=== PATIENT | male | born 1960 | race Caucasian/White ===

== ENCOUNTER 2020-05-20 09:58 | Outpatient (CLI) | payer MEDICARE, BC, SELFPAY ==
[2020-05-20 12:30] LABS: Basophils # 0.1 10^3/uL (0.0-0.1); Basophils % 0.9 %; Eosinophils # 0.2 10^3/uL (0.0-0.8); Eosinophils % 3.4 %; Hematocrit 41.2 % (42.0-52.0); Hemoglobin 13.5 g/dL (11.7-16.6); Lymphocytes # 1.2 10^3/uL (0.8-4.8); Lymphocytes % 21.2 %; Mean Corpuscular HGB Conc 32.8 g/dL (30.0-36.0); Mean Corpuscular Hemoglobin 30.1 pg (28.0-34.0); Mean Corpuscular Volume 91.8 fL (80-94); Mean Platelet Volume 8.7 fL (7.4-10.4); Monocytes # 0.5 10^3/uL (0.2-0.9); Monocytes % 9.5 %; Neutrophils # 3.65 10^3/uL (1.8-7.7); Neutrophils % 64.5 %; Nucleated Red Blood Cells % 0 %; Platelet Count 276 10^3/cmm (130-400); Red Blood Count 4.49 10^6/uL (4.1-5.3); Red Cell Distribution Width 12.8 % (12.1-15.1); White Blood Count 5.7 10^3/uL (4.0-10.0)
[2020-05-20 12:54] LABS: Alanine Aminotransferase 21 U/L (0-41); Albumin Level 4.1 g/dL (3.5-5.2); Alkaline Phosphatase 90 IU/L (40-130); Anion Gap 12.1 (5-19); Aspartate Amino Transferase 30 U/L (0-40); Blood Urea Nitrogen 14 mg/dL (6-20); Calcium 8.7 mg/dL (8.5-10.5); Carbon Dioxide 27 mmol/L (22-29); Chloride 100 mmol/L (98-107); Globulin 2.3 g/dL (1.3-4.6); Glomerular Filtration Rate 99.3 mL/min (90-130); Glucose 197 mg/dL (65-115); Osmolality Calculated 282 mOsm/kg (285-295); Potassium 4.1 mmol/L (3.5-5.1); Sodium 135 mmol/L (136-145); Total Bilirubin 0.3 mg/dL (0.15-1.2); Total Protein 6.4 g/dL (6.6-8.7)
--- NOTE | 2020-05-21 16:31 | ONC CON_ITS ---
Dr. Swenson New Patient Note Patient: Chris Byrne Unit #: [id number]: [id number] Dicatated By: Idalmis Swenson M.D.Date of Visit: May 20, 2020 Onc MED New Patient/Consult Referring Physician: No 'Referrals from' exist for this patient. History of Present Illness: Mr. Chris Byrne, 60-year-old gentleman with a history of multiple myeloma diagnosed early 2016 as per patient he has history of chronic back pain but just before diagnosis he had sudden onset of back pain which was so severe, he could not stand and had a fall, he went to see his chiropractor but without much relief eventually underwent MRI scan of the spine which showed significant abnormality at L2, in addition to evidence of anemia on his blood test patient was referred to cancer center in [place] where he was diagnosed with multiple myeloma information regarding staging and risks is not available. Initially he was treated with RVD regimen, as per patient after about 2 cycles patient was referred to [facility] where he underwent VDT-PACE induction chemotherapy followed by melphalan-based stem cell transportation twice, the first melphalan was 200 mg/m??? and second 1 was 140 mg/m??? likely because of C. difficile. The second VDT-PACE consolidation was at 75% of the dose. Subsequently patient achieved stringently defined complete remission with a negative bone marrow and no evidence of abnormal immunofixation in the serum or in the urine done in July 2017. He was recommended for maintenance therapy with carfilzomib, Revlimid and dexamethasone avoiding Velcade because of neuropathy. The maintenance regimen was started on September 18, 2017 with carfilzomib 27 mg/m??? on day 1, 2, 8, 9, 15 and 16 every 28 days cycle, Revlimid 20 mg p.o. daily for 21 days followed by 7 days off and dexamethasone 8 mg on the days of carfilzomib. On his follow-up visit in November [address] [facility], Revlimid was reduced to 15 mg p.o. daily for 21 days q. 28 days. Revlimid dose was eventually decreased further to 10 mg p.o. daily for 2 weeks on 1 week off because of persistent cytopenias. Dexamethasone was also reduced because of insomnia. Eventually, Revlimid was stopped in March 2019 because of persistent dysplastic features seen on the follow-up bone marrow Done in March 2019, as he continued to be in stringent remission, all chemotherapy was stopped in mid December 2019. He was also started on IVIG in April 2018 for hypogammaglobulinemia with recurrent significant infections, which was also discontinued in mid December 2019. Patient was hospitalized in [facility] in December 2018 with a bilateral pneumonia and sepsis with high-grade fever, confusion and was diagnosed with possible hepatic encephalopathy as his ammonia was elevated on 56 of unknown reason, seen by seat pack inspector Dr. Varghese, was diagnosed with fatty liver. Patient had bone marrow biopsies done in November 2018, there were some abnormalities reported at that time including left shift erythropoiesis, with megaloblastoid changes, and rare forms with irregular nuclear contours and nuclear budding. Repeat bone marrow biopsy done in March 2019, again showed some dysplastic features and as such patient was asked to stop Revlimid Another bone marrow evaluation done in July 2019 which confirmed no evidence of recurrence, unremarkable echocardiogram and patient was thought to be in stringent remission at that time he was recommended to continue with carfilzomib and dexamethasone, as mentioned earlier Revlimid was discontinued in March 2019 because of dysplastic changes seen in the bone marrow evaluation done in March 2019. And again as mentioned earlier chemotherapy was discontinued in December 2019 after total of almost 3 years of total including maintenance therapy. Patient has been complaining of lower extremity cramps occasionally occurs in the hand, MRI of thoracic/lumbar spine done in January 2019 showed small central disc protrusion at T7-T8 with minimal anterior thecal sac indentation. There was also L4 and L5 vertebral body findings consistent with recent to subacute compression fractures with an old compression fracture at L2 treated with kyphoplasty. Patient was referred to Dr. Maxwell from neurosurgery, no surgical intervention was necessary recommended except supportive care.. Patient went back to [facility] in March 2019, underwent thoracic level epidural injection with some improvement in the pain and he is using Flexeril as needed. He remains on OxyContin regularly and oxycodone as needed for his significant back pain. Patient was also complaining of off and on swelling of fingers and joints in the hand most pronounced in the thumbs, he was referred to rheumatology in January 2020, was diagnosed as having tendinitis, and requiring steroid injections. In March 2019 he was also referred to endocrinology , for diabetes mellitus and hypogonadism patient was treated with glipizide/Glucotrol and testosterone supplements. Patient was also having abdominal cramps and recurrent low-grade fever he was diagnosed with C. difficile based on stool panel by PCR in October 2019. He was seen by infectious disease and was started on tapered course of vancomycin, eventually stay indefinitely on vancomycin 125 mg 3 times a week, with this is diarrhea and abdominal cramps improved. But vancomycin was recommended to be stopped by [facility] in mid December 2019. Patient did undergo go L2 kyphoplasty in [facility].. As per patient he was expected to undergo 2 other kyphoplasty in [place] but was not recommended by surgeon. And he still has compression fracture of T10, L4 and L5. He continued to have some cognitive dysfunction but no confusion or focal neurological issue. Except persistent neuropathy specifically in the feet, mainly in the toes. With waxing and waning numbness, tingling, occasionally burning. Also has mild tremors but stable Occasionally nausea, being controlled with Phenergan. And also on Protonix. Past medical history significant for hospitalization in the end of February 2018 with Legionella pneumonia, bilateral lung infiltrate, in addition to two 7 mm pulmonary nodules on the right History of swelling in the right neck at the end of December 15, venous Doppler study in the vascular surgery office showed right IJ acute occlusive thrombosis, he was started on Eliquis with improvement of symptom, as he continued to have problem with the Port-A-Cath, it was exchanged by interventional transmission and coordination engineer in April 2018 and now functional. History of reaction to Zometa in the form of diffuse bone pain for several days, almost flulike symptoms. This occurred despite of him taking Claritin every day. With increased creatinine Zometa was discontinued and Xgeva was under consideration. History of B12 deficiency now on B12 supplement on monthly basis. Patient moved to [place] from [place], and decided to establish care in [place] along with continued follow-up at [facility]. Today, he is complaining of bilateral forearm itching and rash especially on the dorsum side., Also complaining of generalized weakness and fatigue but no fever chills, no nausea or vomiting, no diarrhea or constipation, no new bony pains, back pain is under control with current pain medication with long-acting OxyContin and oxycodone. Patient said he is going to myeloma clinic at [facility] next week for follow-up and work-up including bone marrow evaluation. No more abdominal pain or cramps or diarrhea. No recurrent fever mild peripheral neuropathy involving bilateral hand and feet. Past Medical History: Mr. Kingston medical history consists of anemia, b12 deficiency, fatty liver disease, gastroesophageal reflux disease, history of c-diff, history of right subclavian dvt, hypogonadism, left lung pulmonary nodules, multiple compression fractures, non melanoma skin cancer, peripheral neuropathy, and type II diabetes. Past Surgical History: Mr. Blancos surgical/procedural history consists of achilles, bone marrow aspiration/biopsy, port a cath, stent placement, and wrist. Medications: Acyclovir 1 Tablet (of 400 mg) Oral b.i.d., Ativan 1 Tablet (of 1 mg) Oral at bedtime, Claritin 1 Capsule (of 10 mg) Oral every am, Cyclobenzaprine HCl 1 Tablet (of 10 mg) Oral at bedtime, Eliquis 1 Tablet (of 5 mg) Oral b.i.d., Ferrous Sulfate 1 Tablet (of 325 (65 fe) mg) Oral daily, glipiZIDE ER 1 Tablet (of 2.5 mg) Tablet SR 24 HR Oral b.i.d., Klor-Con 10 1 Tablet (of 10 meq) Tablet, controlled release Oral b.i.d., Lomotil Tablet Oral PRN, Magnesium (250 mg) Tablet Oral daily, Melatonin (3 mg) Capsule Oral at bedtime, oxyCODONE HCl 1 Tablet (of 10 mg) Oral PRN, oxyCODONE HCl ER 1 Tablet (of 30 mg) Tablet ER 12 HR Abuse-Deterrent Oral b.i.d., Phenergan 1 Tablet (of 25 mg) Oral PRN, Protonix 1 Tablet (of 40 mg) Tablet, enteric coated Oral every am, Stool Softener 1 Tablet (of 100 mg) Oral b.i.d. Allergies: No Known Allergies. Social History: Mr. Byrne is and he is an unknown. He has no history of drinking. He has indicated exposure to the following products: chewing tobacco. pt states he chews alot. Family History: Mr. Byrne's mother at age 75: lymphoma. Mr. Byrne's father at age 75. Mr. Byrne has 1 sister who is . Review Of Symptoms: Constitutional - Appetite is diminished and weight is stable. No fever or hot flashes. Positive for night sweats. Energy level is poor, ENMT - No sinus congestion/drainage. No mouth sores. No sore throat or difficulty swallowing, Hematologic/Lymphatic - Positive for easy bruising and bleeding, Respiratory - No shortness of breath. No cough. No pleuritic pain or hemoptysis, Cardiovascular - No angina pain. No palpitations, Gastrointestinal - No nausea or vomiting. No heartburn or acid reflux. Pt flucuates between diarrhea and constipation. No blood in the stool or black stools, Genitourinary (M) - No dysuria or hematuria. Positive for urinary frequency. No urgency or incontinence, Musculoskeletal - Positive for joint pain, Neurologic - No headache or dizziness. No numbness or tingling. No other focal neurologic symptoms, Psychiatric - No anxiety or depression. Positive for insomnia. Vital Signs: Performed on May 20, 2020 10:43: 5, 34.92 (HIGH), 2.27 sq.m, 70.00 in, 97 %, 83 /min, 20 /min, 133/92 mm(hg), 97.5 F (LOW), and 243.4 lbs (HIGH). Performance Status: 1 - No physically strenuous activity, but ambulatory and able to carry out light or sedentary work (e.g. office work, light house work). (ECOG) Physical Examination: ENMT - No mouth sores, no thrush, no jaundice, Respiratory - Lungs are clear, Cardiovascular - Regular rate and rhythm of heart, Abdomen - Soft, bowel sounds present, Extremities - No lower extremity edema, but fine maculopapular rash involving dorsum of bilateral forearm, no oozing or blister seen. Lab/Imaging: Most recent lab results are not available for this patient. 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 Patient continued with carfilzomib and dexamethasone till mid December 2019, now stringently defined complete remission. Compression fracture related to multiple myeloma, involvement of T10, L2, L4 and L5. Status post kyphoplasty for L2. Chronic back pain on OxyContin 30 mg p.o. twice a day and OxyIR 10 mg as needed and Flexeril as needed. Status post epidural injection at multiple levels. Peripheral neuropathy due to chemotherapy, now being observed. History of acute kidney injury, and allergic reaction including bone pain despite of Claritin due to Zometa which was discontinued. Xgeva was discussed. DVT of right IJ Port-A-Cath setting, he is on Eliquis 5 mg twice a day, history of Port-A-Cath exchange no functional. Recommended to continue with Eliquis as long as patient has Port-A-Cath.. Common variable immune deficiency/hypogammaglobinemia with recurrent significant respiratory infection status post IVIG till December 2019. Insomnia, controlled with Ativan 1 mg at night with melatonin. B12 deficiency, on monthly B12 supplements. Diabetes mellitus on glipizide 2.5 mg daily. Hypogonadism, on testosterone supplement. Fatty liver History of C. difficile infection causing abdominal cramps and diarrhea treated with tapering dose of vancomycin which was discontinued in December 2019. Fatigue, multifactorial Rash with itching primarily on the forearm, treated with CeraVe cream with some success. Plan: Discussed with patient regarding his concerns questions and follow-up plans, patient is being followed at myeloma clinic at [facility] and he is scheduled to go there next week for follow-up visit as well as work-up including bone marrow evaluation. We will follow-up with them and their guidelines As far as bilateral forearm skin rash/itching is concerned, patient said he tried CeraVe cream, it did not help him much, clinically it appears he may have mild contact dermatitis as no other parts of body is involved with rash or itching he was advised to use [id number] hydrocortisone cream, if no improvement will refer him to dermatology for evaluation As per the generalized weakness and fatigue is concerned, it appears multifactorial could be due to chronic narcotic use for chronic back pain, patient will discuss with pain clinic at [facility] for dose adjustment if needed.We will also renew his prescriptions and arrange a referral to require physicians In the meantime we will flush his Port-A-Cath today and obtain baseline CBC CMP and patient return to clinic in 1 month for port flush and follow-up. Signed By: Idalmis Swenson M.D. <<Signature on File>>
== END 2020-05-20 09:59 | disposition home or self-care (01) ==
LOC: ONCMED 10:07
PROVIDERS: Visit Provider Internal Medicine Hematology & Oncology
DX: C90.00 Multiple myeloma not having achieved remission (principal); G62.0 Drug-induced polyneuropathy; T45.1X5A Adverse effect of antineoplastic and immunosuppressive drugs, initial encounter; G47.00 Insomnia, unspecified; D51.9 Vitamin B12 deficiency anemia, unspecified; K76.0 Fatty (change of) liver, not elsewhere classified; K21.9 Gastro-esophageal reflux disease without esophagitis; E11.9 Type 2 diabetes mellitus without complications
CPT/HCPCS: 36591; 80053; 85025; 99204

== ENCOUNTER → 2020-05-29 11:37 | Outpatient (BNVA) | payer MEDICARE, BC, SELFPAY | PROVIDERS: Visit Provider Nurse Practitioner Family | DX: Z11.59 Encounter for screening for other viral diseases (principal) | CPT/HCPCS: 87635 ==

== ENCOUNTER → 2020-06-11 10:46 | Outpatient (BNVA) | payer MEDICARE, BC, SELFPAY | PROVIDERS: Referring Provider Internal Medicine Hematology & Oncology; Visit Provider Anesthesiology | DX: G89.29 Other chronic pain (principal); M54.9 Dorsalgia, unspecified; F17.220 Nicotine dependence, chewing tobacco, uncomplicated; Z79.891 Long term (current) use of opiate analgesic; Z71.6 Tobacco abuse counseling | CPT/HCPCS: 99213 ==

== ENCOUNTER 2020-06-19 09:23 | Outpatient (CLI) | payer MEDICARE, BC, SELFPAY ==
[2020-06-19 10:35] LABS: Basophils # 0.1 10^3/uL (0.0-0.1); Basophils % 1.1 %; Eosinophils % 0.2 %; Hematocrit 39.8 % (42.0-52.0); Hemoglobin 13.1 g/dL (11.7-16.6); Lymphocytes # 1.5 10^3/uL (0.8-4.8); Lymphocytes % 23.1 %; Mean Corpuscular HGB Conc 32.9 g/dL (30.0-36.0); Mean Corpuscular Hemoglobin 30.3 pg (28.0-34.0); Mean Corpuscular Volume 92.1 fL (80-94); Mean Platelet Volume 8.9 fL (7.4-10.4); Monocytes # 0.7 10^3/uL (0.2-0.9); Neutrophils % 65.1 %; Nucleated Red Blood Cells % 0 %; Platelet Count 268 10^3/cmm (130-400); Red Blood Count 4.32 10^6/uL (4.1-5.3); Red Cell Distribution Width 13.7 % (12.1-15.1); White Blood Count 6.6 10^3/uL (4.0-10.0)
[2020-06-19 10:45] LABS: Alanine Aminotransferase 19 U/L (0-41); Albumin Level 3.9 g/dL (3.5-5.2); Alkaline Phosphatase 95 IU/L (40-130); Anion Gap 12.1 (5-19); Aspartate Amino Transferase 28 U/L (0-40); Blood Urea Nitrogen 14 mg/dL (6-20); Calcium 8.6 mg/dL (8.5-10.5); Carbon Dioxide 27 mmol/L (22-29); Chloride 102 mmol/L (98-107); Globulin 2.1 g/dL (1.3-4.6); Glomerular Filtration Rate 68.8 mL/min (90-130); Glucose 211 mg/dL (65-115); Immunoglobulin IGA 64 mg/dL (70-400); Immunoglobulin IGG 599 mg/dL (700-1600); Osmolality Calculated 286 mOsm/kg (285-295); Potassium 4.1 mmol/L (3.5-5.1); Sodium 137 mmol/L (136-145); Total Bilirubin 0.5 mg/dL (0.15-1.2)
[2020-06-19 11:05] LABS: Immunoglobulin IGM 15 mg/dL (40-230)
--- NOTE | 2020-06-19 12:38 | ONC FU_ITS ---
Dr. Swenson follow up note Patient: Chris Byren Unit #: [id number]: [id number] Dicatated By: Idalmis Swenson M.D.Date of Visit:Jun 19, 2020 Onc Med Follow-up/Prog Note History of Present Illness: Mr. Chris Byrne, 60-year-old gentleman with a history of multiple myeloma diagnosed early 2016 as per patient he has history of chronic back pain but just before diagnosis he had sudden onset of back pain which was so severe, he could not stand and had a fall, he went to see his chiropractor but without much relief eventually underwent MRI scan of the spine which showed significant abnormality at L2, in addition to evidence of anemia on his blood test patient was referred to cancer center in [place] where he was diagnosed with multiple myeloma information regarding staging and risks is not available. Initially he was treated with RVD regimen, as per patient after about 2 cycles patient was referred to [facility] where he underwent VDT-PACE induction chemotherapy followed by melphalan-based stem cell transportation twice, the first melphalan was 200 mg/m??? and second 1 was 140 mg/m??? likely because of C. difficile. The second VDT-PACE consolidation was at 75% of the dose. Subsequently patient achieved stringently defined complete remission with a negative bone marrow and no evidence of abnormal immunofixation in the serum or in the urine done in July 2017. He was recommended for maintenance therapy with carfilzomib, Revlimid and dexamethasone avoiding Velcade because of neuropathy. The maintenance regimen was started on September 18, 2017 with carfilzomib 27 mg/m??? on day 1, 2, 8, 9, 15 and 16 every 28 days cycle, Revlimid 20 mg p.o. daily for 21 days followed by 7 days off and dexamethasone 8 mg on the days of carfilzomib. On his follow-up visit in November 2017 at [facility], Revlimid was reduced to 15 mg p.o. daily for 21 days q. 28 days. Revlimid dose was eventually decreased further to 10 mg p.o. daily for 2 weeks on 1 week off because of persistent cytopenias. Dexamethasone was also reduced because of insomnia. Eventually, Revlimid was stopped in March 2019 because of persistent dysplastic features seen on the follow-up bone marrow Done in March 2019, as he continued to be in stringent remission, all chemotherapy was stopped in mid December 2019. He was also started on IVIG in April 2018 for hypogammaglobulinemia with recurrent significant infections, which was also discontinued in mid December 2019. Patient was hospitalized in [facility] in December 2018 with a bilateral pneumonia and sepsis with high-grade fever, confusion and was diagnosed with possible hepatic encephalopathy as his ammonia was elevated on 56 of unknown reason, seen by licensed bondsman Dr. Varghese, was diagnosed with fatty liver. Patient had bone marrow biopsies done in November 2018, there were some abnormalities reported at that time including left shift erythropoiesis, with megaloblastoid changes, and rare forms with irregular nuclear contours and nuclear budding. Repeat bone marrow biopsy done in March 2019, again showed some dysplastic features and as such patient was asked to stop Revlimid Another bone marrow evaluation done in July 2019 which confirmed no evidence of recurrence, unremarkable echocardiogram and patient was thought to be in stringent remission at that time he was recommended to continue with carfilzomib and dexamethasone, as mentioned earlier Revlimid was discontinued in March 2019 because of dysplastic changes seen in the bone marrow evaluation done in March 2019. And again as mentioned earlier chemotherapy was discontinued in December 2019 after total of almost 3 years of total including maintenance therapy. Patient has been complaining of lower extremity cramps occasionally occurs in the hand, MRI of thoracic/lumbar spine done in January 2019 showed small central disc protrusion at T7-T8 with minimal anterior thecal sac indentation. There was also L4 and L5 vertebral body findings consistent with recent to subacute compression fractures with an old compression fracture at L2 treated with kyphoplasty. Patient was referred to Dr. Maxwell from neurosurgery, no surgical intervention was necessary recommended except supportive care.. Patient went back to [facility] in March 2019, underwent thoracic level epidural injection with some improvement in the pain and he is using Flexeril as needed. He remains on OxyContin regularly and oxycodone as needed for his significant back pain. Patient was also complaining of off and on swelling of fingers and joints in the hand most pronounced in the thumbs, he was referred to rheumatology in January 2020, was diagnosed as having tendinitis, and requiring steroid injections. In March 2019 he was also referred to endocrinology , for diabetes mellitus and hypogonadism patient was treated with glipizide/Glucotrol and testosterone supplements. Patient was also having abdominal cramps and recurrent low-grade fever he was diagnosed with C. difficile based on stool panel by PCR in October 2019. He was seen by infectious disease and was started on tapered course of vancomycin, eventually stay indefinitely on vancomycin 125 mg 3 times a week, with this is diarrhea and abdominal cramps improved. But vancomycin was recommended to be stopped by [facility] in mid December 2019. Patient did undergo go L2 kyphoplasty in [facility].. As per patient he was expected to undergo 2 other kyphoplasty in [place] but was not recommended by surgeon. And he still has compression fracture of T10, L4 and L5. He continued to have some cognitive dysfunction but no confusion or focal neurological issue. Except persistent neuropathy specifically in the feet, mainly in the toes. With waxing and waning numbness, tingling, occasionally burning. Also has mild tremors but stable Occasionally nausea, being controlled with Phenergan. And also on Protonix. Past medical history significant for hospitalization in the end of February 2018 with Legionella pneumonia, bilateral lung infiltrate, in addition to two 7 mm pulmonary nodules on the right History of swelling in the right neck at the end of December 15, venous Doppler study in the vascular surgery office showed right IJ acute occlusive thrombosis, he was started on Eliquis with improvement of symptom, as he continued to have problem with the Port-A-Cath, it was exchanged by interventional underwater roboticist in April 2018 and now functional. History of reaction to Zometa in the form of diffuse bone pain for several days, almost flulike symptoms. This occurred despite of him taking Claritin every day. With increased creatinine Zometa was discontinued and Xgeva was under consideration. History of B12 deficiency now on B12 supplement on monthly basis. Patient moved to [place] from [place], and decided to establish care in [place] along with continued follow-up at [facility]. Came for follow-up, denies any specific complaint except chronic bone pain and generalized weakness and fatigue, patient recently went to [facility] myeloma clinic where he underwent follow-up evaluation including bone marrow, 24-hour urine and MRI scan of the bone and he was confirmed being in complete remission. Patient denies any fever chills, denies any nausea or vomiting denies any diarrhea or constipation, denies any headaches. Denies any shortness of breath at rest. Patient was referred to pain clinic for his chronic pain management but patient did not like them as per patient they want to have total control over his pain medication without any guidance from [facility] and he did not like that and decided not to follow-up with them that they are requesting us to give him prescription for his pain medication. Medications: Acyclovir 1 Tablet (of 400 mg) Oral b.i.d., Ativan 1 Tablet (of 1 mg) Oral at bedtime, Claritin 1 Capsule (of 10 mg) Oral every am, Cyclobenzaprine HCl 1 Tablet (of 10 mg) Oral at bedtime, Eliquis 1 Tablet (of 5 mg) Oral b.i.d., Ferrous Sulfate 1 Tablet (of 325 (65 fe) mg) Oral daily, glipiZIDE ER 1 Tablet (of 2.5 mg) Tablet SR 24 HR Oral b.i.d., Klor-Con 10 1 Tablet (of 10 meq) Tablet, controlled release Oral b.i.d., Lomotil Tablet Oral PRN, Magnesium (250 mg) Tablet Oral daily, Melatonin (3 mg) Capsule Oral at bedtime, oxyCODONE HCl 1 Tablet (of 10 mg) Oral PRN, oxyCODONE HCl ER 1 Tablet (of 30 mg) Tablet ER 12 HR Abuse-Deterrent Oral b.i.d., Phenergan 1 Tablet (of 25 mg) Oral PRN, Protonix 1 Tablet (of 40 mg) Tablet, enteric coated Oral every am, Stool Softener 1 Tablet (of 100 mg) Oral b.i.d. Allergies: No Known Allergies. Review of Systems: Constitutional - Appetite is diminished and weight is stable. No fever or hot flashes. Positive for night sweats. Energy level is poor, ENMT - No sinus congestion/drainage. No mouth sores. No sore throat or difficulty swallowing, Hematologic/Lymphatic - Positive for easy bruising and bleeding, Respiratory - No shortness of breath. No cough. No pleuritic pain or hemoptysis, Cardiovascular - No angina pain. No palpitations, Gastrointestinal - No nausea or vomiting. No heartburn or acid reflux. Pt flucuates between diarrhea and constipation. No blood in the stool or black stools, Genitourinary (M) - No dysuria or hematuria. Positive for urinary frequency. No urgency or incontinence, Musculoskeletal - Positive for joint pain, Neurologic - No headache or dizziness. No numbness or tingling. No other focal neurologic symptoms, Psychiatric - No anxiety or depression. Positive for insomnia. Vital Signs: Performed on Jun 19, 2020 10:59 Height - 70.00 in Weight - 243.6 lbs (HIGH) BSA - 2.27 sq.m BMI - 34.95 (HIGH) Temperature - 97.3 F (LOW) Pulse - 89 /min Respiration - 16 /min BP - 129/93 mm(hg) O2 Sat - 98 % Pain - 4 Performance Status: 0 - Fully active, able to carry on all predisease activities without restrictions. (ECOG) Physical Examination: ENMT - No mouth sores, no thrush, no jaundice, Respiratory - Lungs are clear, Cardiovascular - Regular rate and rhythm of heart, Abdomen - Soft, bowel sounds present, Extremities - No visible Edema. Lab/Imaging: Test performed on May 20, 2020 12:17 Sodium 135 mmol/L Potassium 4.1 mmol/L Chloride 100 mmol/L CO2 27 mmol/L Anion Gap 12.1 BUN 14 mg/dL Creatinine 0.8 mg/dL Cr Clearance (Est) 157.1800 mL/min eGFR 99.3 mL/min Glucose 197 mg/dL Calcium 8.7 mg/dL Protein, Total 6.4 g/dL Albumin 4.1 g/dL Globulin 2.3 g/dL Bilirubin, Total 0.3 mg/dL ALT (SGPT) 21 U/L AST (SGOT) 30 U/L Alkaline Phosphatase 90 IU/L WBC 5.7 10 3/uL RBC 4.49 10 6/uL HGB 13.5 g/dL HCT 41.2 % MCV 91.8 fL MCH 30.1 pg MCHC 32.8 g/dL RDW 12.8 % Platelet Count 276 10 3/cmm MPV 8.7 fL Neutrophils 3.65 10 3/uL Lymphocytes 1.2 10 3/uL Monocytes 0.5 10 3/uL Eosinophils 0.2 10 3/uL Basophils 0.1 10 3/uL Neutrophil % 64.5 % Lymphocyte % 21.2 % Monocyte % 9.5 % Eosinophil % 3.4 % Basophils % 0.9 % NRBC % 0 % Impression: Multiple myeloma, diagnosed in early 2016, status post melphalan based high-dose chemotherapy with stem cell x2 at [facility] followed by maintenance therapy with carfilzomib/Revlimid/dexamethasone, Revlimid was discontinued because of progressive cytopenia and 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 Patient continued with carfilzomib and dexamethasone till mid December 2019, now stringently defined complete remission. Compression fracture related to multiple myeloma, involvement of T10, L2, L4 and L5. Status post kyphoplasty for L2. Chronic back pain on OxyContin 30 mg p.o. twice a day and OxyIR 10 mg as needed and Flexeril as needed. Status post epidural injection at multiple levels. Peripheral neuropathy due to chemotherapy, now being observed. History of acute kidney injury, and allergic reaction including bone pain despite of Claritin due to Zometa which was discontinued. Xgeva was discussed. DVT of right IJ Port-A-Cath setting, he is on Eliquis 5 mg twice a day, history of Port-A-Cath exchange no functional. Recommended to continue with Eliquis as long as patient has Port-A-Cath.. Common variable immune deficiency/hypogammaglobinemia with recurrent significant respiratory infection status post IVIG till December 2019. Insomnia, controlled with Ativan 1 mg at night with melatonin. B12 deficiency, on monthly B12 supplements. Diabetes mellitus on glipizide 2.5 mg daily. Hypogonadism, on testosterone supplement. Fatty liver History of C. difficile infection causing abdominal cramps and diarrhea treated with tapering dose of vancomycin which was discontinued in December 2019. Fatigue, multifactorial Rash with itching primarily on the forearm, treated with CeraVe cream with some success. Plan: Discussed with patient regarding his labs white blood count 6.6 hemoglobin 13.1 crit 39.8 platelets 268,000 CMP within normal limit except glucose 211 creatinine 1.1 and quantitative immunoglobin shows IgG 599 IgA 64 and SPEP is pending Clinically, patient is doing well with no signs symptom suggestive of recurrence of disease, recently underwent extensive follow-up work-up which included bone marrow evaluation/24-hour urine protein electrophoresis/immunofixation and MRI scan of the bones at [facility], as per patient he was informed being in complete remission. And he was recommended to continue with CBC CMP and SPEP on monthly basis and myeloma clinic at [facility] will monitor. Patient has chronic pain due to myeloma induced damage to his bones although in remission but still with significant pain requiring narcotics, he was referred to pain clinic for further management but patient did not like when he was informed that pain clinic will have total control without guidance from [facility] nor is requesting prescription for narcotics from our clinic as he go to [facility] every 6 months. We will give him prescriptions requested by him and then he will return to clinic in 3 months in the meantime he will continue port maintenance. Patient will also continue with monthly CBC CMP and SPEP as required by [facility] myeloma clinic and follow their instruction. Signed By: Idalmis Swenson M.D. <<Signature on File>>
== END 2020-06-19 09:24 | disposition home or self-care (01) ==
LOC: ONCMED 09:27
PROVIDERS: Visit Provider Internal Medicine Hematology & Oncology
DX: C90.01 Multiple myeloma in remission (principal); G89.3 Neoplasm related pain (acute) (chronic); E53.8 Deficiency of other specified B group vitamins; Z79.891 Long term (current) use of opiate analgesic; Z95.828 Presence of other vascular implants and grafts
CPT/HCPCS: 36591; 80053; 82248; 82784; 84155; 84165; 85025; 99214

== ENCOUNTER → 2020-07-07 13:38 | Outpatient (BNVA) | payer MEDICARE, BC, SELFPAY | PROVIDERS: Referring Provider Internal Medicine Hematology & Oncology; Visit Provider Orthopaedic Surgery | DX: M79.646 Pain in unspecified finger(s) (principal); R52 Pain, unspecified | CPT/HCPCS: 73080; 73140 ==

== ENCOUNTER 2020-07-08 09:03 | Outpatient (CLI) | payer MEDICARE, BC, SELFPAY ==
--- NOTE | 2020-07-10 13:56 | ONC FU_ITS ---
Dr. Swenson follow up note Patient: Chris Byrne Unit #: [id number]: [id number] Dicatated By: Idalmis Swenson M.D.Date of Visit:Jul 08, 2020 Onc Med Follow-up/Prog Note History of Present Illness: Mr. Chris Byrne, 60-year-old gentleman with a history of multiple myeloma diagnosed early 2016 as per patient he has history of chronic back pain but just before diagnosis he had sudden onset of back pain which was so severe, he could not stand and had a fall, he went to see his chiropractor but without much relief eventually underwent MRI scan of the spine which showed significant abnormality at L2, in addition to evidence of anemia on his blood test patient was referred to cancer center in [place] where he was diagnosed with multiple myeloma information regarding staging and risks is not available. Initially he was treated with RVD regimen, as per patient after about 2 cycles patient was referred to [facility] where he underwent VDT-PACE induction chemotherapy followed by melphalan-based stem cell transportation twice, the first melphalan was 200 mg/m??? and second 1 was 140 mg/m??? likely because of C. difficile. The second VDT-PACE consolidation was at 75% of the dose. Subsequently patient achieved stringently defined complete remission with a negative bone marrow and no evidence of abnormal immunofixation in the serum or in the urine done in July 2017. He was recommended for maintenance therapy with carfilzomib, Revlimid and dexamethasone avoiding Velcade because of neuropathy. The maintenance regimen was started on September 18, 2017 with carfilzomib 27 mg/m??? on day 1, 2, 8, 9, 15 and 16 every 28 days cycle, Revlimid 20 mg p.o. daily for 21 days followed by 7 days off and dexamethasone 8 mg on the days of carfilzomib. On his follow-up visit in November 2017 at [facility], Revlimid was reduced to 15 mg p.o. daily for 21 days q. 28 days. Revlimid dose was eventually decreased further to 10 mg p.o. daily for 2 weeks on 1 week off because of persistent cytopenias. Dexamethasone was also reduced because of insomnia. Eventually, Revlimid was stopped in March 2019 because of persistent dysplastic features seen on the follow-up bone marrow Done in March 2019, as he continued to be in stringent remission, all chemotherapy was stopped in mid December 2019. He was also started on IVIG in April 2018 for hypogammaglobulinemia with recurrent significant infections, which was also discontinued in mid December 2019. Patient was hospitalized in [facility] in December 2018 with a bilateral pneumonia and sepsis with high-grade fever, confusion and was diagnosed with possible hepatic encephalopathy as his ammonia was elevated on 56 of unknown reason, seen by forest worker Dr. Varghese, was diagnosed with fatty liver. Patient had bone marrow biopsies done in November 2018, there were some abnormalities reported at that time including left shift erythropoiesis, with megaloblastoid changes, and rare forms with irregular nuclear contours and nuclear budding. Repeat bone marrow biopsy done in March 2019, again showed some dysplastic features and as such patient was asked to stop Revlimid Another bone marrow evaluation done in July 2019 which confirmed no evidence of recurrence, unremarkable echocardiogram and patient was thought to be in stringent remission at that time he was recommended to continue with carfilzomib and dexamethasone, as mentioned earlier Revlimid was discontinued in March 2019 because of dysplastic changes seen in the bone marrow evaluation done in March 2019. And again as mentioned earlier chemotherapy was discontinued in December 2019 after total of almost 3 years of total including maintenance therapy. Patient has been complaining of lower extremity cramps occasionally occurs in the hand, MRI of thoracic/lumbar spine done in January 2019 showed small central disc protrusion at T7-T8 with minimal anterior thecal sac indentation. There was also L4 and L5 vertebral body findings consistent with recent to subacute compression fractures with an old compression fracture at L2 treated with kyphoplasty. Patient was referred to Dr. Maxwell from neurosurgery, no surgical intervention was necessary recommended except supportive care.. Patient went back to [facility] in March 2019, underwent thoracic level epidural injection with some improvement in the pain and he is using Flexeril as needed. He remains on OxyContin regularly and oxycodone as needed for his significant back pain. Patient was also complaining of off and on swelling of fingers and joints in the hand most pronounced in the thumbs, he was referred to rheumatology in January 2020, was diagnosed as having tendinitis, and requiring steroid injections. In March 2019 he was also referred to endocrinology , for diabetes mellitus and hypogonadism patient was treated with glipizide/Glucotrol and testosterone supplements. Patient was also having abdominal cramps and recurrent low-grade fever he was diagnosed with C. difficile based on stool panel by PCR in October 2019. He was seen by infectious disease and was started on tapered course of vancomycin, eventually stay indefinitely on vancomycin 125 mg 3 times a week, with this is diarrhea and abdominal cramps improved. But vancomycin was recommended to be stopped by [facility] in mid December 2019. Patient did undergo go L2 kyphoplasty in [facility].. As per patient he was expected to undergo 2 other kyphoplasty in [place] but was not recommended by surgeon. And he still has compression fracture of T10, L4 and L5. He continued to have some cognitive dysfunction but no confusion or focal neurological issue. Except persistent neuropathy specifically in the feet, mainly in the toes. With waxing and waning numbness, tingling, occasionally burning. Also has mild tremors but stable Occasionally nausea, being controlled with Phenergan. And also on Protonix. Past medical history significant for hospitalization in the end of February 2018 with Legionella pneumonia, bilateral lung infiltrate, in addition to two 7 mm pulmonary nodules on the right History of swelling in the right neck at the end of December 15, venous Doppler study in the vascular surgery office showed right IJ acute occlusive thrombosis, he was started on Eliquis with improvement of symptom, as he continued to have problem with the Port-A-Cath, it was exchanged by interventional premium cancellation clerk in April 2018 and now functional. History of reaction to Zometa in the form of diffuse bone pain for several days, almost flulike symptoms. This occurred despite of him taking Claritin every day. With increased creatinine Zometa was discontinued and Xgeva was under consideration. History of B12 deficiency now on B12 supplement on monthly basis. Patient moved to [place] from [place], and decided to establish care in [place] along with continued follow-up at [facility]. patient recently went to [facility] myeloma clinic where he underwent follow-up evaluation including bone marrow, 24-hour urine and MRI scan of the bone and he was confirmed being in complete remission. Came for follow-up as patient's has some issues and concerns regarding his prescriptions especially pain medication. Denies any fever chills denies any nausea or vomiting denies any new bony pains except chronic back pain and generalized musculoskeletal pain. Appetite is good. Medications: Acyclovir 1 Tablet (of 400 mg) Oral b.i.d., Ativan 1 Tablet (of 1 mg) Oral at bedtime, Claritin 1 Capsule (of 10 mg) Oral every am, Cyclobenzaprine HCl 1 Tablet (of 10 mg) Oral at bedtime, Eliquis 1 Tablet (of 5 mg) Oral b.i.d., Ferrous Sulfate 1 Tablet (of 325 (65 fe) mg) Oral daily, glipiZIDE ER 1 Tablet (of 2.5 mg) Tablet SR 24 HR Oral b.i.d., Klor-Con 10 1 Tablet (of 10 meq) Tablet, controlled release Oral b.i.d., Lomotil Tablet Oral PRN, Magnesium (250 mg) Tablet Oral daily, Melatonin (3 mg) Capsule Oral at bedtime, oxyCODONE HCl 1 Tablet (of 10 mg) Oral PRN, OxyCONTIN 1 Tablet (of 30 mg) Tablet ER 12 HR Abuse-Deterrent Oral b.i.d., Phenergan 1 Tablet (of 25 mg) Oral PRN, Protonix 1 Tablet (of 40 mg) Tablet, enteric coated Oral every am, Stool Softener 1 Tablet (of 100 mg) Oral b.i.d. Allergies: No Known Allergies. Review of Systems: Constitutional - Appetite is diminished and weight is stable. No fever or hot flashes. Positive for night sweats. Energy level is poor, ENMT - No sinus congestion/drainage. No mouth sores. No sore throat or difficulty swallowing, Hematologic/Lymphatic - Positive for easy bruising and bleeding, Respiratory - No shortness of breath. No cough. No pleuritic pain or hemoptysis, Cardiovascular - No angina pain. No palpitations, Gastrointestinal - No nausea or vomiting. No heartburn or acid reflux. Pt flucuates between diarrhea and constipation. No blood in the stool or black stools, Genitourinary (M) - No dysuria or hematuria. Positive for urinary frequency. No urgency or incontinence, Musculoskeletal - Positive for joint pain, Neurologic - No headache or dizziness. No numbness or tingling. No other focal neurologic symptoms, Psychiatric - No anxiety or depression. Positive for insomnia. Vital Signs: Performed on Jul 08, 2020 09:10 Height - 70.00 in Weight - 240.8 lbs (LOW) BSA - 2.26 sq.m BMI - 34.55 (HIGH) Temperature - 97.3 F (LOW) Pulse - 89 /min Respiration - 24 /min BP - 143/95 mm(hg) (HIGH) O2 Sat - 95 % (LOW) Pain - 0 Performance Status: 0 - Fully active, able to carry on all predisease activities without restrictions. (ECOG) Physical Examination: ENMT - No mouth sores, no thrush, Respiratory - Lungs are clear, Cardiovascular - Regular rate and rhythm of heart, Abdomen - Soft, bowel sounds present, Extremities - No visible edema. Lab/Imaging: Test performed on May 20, 2020 12:17 Sodium 135 mmol/L Potassium 4.1 mmol/L Chloride 100 mmol/L CO2 27 mmol/L Anion Gap 12.1 BUN 14 mg/dL Creatinine 0.8 mg/dL Cr Clearance (Est) 157.1800 mL/min eGFR 99.3 mL/min Glucose 197 mg/dL Calcium 8.7 mg/dL Protein, Total 6.4 g/dL Albumin 4.1 g/dL Globulin 2.3 g/dL Bilirubin, Total 0.3 mg/dL ALT (SGPT) 21 U/L AST (SGOT) 30 U/L Alkaline Phosphatase 90 IU/L WBC 5.7 10 3/uL RBC 4.49 10 6/uL HGB 13.5 g/dL HCT 41.2 % MCV 91.8 fL MCH 30.1 pg MCHC 32.8 g/dL RDW 12.8 % Platelet Count 276 10 3/cmm MPV 8.7 fL Neutrophils 3.65 10 3/uL Lymphocytes 1.2 10 3/uL Monocytes 0.5 10 3/uL Eosinophils 0.2 10 3/uL Basophils 0.1 10 3/uL Neutrophil % 64.5 % Lymphocyte % 21.2 % Monocyte % 9.5 % Eosinophil % 3.4 % Basophils % 0.9 % NRBC % 0 % Impression: Multiple myeloma, diagnosed in early 2016, status post melphalan based high-dose chemotherapy with stem cell x2 at [facility] followed by maintenance therapy with carfilzomib/Revlimid/dexamethasone, Revlimid was discontinued because of progressive cytopenia and 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 Patient continued with carfilzomib and dexamethasone till mid December 2019, now stringently defined complete remission. Compression fracture related to multiple myeloma, involvement of T10, L2, L4 and L5. Status post kyphoplasty for L2. Chronic back pain on OxyContin 30 mg p.o. twice a day and OxyIR 10 mg as needed and Flexeril as needed. Status post epidural injection at multiple levels. Peripheral neuropathy due to chemotherapy, now being observed. History of acute kidney injury, and allergic reaction including bone pain despite of Claritin due to Zometa which was discontinued. Xgeva was discussed. DVT of right IJ Port-A-Cath setting, he is on Eliquis 5 mg twice a day, history of Port-A-Cath exchange no functional. Recommended to continue with Eliquis as long as patient has Port-A-Cath.. Common variable immune deficiency/hypogammaglobinemia with recurrent significant respiratory infection status post IVIG till December 2019. Insomnia, controlled with Ativan 1 mg at night with melatonin. B12 deficiency, on monthly B12 supplements. Diabetes mellitus on glipizide 2.5 mg daily. Hypogonadism, on testosterone supplement. Fatty liver History of C. difficile infection causing abdominal cramps and diarrhea treated with tapering dose of vancomycin which was discontinued in December 2019. Fatigue, multifactorial Rash with itching primarily on the forearm, treated with CeraVe cream with some success. Plan: Discussed with patient and his regarding his prescriptions and pain management. Patient was advised , as he is in complete remission and still requiring high dose of narcotics, I will recommend him to go to pain clinic per proper evaluation and pain management patient did go to pain clinic here but his did not like their first experience there, as, he was asked for random urine test and pill count, moreover , when pain clinic physician told him that he will be in charge of his pain medication not [facility] , as patient requested, he did not like it , so he wants us to fill his pain medication prescriptions and this issue was discussed with [facility] BMT clinic and they also recommended pain clinic evaluation regarding narcotic use and patient's safety, now patient and his , agreed to go to pain clinic for evaluation and management. And also, as far as follow-up is concerned, patient is being followed at [facility] every 3 to 4 months and BMT at [facility] is also checking his myeloma panel on monthly basis and patient was provided kits for Sample collection , as per BMT clinic all he has to go to local lab or clinic for a blood drawn and then send Back to them for the testing. As far as other prescription like acyclovir , as per BMT clinic at [facility], patient was given prescription for that and they will manage that. And now it is clear to the patient and his that they have to go to pain clinic for pain management and for prophylactic anti-infective, BMT clinic at [facility] will manage and they will also monitor his myeloma panel as patient was provided kits to send samples to them. And we will see him on as-needed basis as patient is going to [facility] on regular basis every 3 to 4 months and they are following him with monthly myeloma panel.. Patient will follow-up with his PMD on regular basis Signed By: Idalmis Swenson M.D. <<Signature on File>>
== END 2020-07-08 09:04 | disposition home or self-care (01) ==
LOC: ONCMED 09:07
PROVIDERS: PCP Internal Medicine; Visit Provider Internal Medicine Hematology & Oncology
DX: C90.01 Multiple myeloma in remission (principal); G89.29 Other chronic pain; Z79.891 Long term (current) use of opiate analgesic; G62.0 Drug-induced polyneuropathy; T45.1X5D Adverse effect of antineoplastic and immunosuppressive drugs, subsequent encounter; E53.8 Deficiency of other specified B group vitamins; E11.9 Type 2 diabetes mellitus without complications; Z79.84 Long term (current) use of oral hypoglycemic drugs; K76.0 Fatty (change of) liver, not elsewhere classified; Z86.718 Personal history of other venous thrombosis and embolism; Z79.01 Long term (current) use of anticoagulants; Z92.22 Personal history of monoclonal drug therapy
CPT/HCPCS: G0463

== ENCOUNTER 2020-07-22 13:45 | Outpatient (CLI) | payer MEDICARE, BC, SELFPAY | END 2020-07-22 13:46 | disposition home or self-care (01) | LOC: ONCMED 13:50 | PROVIDERS: PCP Internal Medicine; Visit Provider Internal Medicine Hematology & Oncology | DX: C90.01 Multiple myeloma in remission (principal); E13.9 Other specified diabetes mellitus without complications; K75.81 Nonalcoholic steatohepatitis (NASH); Z45.2 Encounter for adjustment and management of vascular access device | CPT/HCPCS: 80053; 80061; 83036; 84443; 85025; 96523 ==

== ENCOUNTER 2020-08-19 06:10 | Outpatient (CLI) | payer MEDICARE, BC, SELFPAY ==
[2020-08-19 11:43] LABS: Basophils # 0.1 10^3/uL (0.0-0.1); Basophils % 0.6 %; Eosinophils # 0.3 10^3/uL (0.0-0.8); Eosinophils % 3.5 %; Hematocrit 43.7 % (42.0-52.0); Hemoglobin 14.3 g/dL (11.7-16.6); Lymphocytes # 1.6 10^3/uL (0.8-4.8); Lymphocytes % 19.6 %; Mean Corpuscular HGB Conc 32.7 g/dL (30.0-36.0); Mean Corpuscular Hemoglobin 30.1 pg (28.0-34.0); Mean Platelet Volume 8.7 fL (7.4-10.4); Monocytes # 0.6 10^3/uL (0.2-0.9); Monocytes % 7.4 %; Neutrophils # 5.44 10^3/uL (1.8-7.7); Neutrophils % 68.4 %; Nucleated Red Blood Cells % 0 %; Platelet Count 270 10^3/cmm (130-400); Red Blood Count 4.75 10^6/uL (4.1-5.3); Red Cell Distribution Width 12.9 % (12.1-15.1)
[2020-08-19 12:14] LABS: Alanine Aminotransferase 16 U/L (0-41); Albumin Level 3.9 g/dL (3.5-5.2); Alkaline Phosphatase 101 IU/L (40-130); Anion Gap 14.8 (5-19); Aspartate Amino Transferase 21 U/L (0-40); Blood Urea Nitrogen 16 mg/dL (6-20); Calcium 8.4 mg/dL (8.5-10.5); Carbon Dioxide 25 mmol/L (22-29); Chloride 100 mmol/L (98-107); Glomerular Filtration Rate 86.7 mL/min (90-130); Glucose 245 mg/dL (65-115); Osmolality Calculated 291 mOsm/kg (285-295); Potassium 3.8 mmol/L (3.5-5.1); Sodium 136 mmol/L (136-145); Total Bilirubin 0.4 mg/dL (0.15-1.2); Total Protein 5.9 g/dL (6.6-8.7)
--- NOTE | 2020-08-20 07:50 | ONC FU_ITS ---
Dr. Honeycutt Patient Follow-Up Note Patient: Chris Byrne Unit #: [id number]: 1960 Dicatated By: Peter Honeycutt M.D.Date of Visit:Aug 19, 2020 Onc Med Follow-up/Prog Note Chief Complaint: Myeloma. History of Present Illness: This is a 60-year-old man with multiple myeloma, subtype unknown and currently in remission. His myeloma was diagnosed sometime early in 2016. He had presented with severe back pain and vertebral compression fractures. His initial treatment included RVD for 1-1/2 cycles, following which he was seen at [facility] in [facility] for his further treatment. He then underwent VDT-PACE induction chemotherapy followed by 2 melphalan-based stem cell transplants. The second was administered at a reduced dosage due to C. difficile colitis. He then underwent VDT-PACE consolidation, following which he was determined to be in a stringently defined complete remission. 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 He had initially continued the carfilzomib and dexamethasone, but the dexamethasone was later stopped due to insomnia and the carfilzomib ultimately was stopped as of December 2019. At that point he remained in stringent remission. During that time, he had undergone kyphoplasty at the L2 level and between April 2018 and 2019 he also had been receiving replacement IVIG due to hypogammaglobulinemia and recurrent infections. He is now being followed off treatment at [facility], currently on a 3-month schedule. His other medical illnesses include type 2 diabetes, androgen deficiency, GERD, and B12 deficiency. He also has a history of Port-A-Cath related thrombosis, for which he remains on anticoagulation with apixaban. He has a non-smoker, but he does chew tobacco. His family history is significant in that his mother was treated for lymphoma and several extended family members have been treated for myeloma. He is seen for a scheduled visit. He has been feeling good generally, though recently has been a little more tired. He has limited activity due to his back pain, management of which has been somewhat problematic due to poor tolerance for opiate pain medications. With extended release oxycodone he is able to keep the pain at a manageable level. He is able to do some light work. ECOG score is 1. He has good appetite. He does not have fever, he does have a lot of hot flashes and sweating. That problem did not improve with androgen replacement therapy. He has no shortness of breath, cough, or chest pain. He has no GI complaints other than has bowel function tends to be somewhat inconsistent. He has been voiding more frequently, but bladder function remains adequate. In addition to the back pain, he has had joint pain, particularly in the thumbs. He previously had benefited significantly with local injections. During the past 2 to 3 weeks he has had some headaches, sometimes in the back of the neck and sometimes behind the eyes. He has occasional orthostatic lightheadedness. He has residual neuropathy from the Velcade, mainly with numbness in his toes and to lesser extent in his hands. Recently he has started having shooting pains in his feet. Medications: Acyclovir 1 Tablet (of 400 mg) Oral b.i.d., Ativan 1 Tablet (of 0.5 mg) Oral b.i.d., Cholecalciferol 1 Tablet (of 125 mcg ) Oral daily, Claritin 1 Capsule (of 10 mg) Oral every am, Coreg 1 Tablet (of 3.125 mg) Oral b.i.d., Cyclobenzaprine HCl 1 Tablet (of 10 mg) Oral at bedtime, Eliquis 1 Tablet (of 5 mg) Oral b.i.d., Lomotil Tablet Oral PRN, Magnesium (250 mg) Tablet Oral daily, Melatonin (3 mg) Capsule Oral at bedtime, metFORMIN HCl ER 1 Tablet (of 750 mg) Tablet SR 24 HR Oral b.i.d., oxyCODONE HCl 1 Tablet (of 10 mg) Oral PRN, OxyCONTIN 1 Tablet (of 30 mg) Tablet ER 12 HR Abuse-Deterrent Oral b.i.d., Phenergan 1 Tablet (of 25 mg) Oral PRN, Vitamin C 1 Capsule (of 1000 mg) Oral daily, Zinc 1 Capsule (of 50 mg) Oral daily Allergies: No Known Allergies. Review of Systems: Constitutional - He has been feeling really tired. His activity is limited due to his spine issues. He has good appetite. He has not had fever or night sweating, but he is prone to having a lot of hot flashes/sweating during the daytime. ECOG score is 1, ENMT - He has a little sinus drainage. No mouth sores. No sore throat or difficulty swallowing, Hematologic/Lymphatic - No abnormal bruising or bleeding, Respiratory - No shortness of breath. No cough. No pleuritic pain or hemoptysis, Cardiovascular - No angina pain. No palpitations, Gastrointestinal - No nausea or vomiting. No heartburn or acid reflux. His bowels are inconsistent, as he does tend to have constipation. No blood in the stool or black stools, Genitourinary (M) - No dysuria or hematuria. His urination has been more frequent. No urgency or incontinence, Musculoskeletal - He has chronic back pain. With his pain medication, it is described as a dull ache. It does limit his activity. He also has tendinitis pain at the elbows. He has pain in both thumbs, and they tend to lock up, Integumentary - No skin rash, Neurologic - He has been having a headache for last 2 to 3 weeks, sometimes in the back of the neck and sometimes behind his eyes. He has occasional orthostatic dizziness. He has neuropathy with numbness in both feet and to a lesser extent in his hands. He recently has started having some shooting pains in his feet, Psychiatric - No anxiety or depression. He has some difficulty sleeping. Vital Signs: Performed on Aug 19, 2020 10:33 Height - 70.00 in Weight - 238.4 lbs (LOW) BSA - 2.25 sq.m BMI - 34.21 (HIGH) Temperature - 97.5 F (LOW) Pulse - 92 /min Respiration - 20 /min BP - 117/79 mm(hg) O2 Sat - 96 % Pain - 4 Physical Examination: Constitutional - He looks pretty good generally, but he does have limited mobility, Eyes - Sclerae nonicteric. Conjunctivae clear, ENMT - No lesions noted in the oral cavity, Hematologic/Lymphatic - No cervical, clavicular, or axillary adenopathy, Respiratory - Lungs are clear with good air movement bilaterally, Cardiovascular - Heart rhythm is regular. There is no murmur, gallop, or rub noted, Abdomen - Mildly distended. Liver and spleen are not enlarged. There is no abdominal mass or ascites noted and there is no inguinal adenopathy, Extremities - No edema, Integumentary - No rashes. No suspicious skin lesions noted, Neurologic - He does not appear to have any focal neurologic deficit. Lab/Imaging: Test performed on Aug 19, 2020 11:30 Sodium 136 mmol/L Potassium 3.8 mmol/L Chloride 100 mmol/L CO2 25 mmol/L Anion Gap 14.8 BUN 16 mg/dL Creatinine 0.9 mg/dL Cr Clearance (Est) 136.8400 mL/min eGFR 86.7 mL/min Glucose 245 mg/dL Osmolality - Calculated 291 mOsm/kg Calcium 8.4 mg/dL Protein, Total 5.9 g/dL Albumin 3.9 g/dL Globulin 2.0 g/dL Bilirubin, Total 0.4 mg/dL ALT (SGPT) 16 U/L AST (SGOT) 21 U/L Alkaline Phosphatase 101 IU/L WBC 8.0 10 3/uL RBC 4.75 10 6/uL HGB 14.3 g/dL HCT 43.7 % MCV 92.0 fL MCH 30.1 pg MCHC 32.7 g/dL RDW 12.9 % Platelet Count 270 10 3/cmm MPV 8.7 fL Neutrophils 5.44 10 3/uL Lymphocytes 1.6 10 3/uL Monocytes 0.6 10 3/uL Eosinophils 0.3 10 3/uL Basophils 0.1 10 3/uL Neutrophil % 68.4 % Lymphocyte % 19.6 % Monocyte % 7.4 % Eosinophil % 3.5 % Basophils % 0.6 % NRBC % 0 % Impression: 1. Patient with multiple myeloma, subtype unknown, initially diagnosed in early 2016. He had severe back pain and vertebral compression fractures at diagnosis. 2. His treatment included RVD x 1-1/2 cycles followed by VDT-PACE induction and 2 melphalan-based stem cell transplants. 3. He was then given VDT-PACE consolidation, following which he was determined to be in a stringent complete remission. 4. In September 2017 he began maintenance with carfilzomib, Revlimid, and dexamethasone. Revlimid was stopped as of March 2019 due to cytopenias, dexamethasone was later stopped due to insomnia, and carfilzomib was stopped as of December 2019. His evaluation at that time still showed stringent remission. 5. During that time he underwent L2 kyphoplasty. 6. From April 2018 through 2019 he was given replacement IVIG for hypogammaglobulinemia and recurrent infections. 7. He has chronic back pain associated with vertebral compression fractures. 8. 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 His other medical illnesses include: 9. Type 2 diabetes. 10. Androgen deficiency. 11. GERD. 12. B12 deficiency. 13. He has a history of chronic cath related thrombosis, for which he is on anticoagulation with apixaban. 14. He has a history of C. difficile colitis. Plan: He remains on observation/expectant management for the myeloma. He will continue extended release oxycodone 30 mg every 12 hours for the back pain, as he does have significant limitation in his activity not only due to the back pain but also due to the neuropathy. If his neuropathy pain continues to worsen, we may want to consider trial of therapy with gabapentin. In the meantime, he is being scheduled to see Dr. Rodriges for neurology consultation. He will continue anticoagulation with apixaban as long as the Port-A-Cath is in place. As he has been off carfilzomib for 6 months, he is advised now to stop the acyclovir prophylaxis. Given the interval from his stem cell transplants, he would now be eligible for a shingles vaccine, but specifically Shingrix. He will be returning monthly for port flushes. I will see him again in 3 months, or sooner as needed. Signed By: Peter Honeycutt M.D. <<Signature on File>>
== END 2020-08-19 06:11 | disposition home or self-care (01) ==
LOC: ONCMED 06:12
PROVIDERS: PCP Internal Medicine; Visit Provider Internal Medicine Medical Oncology
DX: C90.01 Multiple myeloma in remission (principal); M48.50XD Collapsed vertebra, not elsewhere classified, site unspecified, subsequent encounter for fracture with routine healing; G62.0 Drug-induced polyneuropathy; T45.1X5D Adverse effect of antineoplastic and immunosuppressive drugs, subsequent encounter; E11.9 Type 2 diabetes mellitus without complications; E29.1 Testicular hypofunction; K21.9 Gastro-esophageal reflux disease without esophagitis; E53.8 Deficiency of other specified B group vitamins; Z79.891 Long term (current) use of opiate analgesic; Z86.718 Personal history of other venous thrombosis and embolism; Z79.01 Long term (current) use of anticoagulants; Z94.84 Stem cells transplant status; Z86.19 Personal history of other infectious and parasitic diseases
CPT/HCPCS: 36591; 80053; 85025; 99214

== ENCOUNTER 2020-09-28 13:57 | Outpatient (CLI) | payer MEDICARE, BC, SELFPAY ==
[2020-09-28 14:43] LABS: Basophils # 0.1 10^3/uL (0.0-0.1); Basophils % 0.7 %; Eosinophils # 0.3 10^3/uL (0.0-0.8); Eosinophils % 3.3 %; Hematocrit 41.5 % (42.0-52.0); Hemoglobin 13.7 g/dL (11.7-16.6); Lymphocytes # 1.5 10^3/uL (0.8-4.8); Lymphocytes % 17.4 %; Mean Corpuscular Hemoglobin 29.8 pg (28.0-34.0); Mean Corpuscular Volume 90.2 fL (80-94); Mean Platelet Volume 8.8 fL (7.4-10.4); Monocytes # 0.7 10^3/uL (0.2-0.9); Monocytes % 7.4 %; Neutrophils # 6.22 10^3/uL (1.8-7.7); Neutrophils % 70.6 %; Nucleated Red Blood Cells % 0 %; Platelet Count 324 10^3/cmm (130-400); Red Cell Distribution Width 13.2 % (12.1-15.1); White Blood Count 8.8 10^3/uL (4.0-10.0)
[2020-09-28 14:58] LABS: Alanine Aminotransferase 15 U/L (0-41); Albumin Level 4.2 g/dL (3.5-5.2); Alkaline Phosphatase 101 IU/L (40-130); Anion Gap 15.5 (5-19); Aspartate Amino Transferase 21 U/L (0-40); Blood Urea Nitrogen 14 mg/dL (6-20); Calcium 9.2 mg/dL (8.5-10.5); Carbon Dioxide 28 mmol/L (22-29); Chloride 99 mmol/L (98-107); Globulin 2.3 g/dL (1.3-4.6); Glomerular Filtration Rate 76.7 mL/min (90-130); Glucose 251 mg/dL (65-115); Osmolality Calculated 295 mOsm/kg (285-295); Potassium 4.5 mmol/L (3.5-5.1); Sodium 138 mmol/L (136-145); Total Bilirubin 0.5 mg/dL (0.15-1.2); Total Protein 6.5 g/dL (6.6-8.7)
== END 2020-09-28 13:58 | disposition home or self-care (01) ==
LOC: ONCMED 14:01
PROVIDERS: PCP Internal Medicine; Visit Provider Internal Medicine Medical Oncology
DX: C90.01 Multiple myeloma in remission (principal)
CPT/HCPCS: 36591; 80053; 85025

== ENCOUNTER 2020-10-29 07:29 | Outpatient (CLI) | payer MEDICARE, BC, SELFPAY ==
[2020-10-29] MEDS: alteplase 1 mg/mL SDV 2 mL 2 MG IV (13:57)
[2020-10-29 14:10] LABS: Basophils # 0.1 10^3/uL (0.0-0.1); Basophils % 0.8 %; Eosinophils # 0.2 10^3/uL (0.0-0.8); Eosinophils % 2.8 %; Hematocrit 43.1 % (42.0-52.0); Hemoglobin 14.3 g/dL (11.7-16.6); Lymphocytes # 1.8 10^3/uL (0.8-4.8); Lymphocytes % 20.7 %; Mean Corpuscular HGB Conc 33.2 g/dL (30.0-36.0); Mean Corpuscular Volume 90.5 fL (80-94); Mean Platelet Volume 8.4 fL (7.4-10.4); Monocytes # 0.6 10^3/uL (0.2-0.9); Monocytes % 7.5 %; Neutrophils # 5.83 10^3/uL (1.8-7.7); Neutrophils % 67.9 %; Nucleated Red Blood Cells % 0 %; Platelet Count 312 10^3/cmm (130-400); Red Blood Count 4.76 10^6/uL (4.1-5.3); Red Cell Distribution Width 13.3 % (12.1-15.1); White Blood Count 8.6 10^3/uL (4.0-10.0)
[2020-10-29 14:55] LABS: Alanine Aminotransferase 16 U/L (0-41); Albumin Level 4.3 g/dL (3.5-5.2); Alkaline Phosphatase 116 IU/L (40-130); Anion Gap 14.1 (5-19); Aspartate Amino Transferase 24 U/L (0-40); Blood Urea Nitrogen 16 mg/dL (6-20); Calcium 9.2 mg/dL (8.5-10.5); Carbon Dioxide 28 mmol/L (22-29); Chloride 96 mmol/L (98-107); Globulin 2.4 g/dL (1.3-4.6); Glomerular Filtration Rate 86.7 mL/min (90-130); Glucose 193 mg/dL (65-115); Osmolality Calculated 284 mOsm/kg (285-295); Potassium 4.1 mmol/L (3.5-5.1); Sodium 134 mmol/L (136-145); Total Bilirubin 0.7 mg/dL (0.15-1.2); Total Protein 6.7 g/dL (6.6-8.7)
[2020-10-29 17:23] LABS: Estmated Average Glucose 206; Hemoglobin A1C 8.8 % (4.0-6.0)
--- NOTE | 2020-11-01 13:18 | ONC FU_ITS ---
Dr. Honeycutt Patient Follow-Up Note Patient: Chris Byrne Unit #: [id number]: [id number] Dicatated By: Peter Honeycutt M.D.Date of Visit:Oct 29, 2020 Onc Med Follow-up/Prog Note Chief Complaint: Myeloma. History of Present Illness: This is a 60-year-old man with multiple myeloma, subtype unknown, currently in remission. His myeloma was diagnosed sometime early in 2016. He had presented with severe back pain and vertebral compression fractures. His initial treatment included RVD for 1-1/2 cycles, following which he was seen at [facility] in [facility] for his further treatment. He then underwent VDT-PACE induction chemotherapy followed by 2 melphalan-based stem cell transplants. The second was administered at a reduced dosage due to C. difficile colitis. He then underwent VDT-PACE consolidation, following which he was determined to be in a stringently defined complete remission. 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 He had initially continued the carfilzomib and dexamethasone, but the dexamethasone was later stopped due to insomnia, and the carfilzomib ultimately was stopped as of December 2019. At that point he remained in stringent remission. During that time, he had undergone kyphoplasty at the L2 level and between April 2018 and 2019 he also had been receiving replacement IVIG due to hypogammaglobulinemia and recurrent infections. He has continued a 3-month schedule at [facility], and he has remained off treatment. His other medical illnesses include type 2 diabetes, androgen deficiency, GERD, and B12 deficiency. He also has a history of Port-A-Cath related thrombosis, for which he remains on anticoagulation with apixaban. He has a non-smoker, but he does chew tobacco. His family history is significant in that his mother was treated for lymphoma and several extended family members have been treated for myeloma. I had seen him initially on 08/19/2020 to assist with his follow-up care locally. Subsequent to that visit, he had stopped his acyclovir prophylaxis, and he received an initial Shingrix vaccination. Within a month he had developed a herpes zoster eruption in the lower abdominal/flank area on the right side. He was treated with full dose acyclovir. He is seen now for a follow-up visit. At the time of my initial visit with him in August I had rated his ECOG score at 1, because he had indicated that he could do some light work. In retrospect, this may have been overestimated, as any work activity he does is just for very short periods and not able to be sustained. He continues to complain that he has no energy. He has to lie down and nap every afternoon. I would rate his ECOG score at 2. His appetite has been OK. His weight is down 5 lbs. He sometimes has hot flashes/sweating. He has shortness of breath, and he is on CPAP at night. He does not have cough, and he does not complain of chest pain. His bowels fluctuate between diarrhea and constipation. He has no other GI or complaints. He has chronic back pain, rated at 4/10 on his pain medication. At at times his pain is much worse, and it does further limit his activity. He also has tendon issues involving his thumbs and elbows. He has numbness in his feet. Medications: Acyclovir 1 Tablet (of 400 mg) Oral b.i.d., Ativan 1 Tablet (of 0.5 mg) Oral b.i.d., Cholecalciferol 1 Tablet (of 125 mcg ) Oral daily, Claritin 1 Capsule (of 10 mg) Oral every am, Coreg 1 Tablet (of 3.125 mg) Oral b.i.d., Cyclobenzaprine HCl 1 Tablet (of 10 mg) Oral at bedtime, Eliquis 1 Tablet (of 5 mg) Oral b.i.d., Lomotil Tablet Oral PRN, Magnesium (250 mg) Tablet Oral daily, Melatonin (3 mg) Capsule Oral at bedtime, metFORMIN HCl ER 1 Tablet (of 750 mg) Tablet SR 24 HR Oral b.i.d., oxyCODONE HCl 1 Tablet (of 10 mg) Oral PRN, OxyCONTIN 1 Tablet (of 30 mg) Tablet ER 12 HR Abuse-Deterrent Oral b.i.d., Phenergan 1 Tablet (of 25 mg) Oral PRN, Vitamin C 1 Capsule (of 1000 mg) Oral daily, Zinc 1 Capsule (of 50 mg) Oral daily Allergies: No Known Allergies. Vital Signs: Performed on Oct 29, 2020 15:19 Height - 70.00 in Weight - 233.4 lbs (LOW) BSA - 2.23 sq.m BMI - 33.49 (HIGH) Temperature - 97.2 F (LOW) Pulse - 87 /min Respiration - 19 /min BP - 145/97 mm(hg) (HIGH) O2 Sat - 99 % Pain - 4 Physical Examination: Constitutional - He has limited mobility, Eyes - Sclerae nonicteric. Conjunctivae clear, ENMT - No lesions noted in the oral cavity, Hematologic/Lymphatic - No cervical, clavicular, or axillary adenopathy, Respiratory - Lungs are clear with good air movement bilaterally, Cardiovascular - Heart rhythm is regular. There is no murmur, gallop, or rub noted, Abdomen - Soft. Liver and spleen are not enlarged. There is no abdominal mass or ascites noted and there is no inguinal adenopathy, Extremities - No edema, Integumentary - There are herpes zoster skin lesions in the right lower abdomen/flank area, they do appear to be in a resolving stage, Neurologic - No focal neurologic deficits noted. Lab/Imaging: Test performed on Oct 29, 2020 13:55 Sodium 134 mmol/L Potassium 4.1 mmol/L Chloride 96 mmol/L Est Avg Glucose (eAG) 206 mg/dL CO2 28 mmol/L Anion Gap 14.1 BUN 16 mg/dL Creatinine 0.9 mg/dL Cr Clearance (Est) 133.97 mL/min eGFR 86.7 mL/min Glucose 193 mg/dL Osmolality - Calculated 284 mOsm/kg Calcium 9.2 mg/dL Protein, Total 6.7 g/dL Albumin 4.3 g/dL Globulin 2.4 g/dL Bilirubin, Total 0.7 mg/dL ALT (SGPT) 16 U/L AST (SGOT) 24 U/L Alkaline Phosphatase 116 IU/L Hemoglobin A1C % 8.8 % WBC 8.6 10 3/uL RBC 4.76 10 6/uL HGB 14.3 g/dL HCT 43.1 % MCV 90.5 fL MCH 30.0 pg MCHC 33.2 g/dL RDW 13.3 % Platelet Count 312 10 3/cmm MPV 8.4 fL Neutrophils 5.83 10 3/uL Lymphocytes 1.8 10 3/uL Monocytes 0.6 10 3/uL Eosinophils 0.2 10 3/uL Basophils 0.1 10 3/uL Neutrophil % 67.9 % Lymphocyte % 20.7 % Monocyte % 7.5 % Eosinophil % 2.8 % Basophils % 0.8 % NRBC % 0 % Historic Problem List: 1. Multiple myeloma, subtype unknown, initially diagnosed in early 2016. He had severe back pain and vertebral compression fractures at diagnosis. 2. His treatment included RVD x 1-1/2 cycles followed by VDT-PACE induction and 2 melphalan-based stem cell transplants. 3. He was then given VDT-PACE consolidation, following which he was determined to be in a stringent complete remission. 4. In September 2017 he began maintenance with carfilzomib, Revlimid, and dexamethasone. Revlimid was stopped as of March 2019 due to cytopenias, dexamethasone was later stopped due to insomnia, and carfilzomib was stopped as of December 2019. His evaluation at that time still showed stringent remission. 5. During that time he underwent L2 kyphoplasty. 6. From April 2018 through 2019 he was given replacement IVIG for hypogammaglobulinemia and recurrent infections. 7. He has chronic back pain associated with vertebral compression fractures. 8. 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 His other medical illnesses include: 9. Type 2 diabetes. 10. Androgen deficiency. 11. GERD. 12. B12 deficiency. 13. He has a history of chronic cath related thrombosis, for which he is on anticoagulation with apixaban. 14. He has a history of C. difficile colitis. Problems Addressed with this Encounter and Plan: 1. Multiple myeloma, subtype unknown, initially diagnosed in early 2016. His myeloma has been in remission following treatment with RVd x 1-1/2 cycles followed by VDT-PACE induction, 2 melphalan-based stem cell transplants, and VDT-PACE consolidation. He had poor tolerance for maintenance treatment with carfilzomib, Revlimid, and dexamethasone, and he is now being followed off treatment. Thus far during follow-up his myeloma has remained in remission, and he continues on observation/expectant management. He comes in monthly for port flushes and lab studies. I will see him again in 3 months. 2. He has multiple vertebral compression fractures associated with the myeloma. He has undergone kyphoplasty at L2. He has chronic back. It is managed at a tolerable level with OxyContin, which will be continued at 30 mg every 12 hours. 3. He had a recent episode of herpes zoster which developed shortly after receiving his initial Shingrix vaccination. It was treated with full dose acyclovir, and it does appear to be resolving. However, he now wishes to resume his acyclovir prophylaxis at 400 mg bid. 4. Due to treatment related neuropathy and to chronic back pain associated with the vertebral compression fractures. In my estimation, he is not capable of sufficient work activity to be employable. He is scheduled to have neurology consultation with Dr. Rodriges. Signed By: Peter Honeycutt M.D. <<Signature on File>>
== END 2020-10-29 07:30 | disposition home or self-care (01) ==
LOC: ONCMED 07:32
PROVIDERS: PCP Internal Medicine; Visit Provider Internal Medicine Medical Oncology
DX: C90.01 Multiple myeloma in remission (principal); G62.0 Drug-induced polyneuropathy; T45.1X5D Adverse effect of antineoplastic and immunosuppressive drugs, subsequent encounter; M84.48XD Pathological fracture, other site, subsequent encounter for fracture with routine healing; B02.9 Zoster without complications; Z94.84 Stem cells transplant status; Z92.21 Personal history of antineoplastic chemotherapy; Z79.891 Long term (current) use of opiate analgesic; Z79.899 Other long term (current) drug therapy
CPT/HCPCS: 36415; 36593; 80053; 83036; 85025; 96374; 99214; J2997

== ENCOUNTER → 2020-11-10 14:48 | Outpatient (BNVA) | payer MEDICARE, BC, SELFPAY | PROVIDERS: PCP Internal Medicine; Referring Provider Internal Medicine Hematology & Oncology; Visit Provider Specialist | DX: E11.42 Type 2 diabetes mellitus with diabetic polyneuropathy (principal); Z79.84 Long term (current) use of oral hypoglycemic drugs; Z85.79 Personal history of other malignant neoplasms of lymphoid, hematopoietic and related tissues; M54.9 Dorsalgia, unspecified; G89.29 Other chronic pain; F17.220 Nicotine dependence, chewing tobacco, uncomplicated | CPT/HCPCS: 99204 ==

== ENCOUNTER → 2020-11-17 07:48 | Outpatient (BNVA) | payer MEDICARE, BC, SELFPAY | PROVIDERS: PCP Internal Medicine; Referring Provider Specialist; Visit Provider Specialist | DX: R20.0 Anesthesia of skin (principal); R20.2 Paresthesia of skin; E13.9 Other specified diabetes mellitus without complications; Z79.84 Long term (current) use of oral hypoglycemic drugs; F17.210 Nicotine dependence, cigarettes, uncomplicated | CPT/HCPCS: 95913 ==

== ENCOUNTER 2020-12-03 10:47 | Outpatient (CLI) | payer MEDICARE, BC, SELFPAY ==
[2020-12-03 12:58] LABS: Immunoglobulin IGA 93 mg/dL (70-400); Immunoglobulin IGG 815 mg/dL (700-1600)
[2020-12-03 13:14] LABS: Immunoglobulin IGM < 25 mg/dL (40-230)
[2020-12-04 05:44] LABS: PROTEIN, TOTAL 6.6 g/dL (6.1-8.1)
[2020-12-04 12:58] LABS: ALPHA 1 GLOBULIN 0.3 g/dL (0.2-0.3); ALPHA 2 GLOBULIN 0.7 g/dL (0.5-0.9); BETA 1 GLOBULIN 0.7 g/dL (0.4-0.6); BETA 2 GLOBULIN 0.3 g/dL (0.2-0.5); GAMMA GLOBULIN 0.7 g/dL (0.8-1.7)
[2020-12-04 14:27] LABS: Beta-2-Microglobulin 1.78 mg/L (< OR = 2.51)
[2020-12-04 16:03] LABS: KAPPA LIGHT CHAIN, FREE, SERUM 14.4 mg/L (3.3-19.4); KAPPA/LAMBDA LIGHT CHAINS FREE 0.98 (0.26-1.65); LAMBDA LIGHT CHAIN, FREE, SERU 14.7 mg/L (5.7-26.3)
== END 2020-12-03 10:48 | disposition home or self-care (01) ==
LOC: ONCMED 10:49
PROVIDERS: PCP Internal Medicine; Visit Provider Internal Medicine Medical Oncology
DX: C90.01 Multiple myeloma in remission (principal)
CPT/HCPCS: 36591; 82232; 82784; 83883; 84155; 84165; 84260

== ENCOUNTER 2020-12-24 06:25 | Outpatient (CLI) | payer MEDICARE, BC, SELFPAY ==
[2020-12-24 12:38] LABS: Basophils # 0.1 10^3/uL (0.0-0.1); Eosinophils # 0.3 10^3/uL (0.0-0.8); Eosinophils % 3.2 %; Hematocrit 41.8 % (42.0-52.0); Lymphocytes # 1.6 10^3/uL (0.8-4.8); Lymphocytes % 19.4 %; Mean Corpuscular HGB Conc 33.5 g/dL (30.0-36.0); Mean Corpuscular Hemoglobin 30.5 pg (28.0-34.0); Mean Corpuscular Volume 91.1 fL (80-94); Mean Platelet Volume 8.9 fL (7.4-10.4); Monocytes # 0.6 10^3/uL (0.2-0.9); Monocytes % 7.6 %; Neutrophils # 5.48 10^3/uL (1.8-7.7); Neutrophils % 68.3 %; Nucleated Red Blood Cells % 0 %; Platelet Count 304 10^3/cmm (130-400); Red Blood Count 4.59 10^6/uL (4.1-5.3); Red Cell Distribution Width 13.9 % (12.1-15.1)
[2020-12-24 13:09] LABS: Immunoglobulin IGA 89 mg/dL (70-400); Immunoglobulin IGG 787 mg/dL (700-1600)
[2020-12-24 13:12] LABS: Alanine Aminotransferase 15 U/L (0-41); Albumin Level 4.2 g/dL (3.5-5.2); Alkaline Phosphatase 106 IU/L (40-130); Anion Gap 12.4 (5-19); Aspartate Amino Transferase 21 U/L (0-40); Blood Urea Nitrogen 11 mg/dL (6-20); Calcium 9.4 mg/dL (8.5-10.5); Carbon Dioxide 27 mmol/L (22-29); Chloride 99 mmol/L (98-107); Globulin 2.5 g/dL (1.3-4.6); Glomerular Filtration Rate 99.3 mL/min (90-130); Glucose 263 mg/dL (65-115); Osmolality Calculated 287 mOsm/kg (285-295); Potassium 4.4 mmol/L (3.5-5.1); Sodium 134 mmol/L (136-145); Total Bilirubin 0.5 mg/dL (0.15-1.2); Total Protein 6.7 g/dL (6.6-8.7)
[2020-12-24 13:25] LABS: Immunoglobulin IGM < 25 mg/dL (40-230)
[2020-12-25 12:33] LABS: ALBUMIN 3.8 g/dL (3.8-4.8); ALPHA 1 GLOBULIN 0.3 g/dL (0.2-0.3); ALPHA 2 GLOBULIN 0.7 g/dL (0.5-0.9); BETA 1 GLOBULIN 0.4 g/dL (0.4-0.6); BETA 2 GLOBULIN 0.2 g/dL (0.2-0.5); GAMMA GLOBULIN 0.6 g/dL (0.8-1.7)
[2020-12-25 14:38] LABS: KAPPA LIGHT CHAIN, FREE, SERUM 14.7 mg/L (3.3-19.4); KAPPA/LAMBDA LIGHT CHAINS FREE 0.97 (0.26-1.65); LAMBDA LIGHT CHAIN, FREE, SERU 15.1 mg/L (5.7-26.3)
[2020-12-25 15:08] LABS: Beta-2-Microglobulin 1.79 mg/L (< OR = 2.51)
== END 2020-12-24 06:26 | disposition home or self-care (01) ==
LOC: ONCMED 06:28
PROVIDERS: PCP Internal Medicine; Visit Provider Internal Medicine Medical Oncology
DX: C90.01 Multiple myeloma in remission (principal); R53.83 Other fatigue
CPT/HCPCS: 36591; 80053; 82232; 82784; 83883; 84155; 84165; 84260; 85025

== ENCOUNTER 2021-01-21 11:20 | Outpatient (CLI) | payer MEDICARE, BC, SELFPAY ==
[2021-01-21 13:08] LABS: Basophils % 0.9 %; Eosinophils % 0.1 %; Hematocrit 39.8 % (42.0-52.0); Hemoglobin 13.1 g/dL (11.7-16.6); Lymphocytes # 1.7 10^3/uL (0.8-4.8); Lymphocytes % 24.5 %; Mean Corpuscular HGB Conc 32.9 g/dL (30.0-36.0); Mean Corpuscular Hemoglobin 30.3 pg (28.0-34.0); Mean Corpuscular Volume 92.1 fL (80-94); Mean Platelet Volume 8.9 fL (7.4-10.4); Monocytes # 0.6 10^3/uL (0.2-0.9); Monocytes % 9.1 %; Neutrophils # 4.47 10^3/uL (1.8-7.7); Neutrophils % 65.3 %; Platelet Count 281 10^3/cmm (130-400); Red Blood Count 4.32 10^6/uL (4.1-5.3); Red Cell Distribution Width 13.9 % (12.1-15.1); White Blood Count 6.9 10^3/uL (4.0-10.0)
[2021-01-21 13:09] LABS: Basophils # 0.1 10^3/uL (0.0-0.1); Nucleated Red Blood Cells % 0 %
[2021-01-21 13:54] LABS: Estmated Average Glucose 209; Hemoglobin A1C 8.9 % (4.0-6.0)
[2021-01-21 13:56] LABS: Alanine Aminotransferase 16 U/L (0-41); Albumin Level 4.1 g/dL (3.5-5.2); Alkaline Phosphatase 103 IU/L (40-130); Anion Gap 14.3 (5-19); Aspartate Amino Transferase 19 U/L (0-40); Blood Urea Nitrogen 17 mg/dL (6-20); Calcium 8.4 mg/dL (8.5-10.5); Carbon Dioxide 27 mmol/L (22-29); Chloride 99 mmol/L (98-107); Globulin 2.4 g/dL (1.3-4.6); Glomerular Filtration Rate 115.8 mL/min (90-130); Glucose 221 mg/dL (65-115); Immunoglobulin IGA 103 mg/dL (70-400); Immunoglobulin IGG 755 mg/dL (700-1600); Immunoglobulin IGM 25 mg/dL (40-230); Osmolality Calculated 290 mOsm/kg (285-295); Potassium 4.3 mmol/L (3.5-5.1); Sodium 136 mmol/L (136-145); Testosterone Total 87.6 ng/dL (193-740); Total Bilirubin 0.5 mg/dL (0.15-1.2); Total Protein 6.5 g/dL (6.6-8.7)
[2021-01-22 12:12] LABS: Beta-2-Microglobulin 1.91 mg/L (< OR = 2.51); KAPPA LIGHT CHAIN, FREE, SERUM 15.9 mg/L (3.3-19.4); LAMBDA LIGHT CHAIN, FREE, SERU 15.9 mg/L (5.7-26.3)
[2021-01-22 15:22] LABS: ALBUMIN 3.8 g/dL (3.8-4.8); ALPHA 1 GLOBULIN 0.3 g/dL (0.2-0.3); ALPHA 2 GLOBULIN 0.7 g/dL (0.5-0.9); BETA 1 GLOBULIN 0.4 g/dL (0.4-0.6); BETA 2 GLOBULIN 0.2 g/dL (0.2-0.5); GAMMA GLOBULIN 0.7 g/dL (0.8-1.7)
--- NOTE | 2021-01-24 08:54 | ONC FU_ITS ---
Dr. Honeycutt Patient Follow-Up Note Patient: Chris Byrne Unit #: [id number]: 1960 Dicatated By: Peter Honeycutt M.D.Date of Visit:Jan 21, 2021 Onc Med Follow-up/Prog Note Chief Complaint: Myeloma. History of Present Illness: This is a 60-year-old man with multiple myeloma, subtype unknown, currently in remission. His myeloma was diagnosed sometime early in 2016. He had presented with severe back pain and vertebral compression fractures. His initial treatment included RVD for 1-1/2 cycles, following which he was seen at [facility] in [facility] for his further treatment. He then underwent VDT-PACE induction chemotherapy followed by 2 melphalan-based stem cell transplants. The second was administered at a reduced dosage due to C. difficile colitis. He then underwent VDT-PACE consolidation, following which he was determined to be in a stringently defined complete remission. 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 He had initially continued the carfilzomib and dexamethasone, but the dexamethasone was later stopped due to insomnia, and the carfilzomib ultimately was stopped as of December 2019. At that point he remained in stringent remission. During that time, he had undergone kyphoplasty at the L2 level and between April 2018 and 2019 he also had been receiving replacement IVIG due to hypogammaglobulinemia and recurrent infections. He has continued a 3-month schedule at [facility], and he has remained off treatment. His other medical illnesses include type 2 diabetes, androgen deficiency, GERD, and B12 deficiency. He also has a history of Port-A-Cath related thrombosis, for which he remains on anticoagulation with apixaban. He has a non-smoker, but he does chew tobacco. His family history is significant in that his mother was treated for lymphoma and several extended family members have been treated for myeloma. I had seen him initially on 08/19/2020 to assist with his follow-up care locally. Subsequent to that visit, he had stopped his acyclovir prophylaxis, and he received an initial Shingrix vaccination. Within a month he had developed a herpes zoster eruption in the lower abdominal/flank area on the right side. He was treated with full dose acyclovir. He is seen for a scheduled follow-up visit. He indicates that he received COVID-19 vaccinations and November and in December. He continues to have very limited activity. He is ambulatory, not capable of any work activity. ECOG score is 2. He has good appetite. He has not had fever. He has been having hot flashes. Those seem to have resolved, but he is now having sweating every evening. He has developed new pain in his right shoulder, to the point that he can hardly raise his right arm. He also has worsening neuropathy pain and other neuropathy symptoms in his feet. He has not had sore mouth or throat. He does not complain of shortness of breath, cough, or chest pain. He occasionally has nausea and he has a little bit of heartburn. Bowel function is inconsistent. He has frequent urination. He has chronic back pain. It is tolerable with medication with his pain generally staying at a rating of 3-5/10. He also is having some pain and stiffness in his hands, mainly at night. He also says that they feel swollen and tight. He occasionally has headache and he has occasional dizziness. He says he is having all kinds of trouble sleeping. Medications: Acyclovir 1 Tablet (of 400 mg) Oral b.i.d., Ativan 1 Tablet (of 0.5 mg) Oral b.i.d., Cholecalciferol 1 Tablet (of 125 mcg ) Oral daily, Claritin 1 Capsule (of 10 mg) Oral every am, Coreg 1 Tablet (of 3.125 mg) Oral b.i.d., Cyclobenzaprine HCl 1 Tablet (of 10 mg) Oral at bedtime, Eliquis 1 Tablet (of 5 mg) Oral b.i.d., Lomotil Tablet Oral PRN, Magnesium (250 mg) Tablet Oral daily, Melatonin (3 mg) Capsule Oral at bedtime, metFORMIN HCl ER 1 Tablet (of 750 mg) Tablet SR 24 HR Oral b.i.d., oxyCODONE HCl 1 Tablet (of 10 mg) Oral PRN, OxyCONTIN 1 Tablet (of 30 mg) Tablet ER 12 HR Abuse-Deterrent Oral b.i.d., Phenergan 1 Tablet (of 25 mg) Oral PRN, Vitamin C 1 Capsule (of 1000 mg) Oral daily, Zinc 1 Capsule (of 50 mg) Oral daily Allergies: No Known Allergies. Vital Signs: Performed on Jan 21, 2021 13:20 Height - 70.00 in Weight - 233.6 lbs (HIGH) BSA - 2.23 sq.m BMI - 33.52 (HIGH) Temperature - 97.2 F (LOW) Pulse - 87 /min Respiration - 18 /min BP - 130/82 mm(hg) O2 Sat - 98 % Pain - 4 Fatigue - 5 Physical Examination: Constitutional - He appears somewhat weak generally, and he has limited mobility, Eyes - Sclerae nonicteric. Conjunctivae clear, ENMT - No lesions noted in the oral cavity, Hematologic/Lymphatic - There is a small posterior cervical node palpable on the left side, measuring approximately 1 cm. There is no other cervical, clavicular, or axillary adenopathy noted, Respiratory - Lungs are clear with good air movement bilaterally, Cardiovascular - Heart rhythm is regular. There is no murmur, gallop, or rub noted, Abdomen - Soft. Liver and spleen are not enlarged. There is no abdominal mass or ascites noted and there is no inguinal adenopathy, Extremities - No edema, Neurologic - No focal neurologic deficits noted. Lab/Imaging: Test performed on Jan 21, 2021 12:15 Sodium 136 mmol/L Testosterone, Total 87.6 ng/dL Potassium 4.3 mmol/L Chloride 99 mmol/L Est Avg Glucose (eAG) 209 mg/dL CO2 27 mmol/L Anion Gap 14.3 BUN 17 mg/dL Creatinine 0.7 mg/dL Cr Clearance (Est) 172.4000 mL/min eGFR 115.8 mL/min Glucose 221 mg/dL Osmolality - Calculated 290 mOsm/kg Calcium 8.4 mg/dL Protein, Total 6.5 g/dL Albumin 4.1 g/dL Globulin 2.4 g/dL Bilirubin, Total 0.5 mg/dL ALT (SGPT) 16 U/L AST (SGOT) 19 U/L Alkaline Phosphatase 103 IU/L Hemoglobin A1C % 8.9 % WBC 6.9 10 3/uL RBC 4.32 10 6/uL HGB 13.1 g/dL HCT 39.8 % MCV 92.1 fL MCH 30.3 pg MCHC 32.9 g/dL RDW 13.9 % Platelet Count 281 10 3/cmm MPV 8.9 fL Neutrophils 4.47 10 3/uL Lymphocytes 1.7 10 3/uL Monocytes 0.6 10 3/uL Eosinophils 0.0 10 3/uL Basophils 0.1 10 3/uL Neutrophil % 65.3 % Lymphocyte % 24.5 % Monocyte % 9.1 % Eosinophil % 0.1 % Basophils % 0.9 % NRBC % 0 % Beta-2 Microglobulin 1.91 mg/L IgG 755 mg/dL Pavo Free Light Chains 15.9 mg/L Lambda Free Light Chains 15.9 mg/L IgA 103 mg/dL Pavo/Lambda Free Ratio 1.00 IgM 25 mg/dL Problem List: 1. Multiple myeloma, subtype unknown, initially diagnosed in early 2016. He had severe back pain and vertebral compression fractures at diagnosis. 2. During treatment he underwent L2 kyphoplasty. 3. From April 2018 through mid 2019 he was given replacement IVIG for hypogammaglobulinemia and recurrent infections. 4. He has chronic back pain associated with vertebral compression fractures. 5. 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 6. Type 2 diabetes. 7. Androgen deficiency. 8. GERD. 10. B12 deficiency. 11. He has a history of chronic cath related thrombosis, for which he is on anticoagulation with apixaban. 12. He has a history of C. difficile colitis. Problems Addressed with this Encounter and Plan: 1. Patient with multiple myeloma, subtype unknown, initially diagnosed in early 2016. His myeloma has been in remission following treatment with RVd x 1-1/2 cycles followed by VDT-PACE induction, 2 melphalan-based stem cell transplants, and VDT-PACE consolidation. He had poor tolerance for maintenance treatment with carfilzomib, Revlimid, and dexamethasone, and he was subsequently transitioned to expectant management. During follow-up he has continued to have very limited activity tolerance, doing part to chronic back pain associated with his vertebral compression fractions in part due to treatment related neuropathy. His overall clinical status, though, remains stable, thus far with no obvious recurrence/progression of the myeloma. He remains on observation/expectant management. He has having new pain in his right shoulder. I think this is unlikely to be myeloma related. As a precaution, I am going to check x-rays of the right shoulder. He will have further evaluation as indicated. I will otherwise just plan follow-up for his myeloma again in 3 months. 2. He has multiple vertebral compression fractures associated with the myeloma. He has undergone kyphoplasty at L2. He has chronic back. It is managed at a tolerable level with OxyContin, which will be continued at 30 mg every 12 hours. 3. He had an episode of herpes zoster which developed shortly after receiving his initial Shingrix vaccination. It was treated with full dose acyclovir, and it does appear to be resolving. He prefers to continue acyclovir prophylaxis at 400 mg bid. 4. He has persistent treatment related neuropathy. He is scheduled to have neurology consultation with Dr. Rodriges. Signed By: Peter Honeycutt M.D. <<Signature on File>>
== END 2021-01-21 11:21 | disposition home or self-care (01) ==
PROVIDERS: PCP Internal Medicine; Visit Provider Internal Medicine Medical Oncology
DX: C90.01 Multiple myeloma in remission (principal); D80.1 Nonfamilial hypogammaglobulinemia; G89.29 Other chronic pain; M54.5 Low back pain; G62.0 Drug-induced polyneuropathy; T45.1X5A Adverse effect of antineoplastic and immunosuppressive drugs, initial encounter; E11.9 Type 2 diabetes mellitus without complications; K21.9 Gastro-esophageal reflux disease without esophagitis; D51.9 Vitamin B12 deficiency anemia, unspecified; Z79.01 Long term (current) use of anticoagulants; Z86.19 Personal history of other infectious and parasitic diseases; Z79.899 Other long term (current) drug therapy
CPT/HCPCS: 36415; 80053; 82232; 82784; 83036; 83883; 84155; 84165; 84260; 84403; 85025; 99214

== ENCOUNTER 2021-01-26 10:20 | Outpatient (CLI) | payer MEDICARE, BC, SELFPAY ==
--- NOTE | 2021-01-26 10:36 | XRR_ITS ---
PROCEDURE INFORMATION: Exam: XR Right Shoulder Exam date and time: 01/26/2021 10:40 AM Age: 60 years old Clinical indication: Pain and condition or disease; Other: Myeloma; Shoulder; Right; Additional info: Myeloma/r shoulder pain TECHNIQUE: Imaging protocol: XR Right shoulder. Views: 2 or more views. COMPARISON: No relevant prior studies available. FINDINGS: Tubes, catheters and devices: Med port catheter. Bones/joints: Osteopenia and degenerative change. No acute bony injury or malalignment. Soft tissues: Unremarkable soft tissues. XR/XR shoulder RT min 2V* [id number] IMPRESSION: Osteopenia and degenerative change.
== END 2021-01-26 10:21 | disposition home or self-care (01) ==
LOC: RAD 10:28
PROVIDERS: PCP Internal Medicine; Visit Provider Internal Medicine Medical Oncology
DX: M25.511 Pain in right shoulder (principal); C90.00 Multiple myeloma not having achieved remission; M85.811 Other specified disorders of bone density and structure, right shoulder
CPT/HCPCS: 73030

== ENCOUNTER 2021-03-01 08:06 | Outpatient (CLI) | payer MEDICARE, BC, SELFPAY ==
[2021-03-01 09:30] LABS: Basophils # 0.1 10^3/uL (0.0-0.1); Eosinophils # 0.3 10^3/uL (0.0-0.8); Eosinophils % 4.3 %; Hematocrit 41.4 % (42.0-52.0); Hemoglobin 13.7 g/dL (11.7-16.6); Lymphocytes # 1.8 10^3/uL (0.8-4.8); Lymphocytes % 25.7 %; Mean Corpuscular HGB Conc 33.1 g/dL (30.0-36.0); Mean Corpuscular Hemoglobin 30.4 pg (28.0-34.0); Mean Platelet Volume 8.9 fL (7.4-10.4); Monocytes # 0.7 10^3/uL (0.2-0.9); Monocytes % 9.7 %; Neutrophils # 4.05 10^3/uL (1.8-7.7); Neutrophils % 58.7 %; Nucleated Red Blood Cells % 0 %; Platelet Count 282 10^3/cmm (130-400); Red Cell Distribution Width 13.2 % (12.1-15.1); White Blood Count 6.9 10^3/uL (4.0-10.0)
[2021-03-01 09:55] LABS: Alanine Aminotransferase 16 U/L (0-41); Albumin Level 4.3 g/dL (3.5-5.2); Alkaline Phosphatase 103 IU/L (40-130); Anion Gap 14.1 (5-19); Aspartate Amino Transferase 22 U/L (0-40); Blood Urea Nitrogen 13 mg/dL (6-20); Calcium 8.7 mg/dL (8.5-10.5); Carbon Dioxide 27 mmol/L (22-29); Chloride 101 mmol/L (98-107); Globulin 2.3 g/dL (1.3-4.6); Glomerular Filtration Rate 99.3 mL/min (90-130); Glucose 152 mg/dL (65-115); Immunoglobulin IGA 93 mg/dL (70-400); Immunoglobulin IGG 760 mg/dL (700-1600); Osmolality Calculated 289 mOsm/kg (285-295); Potassium 4.1 mmol/L (3.5-5.1); Sodium 138 mmol/L (136-145); Total Bilirubin 0.7 mg/dL (0.15-1.2); Total Protein 6.6 g/dL (6.6-8.7)
[2021-03-01 10:19] LABS: Immunoglobulin IGM 17 mg/dL (40-230)
[2021-03-02 07:12] LABS: PROTEIN, TOTAL 6.2 g/dL (6.1-8.1)
[2021-03-02 09:58] LABS: Beta-2-Microglobulin 2.12 mg/L (< OR = 2.51)
[2021-03-02 12:12] LABS: KAPPA LIGHT CHAIN, FREE, SERUM 14.9 mg/L (3.3-19.4); KAPPA/LAMBDA LIGHT CHAINS FREE 0.94 (0.26-1.65); LAMBDA LIGHT CHAIN, FREE, SERU 15.8 mg/L (5.7-26.3)
[2021-03-02 15:33] LABS: ALBUMIN 3.9 g/dL (3.8-4.8); ALPHA 1 GLOBULIN 0.3 g/dL (0.2-0.3); ALPHA 2 GLOBULIN 0.7 g/dL (0.5-0.9); BETA 1 GLOBULIN 0.4 g/dL (0.4-0.6); BETA 2 GLOBULIN 0.2 g/dL (0.2-0.5); GAMMA GLOBULIN 0.7 g/dL (0.8-1.7)
== END 2021-03-01 08:07 | disposition home or self-care (01) ==
LOC: ONCMED 08:09
PROVIDERS: PCP Internal Medicine; Visit Provider Internal Medicine Medical Oncology
DX: C90.01 Multiple myeloma in remission (principal)
CPT/HCPCS: 36591; 80053; 82232; 82784; 83883; 84155; 84165; 84260; 85025

== ENCOUNTER 2021-04-22 12:18 | Outpatient (CLI) | payer MEDICARE, BC, SELFPAY ==
[2021-04-22 13:38] LABS: Basophils # 0.1 10^3/uL (0.0-0.1); Basophils % 0.9 %; Eosinophils # 0.2 10^3/uL (0.0-0.8); Eosinophils % 3.2 %; Hematocrit 41.2 % (42.0-52.0); Hemoglobin 13.7 g/dL (11.7-16.6); Lymphocytes # 1.7 10^3/uL (0.8-4.8); Lymphocytes % 22.2 %; Mean Corpuscular HGB Conc 33.3 g/dL (30.0-36.0); Mean Corpuscular Hemoglobin 30.4 pg (28.0-34.0); Mean Corpuscular Volume 91.4 fL (80-94); Mean Platelet Volume 8.8 fL (7.4-10.4); Monocytes # 0.6 10^3/uL (0.2-0.9); Monocytes % 8.4 %; Neutrophils # 4.83 10^3/uL (1.8-7.7); Neutrophils % 64.8 %; Nucleated Red Blood Cells % 0 %; Platelet Count 286 10^3/cmm (130-400); Red Blood Count 4.51 10^6/uL (4.1-5.3); Red Cell Distribution Width 13.2 % (12.1-15.1); White Blood Count 7.5 10^3/uL (4.0-10.0)
[2021-04-22 14:14] LABS: Estmated Average Glucose 214; Hemoglobin A1C 9.1 % (4.0-6.0)
[2021-04-22 16:21] LABS: Alanine Aminotransferase 16 U/L (0-41); Albumin Level 4.1 g/dL (3.5-5.2); Alkaline Phosphatase 105 IU/L (40-130); Anion Gap 15.2 (5-19); Aspartate Amino Transferase 21 U/L (0-40); Blood Urea Nitrogen 17 mg/dL (6-20); Calcium 8.9 mg/dL (8.5-10.5); Carbon Dioxide 25 mmol/L (22-29); Chloride 100 mmol/L (98-107); Globulin 2.1 g/dL (1.3-4.6); Glomerular Filtration Rate 98.9 mL/min (90-130); Glucose 242 mg/dL (65-115); Immunoglobulin IGA 97 mg/dL (70-400); Immunoglobulin IGG 730 mg/dL (700-1600); Lactate Dehydrogenase 147 U/L (135-225); Osmolality Calculated 292 mOsm/kg (285-295); Potassium 4.2 mmol/L (3.5-5.1); Sodium 136 mmol/L (136-145); Total Bilirubin 0.5 mg/dL (0.15-1.2); Total Protein 6.2 g/dL (6.6-8.7)
[2021-04-22 16:34] LABS: Immunoglobulin IGM < 25 mg/dL (40-230)
[2021-04-23 11:27] LABS: ALBUMIN 3.8 g/dL (3.8-4.8); ALPHA 1 GLOBULIN 0.3 g/dL (0.2-0.3); ALPHA 2 GLOBULIN 0.7 g/dL (0.5-0.9); BETA 1 GLOBULIN 0.4 g/dL (0.4-0.6); BETA 2 GLOBULIN 0.2 g/dL (0.2-0.5); GAMMA GLOBULIN 0.7 g/dL (0.8-1.7); KAPPA LIGHT CHAIN, FREE, SERUM 14.8 mg/L (3.3-19.4); KAPPA/LAMBDA LIGHT CHAINS FREE 0.95 (0.26-1.65); LAMBDA LIGHT CHAIN, FREE, SERU 15.5 mg/L (5.7-26.3)
--- NOTE | 2021-04-25 12:52 | ONC FU_ITS ---
Dr. Honeycutt Patient Follow-Up Note Patient: Chris Byrne Unit #: [id number]: 1960 Dicatated By: Peter Honeycutt M.D.Date of Visit:Apr 22, 2021 Onc Med Follow-up/Prog Note Chief Complaint: Myeloma. History of Present Illness: This is a 61 year-old man with multiple myeloma, subtype unknown, currently in remission. His myeloma was diagnosed sometime early in 2016. He had presented with severe back pain and vertebral compression fractures. His initial treatment included RVD for 1-1/2 cycles, following which he was seen at [facility] in [facility] for his further treatment. He then underwent VDT-PACE induction chemotherapy followed by 2 melphalan-based stem cell transplants. The second was administered at a reduced dosage due to C. difficile colitis. He then underwent VDT-PACE consolidation, following which he was determined to be in a stringently defined complete remission. 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 He had initially continued the carfilzomib and dexamethasone, but the dexamethasone was later stopped due to insomnia, and the carfilzomib ultimately was stopped as of December 2019. At that point he remained in stringent remission. During that time, he had undergone kyphoplasty at the L2 level and between April 2018 and 2019 he also had been receiving replacement IVIG due to hypogammaglobulinemia and recurrent infections. He has continued a 3-month schedule at [facility], and he has remained off treatment. His other medical illnesses include type 2 diabetes, androgen deficiency, GERD, and B12 deficiency. He also has a history of Port-A-Cath related thrombosis, for which he remains on anticoagulation with apixaban. He has a non-smoker, but he does chew tobacco. His family history is significant in that his mother was treated for lymphoma and several extended family members have been treated for myeloma. I had seen him initially on 08/19/2020 to assist with his follow-up care locally. Subsequent to that visit, he had stopped his acyclovir prophylaxis, and he received an initial Shingrix vaccination. Within a month he had developed a herpes zoster eruption in the lower abdominal/flank area on the right side. He was treated with full dose acyclovir. He had follow-up at [facility] on 03/31/2021. He was found to be in stringent complete remission, with his bone marrow MRD negative. His MRI of the spine showed a small local lesion in the cervical spine, which appeared stable and focal lesions within the thoracic spine also appeared stable. There were no focal lesions noted in the lumbar spine. Mild compressions at L4 and L5 were unchanged. There is no change in the appearance of the vertebroplasty at the L2 fracture site. MRI of the pelvis showed stable lesions. There is no evidence of avascular necrosis. He is seen for a scheduled follow-up visit. He continues to complain that his energy is not good and he has very limited activity. His ECOG score is 2. He has good appetite. He has not had fever. He has episodes of profuse sweating, mainly in the daytime and evening. He has no shortness of breath, cough, or chest pain. He has a little bit of heartburn and he has intermittent diarrhea alternating with constipation. He reports having frequent urination. He continues to have back pain, which significantly limits his activity. He has been having pain in his right shoulder, and he has limited movement at that joint. He has ongoing neuropathy symptoms with numbness in his feet and with shooting pains in both great toes. Medications: Acyclovir 1 Tablet (of 400 mg) Oral b.i.d., Ativan 1 Tablet (of 0.5 mg) Oral b.i.d., Cholecalciferol 1 Tablet (of 125 mcg ) Oral daily, Claritin 1 Capsule (of 10 mg) Oral every am, Coreg 1 Tablet (of 3.125 mg) Oral b.i.d., Cyclobenzaprine HCl 1 Tablet (of 10 mg) Oral at bedtime, Eliquis 1 Tablet (of 5 mg) Oral b.i.d., Lomotil Tablet Oral PRN, Magnesium (250 mg) Tablet Oral daily, Melatonin (3 mg) Capsule Oral at bedtime, metFORMIN HCl ER 1 Tablet (of 750 mg) Tablet SR 24 HR Oral b.i.d., oxyCODONE HCl 1 Tablet (of 10 mg) Oral PRN, OxyCONTIN 1 Tablet (of 30 mg) Tablet ER 12 HR Abuse-Deterrent Oral b.i.d., Phenergan 1 Tablet (of 25 mg) Oral PRN, Vitamin C 1 Capsule (of 1000 mg) Oral daily, Zinc 1 Capsule (of 50 mg) Oral daily Allergies: No Known Allergies. Vital Signs: Performed on Apr 22, 2021 14:13 Height - 70.00 in Weight - 233.6 lbs BSA - 2.23 sq.m BMI - 33.52 (HIGH) Temperature - 96.8 F (LOW) Pulse - 93 /min Respiration - 18 /min BP - 123/82 mm(hg) O2 Sat - 96 % Pain - 5 Fatigue - 6 Physical Examination: Constitutional - He appears somewhat weak generally. He has limited mobility, Eyes - Sclerae nonicteric. Conjunctivae clear, ENMT - No lesions noted in the oral cavity, Hematologic/Lymphatic - No cervical, clavicular, or axillary adenopathy, Respiratory - Lungs are clear with good air movement bilaterally, Cardiovascular - Heart rhythm is regular. There is no murmur, gallop, or rub noted, Abdomen - Moderately distended. Liver and spleen are not enlarged. There is no abdominal mass or ascites noted and there is no inguinal adenopathy, Extremities - No edema. There is limited range of motion at the right shoulder joint. He is not able to raise the right arm above the horizontal level, Neurologic - No focal neurologic deficits noted. Lab/Imaging: Test performed on Apr 22, 2021 12:50 LDH (Total) 147 U/L Sodium 136 mmol/L Potassium 4.2 mmol/L Chloride 100 mmol/L Est Avg Glucose (eAG) 214 mg/dL CO2 25 mmol/L Anion Gap 15.2 BUN 17 mg/dL Creatinine 0.8 mg/dL Cr Clearance (Est) 149.0100 mL/min eGFR 98.9 mL/min Glucose 242 mg/dL Osmolality - Calculated 292 mOsm/kg Calcium 8.9 mg/dL Protein, Total 6.2 g/dL Albumin 4.1 g/dL Globulin 2.1 g/dL Bilirubin, Total 0.5 mg/dL ALT (SGPT) 16 U/L AST (SGOT) 21 U/L Alkaline Phosphatase 105 IU/L Hemoglobin A1C % 9.1 % WBC 7.5 10 3/uL RBC 4.51 10 6/uL HGB 13.7 g/dL HCT 41.2 % MCV 91.4 fL MCH 30.4 pg MCHC 33.3 g/dL RDW 13.2 % Platelet Count 286 10 3/cmm MPV 8.8 fL Neutrophils 4.83 10 3/uL Lymphocytes 1.7 10 3/uL Monocytes 0.6 10 3/uL Eosinophils 0.2 10 3/uL Basophils 0.1 10 3/uL Neutrophil % 64.8 % Lymphocyte % 22.2 % Monocyte % 8.4 % Eosinophil % 3.2 % Basophils % 0.9 % NRBC % 0 % IgG 730 mg/dL Tina Free Light Chains 14.8 mg/L Lambda Free Light Chains 15.5 mg/L IgA 97 mg/dL Tina/Lambda Free Ratio 0.95 IgM < 25 mg/dL Problem List: 1. Multiple myeloma, subtype unknown, initially diagnosed in early 2016. He had severe back pain and vertebral compression fractures at diagnosis. 2. During treatment he underwent L2 kyphoplasty. 3. From April 2018 through mid 2019 he was given replacement IVIG for hypogammaglobulinemia and recurrent infections. 4. He has chronic back pain associated with vertebral compression fractures. 5. 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 6. Type 2 diabetes. 7. Androgen deficiency. 8. GERD. 10. B12 deficiency. 11. He has a history of chronic cath related thrombosis, for which he is on anticoagulation with apixaban. 12. He has a history of C. difficile colitis. Problems Addressed with this Encounter and Plan: 1. Patient with multiple myeloma, subtype unknown, initially diagnosed in early 2016. His myeloma has been in remission following treatment with RVd x 1-1/2 cycles followed by VDT-PACE induction, 2 melphalan-based stem cell transplants, and VDT-PACE consolidation. He had poor tolerance for maintenance treatment with carfilzomib, Revlimid, and dexamethasone, and he was subsequently transitioned to expectant management. During follow-up he has continued to have very limited activity, mainly due to chronic back pain associated with his vertebral compression fractions. He also has ongoing problems associated with treatment related neuropathy. His overall clinical status appears stable. His recent evaluation at [facility] showed continued remission with MRD negative bone marrow. He will return for lab studies and port flushes monthly. He will be scheduled for a follow-up visit in 3 months. 2. He has multiple vertebral compression fractures associated with the myeloma. He has undergone kyphoplasty at L2. He has chronic back. It is managed at a tolerable level with OxyContin, which will be continued at 30 mg every 12 hours. He also takes 10 mg immediate release oxycodone for breakthrough pain on an occasional basis. 3. He has persistent pain and limited range of motion at the right shoulder joint. He will now be scheduled for MRI of the right shoulder. He will have further evaluation as indicated. Signed By: Peter Honeycutt M.D. <<Signature on File>>
== END 2021-04-22 12:19 | disposition home or self-care (01) ==
LOC: ONCMED 12:21
PROVIDERS: PCP Internal Medicine; Visit Provider Internal Medicine Medical Oncology
DX: C90.01 Multiple myeloma in remission (principal); G89.29 Other chronic pain; M54.89 Other dorsalgia; G62.0 Drug-induced polyneuropathy; T45.1X5A Adverse effect of antineoplastic and immunosuppressive drugs, initial encounter; E11.9 Type 2 diabetes mellitus without complications; K21.9 Gastro-esophageal reflux disease without esophagitis; E53.8 Deficiency of other specified B group vitamins; Z92.21 Personal history of antineoplastic chemotherapy; Z79.899 Other long term (current) drug therapy
CPT/HCPCS: 36415; 36591; 80053; 82784; 83036; 83615; 83883; 84155; 84165; 85025; 99214

== ENCOUNTER 2021-05-06 08:12 | Outpatient (CLI) | payer MEDICARE, BC, SELFPAY ==
--- NOTE | 2021-05-06 08:45 | MR_ITS ---
WS: [id number] MRI RIGHT SHOULDER WITHOUT AND WITH GADOLINIUM. TECHNIQUE: Sagittal T2, coronal T1, T2 and proton density imaging. Axial gradient PDE imaging. Post g adolinium imaging was obtained. CLINICAL INFORMATION: MYELOMA;RIGHT SHOULDER PAIN COMPARISON: None. FINDINGS: Moderate degenerative arthritis at the AC joint with mild downsloping acromion. Subacromial spurring. Tendinopathy involving the distal supraspinatus. Tiny insertional tear supraspinatus. Tendinopathy i nfraspinatus with tiny insertional tear. Normal teres minor. Normal subscapularis. Normal biceps tend on in the bicipital groove. Normal biceps labral anchor. Glenoid labrum appears grossly normal. Patchy bone marrow signal within the humerus consistent with treatment-related changes. No evidence o f focal lesion or metastatic disease. MR/MR shoulder RT wo/w con [id number] IMPRESSION: 1. No evidence of metastatic bony lesion. 2. Moderate degenerative arthritis AC joint with edema and synovial thickening . Small amount of fluid in the AC joint. 3. Tendinopathy distal supraspinatus and infraspinatus with tiny insertional t ears. 4. Normal biceps tendon in the bicipital groove. 5. No other acute findings.
[2021-05-06] MEDS: gadobenate dimeglumine 20 mL vial IV (09:31)
== END 2021-05-06 08:13 | disposition home or self-care (01) ==
LOC: RADSHAW 08:16
PROVIDERS: PCP Internal Medicine; Visit Provider Internal Medicine Medical Oncology
DX: C90.00 Multiple myeloma not having achieved remission (principal); M19.011 Primary osteoarthritis, right shoulder
CPT/HCPCS: 73223; A9577

== ENCOUNTER → 2021-05-11 13:18 | Outpatient (BNVA) | payer MEDICARE, BC, SELFPAY | PROVIDERS: PCP Internal Medicine; Visit Provider Specialist | DX: E11.42 Type 2 diabetes mellitus with diabetic polyneuropathy (principal); Z79.4 Long term (current) use of insulin; Z85.79 Personal history of other malignant neoplasms of lymphoid, hematopoietic and related tissues; Z92.21 Personal history of antineoplastic chemotherapy | CPT/HCPCS: 99214 ==

== ENCOUNTER 2021-05-21 06:14 | Outpatient (CLI) | payer MEDICARE, BC, SELFPAY | END 2021-05-21 06:15 | disposition home or self-care (01) | PROVIDERS: PCP Internal Medicine; Visit Provider Internal Medicine Medical Oncology | DX: Z45.2 Encounter for adjustment and management of vascular access device (principal) | CPT/HCPCS: 96523 ==

== ENCOUNTER 2021-06-15 06:00 | Outpatient (RCR) | payer MEDICARE, BC, SELFPAY | END 2021-06-15 23:59 | disposition home or self-care (01) | LOC: TPT 06:00 | PROVIDERS: PCP Internal Medicine; Referring Provider Orthopaedic Surgery; Visit Provider Orthopaedic Surgery | DX: M75.01 Adhesive capsulitis of right shoulder (principal) | CPT/HCPCS: 97110; 97162 ==

== ENCOUNTER 2021-06-16 06:00 | Outpatient (RCR) | payer MEDICARE, BC, SELFPAY | END 2021-07-15 23:59 | disposition home or self-care (01) | LOC: TPT 06:00 | PROVIDERS: PCP Internal Medicine; Referring Provider Orthopaedic Surgery; Visit Provider Orthopaedic Surgery | DX: M75.01 Adhesive capsulitis of right shoulder (principal) | CPT/HCPCS: 97110; 97140; 97164 ==

== ENCOUNTER 2021-06-25 09:02 | Outpatient (CLI) | payer MEDICARE, BC, SELFPAY ==
[2021-06-25 10:15] LABS: Basophils # 0.1 10^3/uL (0.0-0.1); Eosinophils # 0.2 10^3/uL (0.0-0.8); Eosinophils % 2.6 %; Hematocrit 39.8 % (42.0-52.0); Hemoglobin 13.2 g/dL (11.7-16.6); Lymphocytes # 1.9 10^3/uL (0.8-4.8); Lymphocytes % 31.5 %; Mean Corpuscular HGB Conc 33.2 g/dL (30.0-36.0); Mean Corpuscular Hemoglobin 30.4 pg (28.0-34.0); Mean Corpuscular Volume 91.7 fl (80-94); Mean Platelet Volume 8.7 fL (7.4-10.4); Monocytes # 0.6 10^3/uL (0.2-0.9); Monocytes % 9.9 %; Neutrophils # 3.31 10^3/uL (1.8-7.7); Neutrophils % 54.7 %; Nucleated Red Blood Cells % 0 %; Platelet Count 272 10^3/cmm (130-400); Red Blood Count 4.34 10^6/uL (4.1-5.3); Red Cell Distribution Width 13.4 % (12.1-15.1); White Blood Count 6.1 10^3/uL (4.0-10.0)
[2021-06-25 10:50] LABS: Alanine Aminotransferase 14 U/L (0-41); Albumin Level 4.1 g/dL (3.5-5.2); Alkaline Phosphatase 87 IU/L (40-130); Anion Gap 13.1 (5-19); Aspartate Amino Transferase 21 U/L (0-40); Blood Urea Nitrogen 12 mg/dL (6-20); Calcium 8.4 mg/dL (8.5-10.5); Carbon Dioxide 26 mmol/L (22-29); Chloride 102 mmol/L (98-107); Globulin 2.4 g/dL (1.3-4.6); Glomerular Filtration Rate 115.4 mL/min (90-130); Glucose 110 mg/dL (65-115); Immunoglobulin IGA 100 mg/dL (70-400); Immunoglobulin IGG 726 mg/dL (700-1600); Lactate Dehydrogenase 130 U/L (135-225); Osmolality Calculated 284 mOsm/kg (285-295); Potassium 4.1 mmol/L (3.5-5.1); Sodium 137 mmol/L (136-145); Total Bilirubin 0.4 mg/dL (0.15-1.2); Total Protein 6.5 g/dL (6.6-8.7)
[2021-06-25 11:10] LABS: Immunoglobulin IGM 21 mg/dL (40-230)
[2021-06-26 08:28] LABS: PROTEIN, TOTAL 6.1 g/dL (6.1-8.1)
[2021-06-28 13:43] LABS: LAMBDA LIGHT CHAIN, FREE, SERU 16.4 mg/L (5.7-26.3)
[2021-06-28 14:32] LABS: ALBUMIN 3.9 g/dL (3.8-4.8); ALPHA 1 GLOBULIN 0.3 g/dL (0.2-0.3); ALPHA 2 GLOBULIN 0.6 g/dL (0.5-0.9); BETA 1 GLOBULIN 0.4 g/dL (0.4-0.6); BETA 2 GLOBULIN 0.2 g/dL (0.2-0.5); GAMMA GLOBULIN 0.7 g/dL (0.8-1.7)
== END 2021-06-25 09:03 | disposition home or self-care (01) ==
LOC: ONCMED 09:05
PROVIDERS: PCP Internal Medicine; Visit Provider Internal Medicine Medical Oncology
DX: C90.00 Multiple myeloma not having achieved remission (principal)
CPT/HCPCS: 36415; 80053; 82784; 83615; 83883; 84155; 84165; 85025

== ENCOUNTER 2021-08-02 10:52 | Outpatient (CLI) | payer MEDICARE, BC, SELFPAY ==
[2021-08-02 12:06] LABS: Basophils # 0.1 10^3/uL (0.0-0.1); Basophils % 0.7 %; Eosinophils # 0.2 10^3/uL (0.0-0.8); Eosinophils % 3.3 %; Hematocrit 41.3 % (42.0-52.0); Hemoglobin 13.4 g/dL (11.7-16.6); Lymphocytes # 1.4 10^3/uL (0.8-4.8); Lymphocytes % 21.4 %; Mean Corpuscular HGB Conc 32.4 g/dL (30.0-36.0); Mean Corpuscular Hemoglobin 29.8 pg (28.0-34.0); Mean Platelet Volume 8.8 fL (7.4-10.4); Monocytes # 0.6 10^3/uL (0.2-0.9); Monocytes % 9.4 %; Neutrophils # 4.32 10^3/uL (1.8-7.7); Neutrophils % 64.6 %; Nucleated Red Blood Cells % 0 %; Platelet Count 298 10^3/cmm (130-400); Red Blood Count 4.49 10^6/uL (4.1-5.3); Red Cell Distribution Width 13.7 % (12.1-15.1); White Blood Count 6.7 10^3/uL (4.0-10.0)
[2021-08-02 12:37] LABS: Alanine Aminotransferase 20 U/L (0-41); Albumin Level 3.9 g/dL (3.5-5.2); Alkaline Phosphatase 80 IU/L (40-130); Anion Gap 13.2 (5-19); Aspartate Amino Transferase 21 U/L (0-40); Blood Urea Nitrogen 13 mg/dL (6-20); Calcium 8.6 mg/dL (8.5-10.5); Carbon Dioxide 25 mmol/L (22-29); Chloride 105 mmol/L (98-107); Globulin 2.2 g/dL (1.3-4.6); Glomerular Filtration Rate 98.9 mL/min (90-130); Glucose 176 mg/dL (65-115); Osmolality Calculated 292 mOsm/kg (285-295); Potassium 4.2 mmol/L (3.5-5.1); Sodium 139 mmol/L (136-145); Total Bilirubin 0.4 mg/dL (0.15-1.2); Total Protein 6.1 g/dL (6.6-8.7)
== END 2021-08-02 10:53 | disposition home or self-care (01) ==
PROVIDERS: Internal Medicine Hematology & Oncology; PCP Internal Medicine; Visit Provider Internal Medicine Medical Oncology
DX: C90.01 Multiple myeloma in remission (principal); D80.1 Nonfamilial hypogammaglobulinemia; Z79.899 Other long term (current) drug therapy
CPT/HCPCS: 36591; 80053; 85025

== ENCOUNTER → 2021-09-06 12:21 | Outpatient (BNVA) | payer MEDICARE, BC, SELFPAY | PROVIDERS: PCP Internal Medicine; Visit Provider Specialist | DX: E11.42 Type 2 diabetes mellitus with diabetic polyneuropathy (principal); Z79.84 Long term (current) use of oral hypoglycemic drugs; G31.84 Mild cognitive impairment of uncertain or unknown etiology; Z92.21 Personal history of antineoplastic chemotherapy | CPT/HCPCS: 99213; 99214 ==

== ENCOUNTER 2021-09-20 11:33 | Outpatient (CLI) | payer MEDICARE, BC, SELFPAY | END 2021-09-20 11:34 | disposition home or self-care (01) | LOC: ONCMED 11:35 | PROVIDERS: PCP Internal Medicine; Visit Provider Internal Medicine Medical Oncology | DX: Z45.2 Encounter for adjustment and management of vascular access device (principal) | CPT/HCPCS: 96523 ==

== ENCOUNTER 2021-10-25 13:39 | Outpatient (CLI) | payer MEDICARE, BC, SELFPAY ==
[2021-10-25 14:29] LABS: Basophils # 0.1 10^3/uL (0.0-0.1); Basophils % 1.2 %; Eosinophils # 0.2 10^3/uL (0.0-0.8); Eosinophils % 2.9 %; Hematocrit 39.8 % (42.0-52.0); Hemoglobin 13.2 g/dL (11.7-16.6); Lymphocytes # 1.6 10^3/uL (0.8-4.8); Lymphocytes % 23.9 %; Mean Corpuscular HGB Conc 33.2 g/dL (30.0-36.0); Mean Corpuscular Hemoglobin 30.1 pg (28.0-34.0); Mean Corpuscular Volume 90.9 fl (80-94); Mean Platelet Volume 8.6 fL (7.4-10.4); Monocytes # 0.5 10^3/uL (0.2-0.9); Monocytes % 7.2 %; Neutrophils # 4.38 10^3/uL (1.8-7.7); Neutrophils % 64.5 %; Nucleated Red Blood Cells % 0 %; Platelet Count 301 10^3/cmm (130-400); Red Blood Count 4.38 10^6/uL (4.1-5.3); Red Cell Distribution Width 13.9 % (12.1-15.1); White Blood Count 6.8 10^3/uL (4.0-10.0)
[2021-10-25 14:51] LABS: Alanine Aminotransferase 14 U/L (0-41); Albumin Level 4.2 g/dL (3.5-5.2); Alkaline Phosphatase 98 IU/L (40-130); Anion Gap 14.6 (5-19); Aspartate Amino Transferase 18 U/L (0-40); Blood Urea Nitrogen 14 mg/dL (6-20); Calcium 8.8 mg/dL (8.5-10.5); Carbon Dioxide 27 mmol/L (22-29); Chloride 97 mmol/L (98-107); Globulin 2.2 g/dL (1.3-4.6); Glomerular Filtration Rate 115.4 mL/min (90-130); Glucose 241 mg/dL (65-115); Immunoglobulin IGA 108 mg/dL (70-400); Immunoglobulin IGG 1001 mg/dL (700-1600); Immunoglobulin IGM 30 mg/dL (40-230); Lactate Dehydrogenase 127 U/L (135-225); Osmolality Calculated 286 mOsm/kg (285-295); Potassium 4.6 mmol/L (3.5-5.1); Sodium 134 mmol/L (136-145); Total Bilirubin 0.4 mg/dL (0.15-1.2); Total Protein 6.4 g/dL (6.6-8.7)
[2021-10-25 15:10] LABS: Vitamin B12 352 pg/mL (232-1245)
[2021-10-25 15:13] LABS: Estmated Average Glucose 214; Hemoglobin A1C 9.1 % (4.0-6.0)
[2021-10-25 15:16] LABS: Folate Level > 20.0 ng/mL (4.5-32.2)
--- NOTE | 2021-10-26 08:00 | ONC FU_ITS ---
Dr. Honeycutt Patient Follow-Up Note Patient: Chris Byrne Unit #: [id number]: 1960 Dicatated By: Peter Honeycutt M.D.Date of Visit:Oct 25, 2021 Onc Med Follow-up/Prog Note Chief Complaint: Myeloma. History of Present Illness: This is a 61 year-old man with multiple myeloma, subtype unknown, currently in remission. His myeloma was diagnosed sometime early in 2016. He had presented with severe back pain and vertebral compression fractures. His initial treatment included RVD for 1-1/2 cycles, following which he was seen at [facility] in [facility] for his further treatment. He then underwent VDT-PACE induction chemotherapy followed by 2 melphalan-based stem cell transplants. The second was administered at a reduced dosage due to C. difficile colitis. He then underwent VDT-PACE consolidation, following which he was determined to be in a stringently defined complete remission. 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 He had initially continued the carfilzomib and dexamethasone, but the dexamethasone was later stopped due to insomnia, and the carfilzomib ultimately was stopped as of December 2019. At that point he remained in stringent remission. During that time, he had undergone kyphoplasty at the L2 level, and between April 2018 and 2019 he also had been receiving replacement IVIG due to hypogammaglobulinemia and recurrent infections. He continued a 3-month followup schedule at [facility]. I had seen him initially on 08/19/2020 to assist with his follow-up care locally. His further clinical course was complicated by development of a herpes zoster eruption in the lower abdominal/flank area on the right side. He was treated with full dose acyclovir. He had follow-up at [facility] on 03/31/2021. He was found to be in stringent complete remission, with his bone marrow MRD negative. His MRI of the spine showed a small local lesion in the cervical spine, which appeared stable and focal lesions within the thoracic spine also appeared stable. There were no focal lesions noted in the lumbar spine. Mild compressions at L4 and L5 were unchanged. There was no change in the appearance of the vertebroplasty at the L2 fracture site. MRI of the pelvis showed stable lesions. There was no evidence of avascular necrosis. He continued expectant management for the myeloma. His other medical illnesses include type 2 diabetes, androgen deficiency, GERD, and B12 deficiency. He also has a history of Port-A-Cath related thrombosis, for which he has been on anticoagulation with apixaban. He has a non-smoker, but he does chew tobacco. His family history is significant in that his mother was treated for lymphoma and several extended family members have been treated for myeloma. INTERIM HISTORY: He had scheduled follow-up at [facility] on 08/30/2021. On evaluation there is no evidence of M protein in the serum or urine and his bone marrow showed no evidence for atypical plasma cells, either morphologically or by MRD flow test. His imaging studies showed stable appearing chronic compressions of the thoracic and lumbar spine. There were no lytic bone lesions identified and there was no evidence of avascular necrosis. He was felt to qualify for stringent remission. He was recommended to continue laboratory monitoring every 2 months and he was scheduled to return there for follow-up at a 6-month interval. He is seen for a follow-up visit. He has been feeling pretty good generally, though he continues to have limited activity due to his chronic back issues. He is not able to perform any kind of work activity. ECOG score is 2. He has good appetite. He has not had fever. He does have sweating off and on. He has allergy related sinus symptoms. He has not had sore mouth or throat. He does not complain of cough, and he has not been having shortness of breath or chest pain. He does not have nausea or acid reflux symptoms. He takes stool softeners regularly for constipation, but he also has diarrhea every couple of weeks or so. Bladder function remains adequate, though urination has been a little more frequent. He has chronic back pain. It is tolerable with his pain medication. He does not complain of headache. He occasionally has a little bit of dizziness. He has ongoing problems with neuropathy in his hands and feet. He complains that he has all kinds of trouble sleeping despite lorazepam 0.5 mg twice a day and taking melatonin and Flexeril at bedtime. Medications: Acyclovir 1 Tablet (of 400 mg) Oral b.i.d., Ativan 1 Tablet (of 0.5 mg) Oral b.i.d., Cholecalciferol 1 Tablet (of 125 mcg ) Oral daily, Claritin 1 Capsule (of 10 mg) Oral every am, Coreg 1 Tablet (of 3.125 mg) Oral b.i.d., Cyclobenzaprine HCl 1 Tablet (of 10 mg) Oral at bedtime, Eliquis 1 Tablet (of 5 mg) Oral b.i.d., Lomotil Tablet Oral PRN, Magnesium (250 mg) Tablet Oral daily, Melatonin (3 mg) Capsule Oral at bedtime, metFORMIN HCl ER 1 Tablet (of 750 mg) Tablet SR 24 HR Oral b.i.d., oxyCODONE HCl 1 Tablet (of 10 mg) Oral PRN, OxyCONTIN 1 Tablet (of 30 mg) Tablet ER 12 HR Abuse-Deterrent Oral b.i.d., Phenergan 1 Tablet (of 25 mg) Oral PRN, Vitamin C 1 Capsule (of 1000 mg) Oral daily, Zinc 1 Capsule (of 50 mg) Oral daily Allergies: No Known Allergies. Vital Signs: Performed on Oct 25, 2021 14:57 Height - 70.00 in Weight - 242.0 lbs (HIGH) BSA - 2.26 sq.m BMI - 34.72 (HIGH) Temperature - 98.3 F (LOW) Pulse - 86 /min Respiration - 19 /min BP - 130/86 mm(hg) O2 Sat - 97 % Pain - 4 Fatigue - 2 Physical Examination: Constitutional - He has limited mobility, Eyes - Sclerae nonicteric. Conjunctivae clear, ENMT - No lesions noted in the oral cavity, Hematologic/Lymphatic - No cervical, clavicular, or axillary adenopathy, Respiratory - Lungs are clear with good air movement bilaterally, Cardiovascular - Heart rhythm is regular. There is no murmur, gallop, or rub noted, Abdomen - Moderately distended. Liver and spleen are not enlarged. There is no abdominal mass or ascites noted and there is no inguinal adenopathy, Extremities - No edema, Neurologic - He does not appear to have any focal neurologic deficit. Lab/Imaging: Test performed on Oct 25, 2021 14:10 Folate, Serum > 20.0 ng/mL LDH (Total) 127 U/L Sodium 134 mmol/L Vitamin B12 352 pg/mL Potassium 4.6 mmol/L Chloride 97 mmol/L CO2 27 mmol/L Anion Gap 14.6 BUN 14 mg/dL Creatinine 0.7 mg/dL Cr Clearance (Est) 176.42 mL/min eGFR 115.4 mL/min Glucose 241 mg/dL Osmolality - Calculated 286 mOsm/kg Calcium 8.8 mg/dL Protein, Total 6.4 g/dL Albumin 4.2 g/dL Globulin 2.2 g/dL Bilirubin, Total 0.4 mg/dL ALT (SGPT) 14 U/L AST (SGOT) 18 U/L Alkaline Phosphatase 98 IU/L WBC 6.8 10 3/uL RBC 4.38 10 6/uL HGB 13.2 g/dL HCT 39.8 % MCV 90.9 fl MCH 30.1 pg MCHC 33.2 g/dL RDW 13.9 % Platelet Count 301 10 3/cmm MPV 8.6 fL Neutrophils 4.38 10 3/uL Lymphocytes 1.6 10 3/uL Monocytes 0.5 10 3/uL Eosinophils 0.2 10 3/uL Basophils 0.1 10 3/uL Neutrophil % 64.5 % Lymphocyte % 23.9 % Monocyte % 7.2 % Eosinophil % 2.9 % Basophils % 1.2 % NRBC % 0 % IgA 108 mg/dL Problem List: 1. Multiple myeloma, subtype unknown, initially diagnosed in early 2017. He had severe back pain and vertebral compression fractures at diagnosis. 2. During treatment he underwent L2 kyphoplasty. 3. From April 2018 through mid 2019 he was given replacement IVIG for hypogammaglobulinemia and recurrent infections. 4. He has chronic back pain associated with vertebral compression fractures. 5. 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 6. Type 2 diabetes. 7. Androgen deficiency. 8. GERD. 10. B12 deficiency. 11. He has a history of chronic cath related thrombosis, for which he is on anticoagulation with apixaban. 12. He has a history of C. difficile colitis. Problems Addressed with this Encounter and Plan: 1. Patient with multiple myeloma, subtype unknown, initially diagnosed in early 2016. His myeloma has been in remission following treatment with RVd x 1-1/2 cycles followed by VDT-PACE induction, 2 melphalan-based stem cell transplants, and VDT-PACE consolidation. He had poor tolerance for maintenance treatment with carfilzomib, Revlimid, and dexamethasone, and he was subsequently transitioned to expectant management. During follow-up he has continued to have very limited activity, mainly due to chronic back pain associated with his vertebral compression fractions. He also has ongoing problems associated with treatment related neuropathy. His overall clinical status appears stable. His evaluation at [facility] in August 2011 showed continued stringent remission with MRD negative bone marrow. He will return for port flushes monthly and he will continue his laboring monitoring now at 2-month intervals. He will be scheduled for a follow-up visit in 2 months. 2. He has multiple vertebral compression fractures associated with the myeloma. He has undergone kyphoplasty at L2. He has chronic back. It is managed at a tolerable level with OxyContin 30 mg every 12 hours together with immediate release oxycodone 10 mg as needed for breakthrough pain. Those medications will be continued at the same dosages. 3. He has chronic insomnia. At least for now I suggested that he try changing his lorazepam to 1 mg at bedtime taken together with the melatonin and Flexeril. Signed By: Peter Honeycutt M.D. <<Signature on File>>
[2021-10-26 14:13] LABS: PROTEIN, TOTAL 6.8 g/dL (6.1-8.1)
[2021-10-27 09:22] LABS: ALBUMIN 4.1 g/dL (3.8-4.8); ALPHA 1 GLOBULIN 0.3 g/dL (0.2-0.3); ALPHA 2 GLOBULIN 0.7 g/dL (0.5-0.9); BETA 1 GLOBULIN 0.5 g/dL (0.4-0.6); BETA 2 GLOBULIN 0.2 g/dL (0.2-0.5)
== END 2021-10-25 13:40 | disposition home or self-care (01) ==
PROVIDERS: PCP Internal Medicine; Visit Provider Internal Medicine Medical Oncology
DX: C90.01 Multiple myeloma in remission (principal); Z47.89 Encounter for other orthopedic aftercare; D80.1 Nonfamilial hypogammaglobulinemia; G89.29 Other chronic pain; M54.9 Dorsalgia, unspecified; G62.9 Polyneuropathy, unspecified; E34.50 Androgen insensitivity syndrome, unspecified; K21.9 Gastro-esophageal reflux disease without esophagitis; E53.8 Deficiency of other specified B group vitamins; Z86.718 Personal history of other venous thrombosis and embolism; Z79.01 Long term (current) use of anticoagulants; Z86.19 Personal history of other infectious and parasitic diseases; G47.00 Insomnia, unspecified; Z79.891 Long term (current) use of opiate analgesic
CPT/HCPCS: 36591; 80053; 82607; 82746; 82784; 83036; 83520; 83615; 84155; 84165; 85025; 99214

== ENCOUNTER → 2021-11-09 08:42 | Outpatient (BNVA) | payer MEDICARE, BC, SELFPAY | PROVIDERS: PCP Internal Medicine; Visit Provider Orthopaedic Surgery | DX: M54.9 Dorsalgia, unspecified (principal); M47.894 Other spondylosis, thoracic region | CPT/HCPCS: 72072 ==

== ENCOUNTER 2021-11-26 10:30 | Outpatient (CLI) | payer MEDICARE, BC, SELFPAY ==
[2021-11-26 11:12] LABS: Basophils # 0.1 10^3/uL (0.0-0.1); Basophils % 1.2 %; Eosinophils # 0.2 10^3/uL (0.0-0.8); Eosinophils % 3.5 %; Hematocrit 39.3 % (42.0-52.0); Hemoglobin 12.7 g/dL (11.7-16.6); Lymphocytes # 1.5 10^3/uL (0.8-4.8); Lymphocytes % 25.6 %; Mean Corpuscular HGB Conc 32.3 g/dL (30.0-36.0); Mean Corpuscular Hemoglobin 30.1 pg (28.0-34.0); Mean Corpuscular Volume 93.1 fl (80-94); Mean Platelet Volume 8.7 fL (7.4-10.4); Monocytes # 0.5 10^3/uL (0.2-0.9); Neutrophils # 3.46 10^3/uL (1.8-7.7); Neutrophils % 60.2 %; Nucleated Red Blood Cells % 0 %; Platelet Count 266 10^3/cmm (130-400); Red Blood Count 4.22 10^6/uL (4.1-5.3); Red Cell Distribution Width 13.9 % (12.1-15.1); White Blood Count 5.8 10^3/uL (4.0-10.0)
[2021-11-26 11:23] LABS: Alanine Aminotransferase 18 U/L (0-41); Albumin Level 4.2 g/dL (3.5-5.2); Alkaline Phosphatase 94 IU/L (40-130); Anion Gap 14.9 (5-19); Aspartate Amino Transferase 19 U/L (0-40); Blood Urea Nitrogen 14 mg/dL (6-20); Calcium 8.4 mg/dL (8.5-10.5); Carbon Dioxide 26 mmol/L (22-29); Chloride 101 mmol/L (98-107); Globulin 2.1 g/dL (1.3-4.6); Glomerular Filtration Rate 86.4 mL/min (90-130); Glucose 239 mg/dL (65-115); Immunoglobulin IGA 105 mg/dL (70-400); Immunoglobulin IGG 874 mg/dL (700-1600); Immunoglobulin IGM 30 mg/dL (40-230); Lactate Dehydrogenase 157 U/L (135-225); Osmolality Calculated 292 mOsm/kg (285-295); Potassium 4.9 mmol/L (3.5-5.1); Sodium 137 mmol/L (136-145); Total Bilirubin 0.3 mg/dL (0.15-1.2); Total Protein 6.3 g/dL (6.6-8.7)
[2021-11-27 07:24] LABS: PROTEIN, TOTAL 6.1 g/dL (6.1-8.1)
[2021-11-29 14:18] LABS: KAPPA/LAMBDA LIGHT CHAINS FREE 0.88 (0.26-1.65); LAMBDA LIGHT CHAIN, FREE, SERU 19.4 mg/L (5.7-26.3)
[2021-11-29 16:01] LABS: ALBUMIN 3.7 g/dL (3.8-4.8); ALPHA 1 GLOBULIN 0.3 g/dL (0.2-0.3); ALPHA 2 GLOBULIN 0.7 g/dL (0.5-0.9); BETA 1 GLOBULIN 0.4 g/dL (0.4-0.6); BETA 2 GLOBULIN 0.2 g/dL (0.2-0.5); GAMMA GLOBULIN 0.8 g/dL (0.8-1.7)
== END 2021-11-26 10:31 | disposition home or self-care (01) ==
PROVIDERS: PCP Internal Medicine; Visit Provider Internal Medicine Medical Oncology
DX: C90.01 Multiple myeloma in remission (principal); E11.9 Type 2 diabetes mellitus without complications; K21.9 Gastro-esophageal reflux disease without esophagitis; E53.8 Deficiency of other specified B group vitamins; Z79.01 Long term (current) use of anticoagulants; Z79.899 Other long term (current) drug therapy
CPT/HCPCS: 36591; 80053; 82784; 83615; 83883; 84155; 84165; 85025

== ENCOUNTER 2021-12-07 08:14 | Outpatient (CLI) | payer MEDICARE, BC, SELFPAY ==
--- NOTE | 2021-12-07 08:45 | MR_ITS ---
WS: [id number] MRI THORACIC SPINE WITH CONTRAST TECHNIQUE: Sagittal T1, T2 and STIR imaging. Axial T2 imaging. Post gadolinium imaging was obtained. CLINICAL INFORMATION: M54.9 - Dorsalgia, unspecified COMPARISON: Outside examination March 29, 2021 FINDINGS: Mild thoracic curve. Mild thoracic kyphosis. Prominent central protrusion T7-T8 has progressed compar ed to previous with mild central canal stenosis and slight contact of the thoracic cord. No acute com pression fractures. Schmorl's nodes in the lower thoracic spine. Cord signal is normal. Mild LEFT ligamentum flavum hypertrophy at T2-T3 with mild central canal stenosis. Mild to moderate f acet arthropathy lower thoracic spine. Mild LEFT greater than RIGHT foraminal narrowing T10-T11. Mild RIGHT T12-T1 bony foraminal narrowing. Normal caliber thoracic aorta. No suspicious enhancing lesions in the thoracic spine. MR/MR thoracic spine wo/w [id number] IMPRESSION: 1. Mild thoracic kyphosis. No acute compression fractures. 2. Central disc protrusion T7-T8 with slight indentation on the thoracic cord with mild central canal stenosis. This is new compared to previous. 3. A few Schmorl's nodes in the lower thoracic spine with moderate facet arthr opathy in the lower thoracic spine. 4. Mild central canal stenosis T2-T3 with asymmetric LEFT ligamentum flavum hy pertrophy. 5. Mild bony foraminal narrowing described above. 6. No suspicious enhancing lesions.
[2021-12-07] MEDS: gadobenate dimeglumine 20 mL vial IV (10:15)
== END 2021-12-07 08:15 | disposition home or self-care (01) ==
LOC: RAD 08:18
PROVIDERS: PCP Internal Medicine; Visit Provider Orthopaedic Surgery
DX: Z85.79 Personal history of other malignant neoplasms of lymphoid, hematopoietic and related tissues (principal); M40.294 Other kyphosis, thoracic region; M51.24 Other intervertebral disc displacement, thoracic region; M51.44 Schmorl's nodes, thoracic region; M48.04 Spinal stenosis, thoracic region
CPT/HCPCS: 72157

== ENCOUNTER 2021-12-16 11:24 | Outpatient (CLI) | payer MEDICARE, BC, SELFPAY ==
[2021-12-16 12:04] LABS: Basophils # 0.1 10^3/uL (0.0-0.1); Basophils % 1.1 %; Eosinophils # 0.3 10^3/uL (0.0-0.8); Eosinophils % 4.2 %; Hematocrit 40.1 % (42.0-52.0); Hemoglobin 13.2 g/dL (11.7-16.6); Lymphocytes # 1.7 10^3/uL (0.8-4.8); Lymphocytes % 26.7 %; Mean Corpuscular HGB Conc 32.9 g/dL (30.0-36.0); Mean Corpuscular Hemoglobin 29.9 pg (28.0-34.0); Mean Corpuscular Volume 90.7 fl (80-94); Mean Platelet Volume 8.5 fL (7.4-10.4); Monocytes # 0.5 10^3/uL (0.2-0.9); Monocytes % 8.4 %; Neutrophils # 3.83 10^3/uL (1.8-7.7); Neutrophils % 59.3 %; Nucleated Red Blood Cells % 0 %; Platelet Count 281 10^3/cmm (130-400); Red Blood Count 4.42 10^6/uL (4.1-5.3); Red Cell Distribution Width 13.7 % (12.1-15.1); White Blood Count 6.5 10^3/uL (4.0-10.0)
[2021-12-16 12:35] LABS: Alanine Aminotransferase 14 U/L (0-41); Albumin Level 4.4 g/dL (3.5-5.2); Alkaline Phosphatase 93 IU/L (40-130); Anion Gap 13.4 (5-19); Aspartate Amino Transferase 35 U/L (0-40); Blood Urea Nitrogen 17 mg/dL (6-20); Calcium 8.6 mg/dL (8.5-10.5); Carbon Dioxide 28 mmol/L (22-29); Chloride 100 mmol/L (98-107); Globulin 2.3 g/dL (1.3-4.6); Glomerular Filtration Rate 98.9 mL/min (90-130); Glucose 268 mg/dL (65-115); Immunoglobulin IGA 114 mg/dL (70-400); Immunoglobulin IGG 926 mg/dL (700-1600); Lactate Dehydrogenase 182 U/L (135-225); Osmolality Calculated 295 mOsm/kg (285-295); Potassium 4.4 mmol/L (3.5-5.1); Sodium 137 mmol/L (136-145); Total Bilirubin 0.3 mg/dL (0.15-1.2); Total Protein 6.7 g/dL (6.6-8.7)
[2021-12-16 12:48] LABS: Immunoglobulin IGM 26 mg/dL (40-230)
[2021-12-17 09:43] LABS: PROTEIN, TOTAL 6.3 g/dL (6.1-8.1)
[2021-12-17 15:52] LABS: ALBUMIN 3.9 g/dL (3.8-4.8); ALPHA 1 GLOBULIN 0.3 g/dL (0.2-0.3); ALPHA 2 GLOBULIN 0.7 g/dL (0.5-0.9); BETA 1 GLOBULIN 0.4 g/dL (0.4-0.6); BETA 2 GLOBULIN 0.2 g/dL (0.2-0.5); GAMMA GLOBULIN 0.8 g/dL (0.8-1.7)
--- NOTE | 2021-12-19 13:03 | ONC FU_ITS ---
Dr. Honeycutt Patient Follow-Up Note Patient: Chris Byrne Unit #: [id number]: 1960 Dicatated By: Peter Honeycutt M.D.Date of Visit:Dec 16, 2021 Onc Med Follow-up/Prog Note Chief Complaint: Myeloma. History of Present Illness: This is a 61 year-old man with multiple myeloma, subtype unknown, currently in remission. His myeloma was diagnosed sometime early in 2016. He had presented with severe back pain and vertebral compression fractures. His initial treatment included RVD for 1-1/2 cycles, following which he was seen at [facility] in [facility] for his further treatment. He then underwent VDT-PACE induction chemotherapy followed by 2 melphalan-based stem cell transplants. The second was administered at a reduced dosage due to C. difficile colitis. He then underwent VDT-PACE consolidation, following which he was determined to be in a stringently defined complete remission. 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 He had initially continued the carfilzomib and dexamethasone, but the dexamethasone was later stopped due to insomnia, and the carfilzomib ultimately was stopped as of December 2019. At that point he remained in stringent remission. During that time, he had undergone kyphoplasty at the L2 level, and between April 2018 and 2019 he also had been receiving replacement IVIG due to hypogammaglobulinemia and recurrent infections. He continued a 3-month followup schedule at [facility]. I had seen him initially on 08/19/2020 to assist with his follow-up care locally. His further clinical course was complicated by development of a herpes zoster eruption in the lower abdominal/flank area on the right side. He was treated with full dose acyclovir. He had follow-up at [facility] on 03/31/2021. He was found to be in stringent complete remission, with his bone marrow MRD negative. His MRI of the spine showed a small local lesion in the cervical spine, which appeared stable and focal lesions within the thoracic spine also appeared stable. There were no focal lesions noted in the lumbar spine. Mild compressions at L4 and L5 were unchanged. There was no change in the appearance of the vertebroplasty at the L2 fracture site. MRI of the pelvis showed stable lesions. There was no evidence of avascular necrosis. He continued expectant management for the myeloma. His other medical illnesses include type 2 diabetes, androgen deficiency, GERD, and B12 deficiency. He also has a history of Port-A-Cath related thrombosis, for which he has been on anticoagulation with apixaban. He has a non-smoker, but he does chew tobacco. His family history is significant in that his mother was treated for lymphoma and several extended family members have been treated for myeloma. INTERIM HISTORY: He had scheduled follow-up at [facility] on 08/30/2021. On evaluation there is no evidence of M protein in the serum or urine and his bone marrow showed no evidence for atypical plasma cells, either morphologically or by MRD flow test. His imaging studies showed stable appearing chronic compressions of the thoracic and lumbar spine. There were no lytic bone lesions identified and there was no evidence of avascular necrosis. He was felt to qualify for stringent remission. He was recommended to continue laboratory monitoring every 2 months and to continue follow-up there at a 6-month interval. He is seen for a follow-up visit. He continues to complain that he is tired all the time. He has very limited activity, mainly due to his back problems, but he is ambulatory. ECOG score is 2. He has good appetite. He has not had fever. He does tend to get hot and have sweating every evening. He has taking Claritin for allergy related sinus symptoms. He has not had sore mouth or throat and he does not complain of cough. He has not been having shortness of breath or chest pain. He has ongoing problems with his bowel function, which tends to go back and forth between constipation and diarrhea. He has frequent urination. He has chronic back pain and sometimes in his hands. He does not complain of headache. He occasionally gets lightheaded. He has numbness in his feet and a little bit in his hands. He does not sleep well at night. Medications: Acyclovir 1 Tablet (of 400 mg) Oral b.i.d., Ativan 1 Tablet (of 0.5 mg) Oral b.i.d., Cholecalciferol 1 Tablet (of 125 mcg ) Oral daily, Claritin 1 Capsule (of 10 mg) Oral every am, Coreg 1 Tablet (of 3.125 mg) Oral b.i.d., Cyclobenzaprine HCl 1 Tablet (of 10 mg) Oral at bedtime, Eliquis 1 Tablet (of 5 mg) Oral b.i.d., Lomotil Tablet Oral PRN, Magnesium (250 mg) Tablet Oral daily, Melatonin (3 mg) Capsule Oral at bedtime, metFORMIN HCl ER 1 Tablet (of 750 mg) Tablet SR 24 HR Oral b.i.d., oxyCODONE HCl 1 Tablet (of 10 mg) Oral PRN, OxyCONTIN 1 Tablet (of 30 mg) Tablet ER 12 HR Abuse-Deterrent Oral b.i.d., Phenergan 1 Tablet (of 25 mg) Oral PRN, Vitamin C 1 Capsule (of 1000 mg) Oral daily, Zinc 1 Capsule (of 50 mg) Oral daily Allergies: No Known Allergies. Vital Signs: Performed on Dec 16, 2021 13:15 Height - 70.00 in Weight - 240.8 lbs (LOW) BSA - 2.26 sq.m BMI - 34.55 (HIGH) Temperature - 98.1 F (LOW) Pulse - 104 /min (HIGH) Respiration - 18 /min BP - 142/91 mm(hg) (HIGH) O2 Sat - 94 % (LOW) Pain - 4 Fatigue - 6 Physical Examination: Constitutional - He has limited mobility, Eyes - Sclerae nonicteric. Conjunctivae clear, ENMT - No lesions noted in the oral cavity, Hematologic/Lymphatic - No cervical, clavicular, or axillary adenopathy, Respiratory - Lungs are clear with good air movement bilaterally, Cardiovascular - Heart rhythm is regular. There is no murmur, gallop, or rub noted, Abdomen - Moderately distended. Liver and spleen are not enlarged. There is no abdominal mass or ascites noted and there is no inguinal adenopathy, Back/Spine - There is significant tenderness over the upper thoracic spine area, Extremities - No edema, Neurologic - He does not appear to have any focal neurologic deficit. Lab/Imaging: Test performed on Dec 16, 2021 11:55 LDH (Total) 182 U/L Sodium 137 mmol/L Potassium 4.4 mmol/L Chloride 100 mmol/L CO2 28 mmol/L Anion Gap 13.4 BUN 17 mg/dL Creatinine 0.8 mg/dL Cr Clearance (Est) 153.60 mL/min eGFR 98.9 mL/min Glucose 268 mg/dL Osmolality - Calculated 295 mOsm/kg Calcium 8.6 mg/dL Protein, Total 6.7 g/dL Albumin 4.4 g/dL Globulin 2.3 g/dL Bilirubin, Total 0.3 mg/dL ALT (SGPT) 14 U/L AST (SGOT) 35 U/L Alkaline Phosphatase 93 IU/L WBC 6.5 10 3/uL RBC 4.42 10 6/uL HGB 13.2 g/dL HCT 40.1 % MCV 90.7 fl MCH 29.9 pg MCHC 32.9 g/dL RDW 13.7 % Platelet Count 281 10 3/cmm MPV 8.5 fL Neutrophils 3.83 10 3/uL Lymphocytes 1.7 10 3/uL Monocytes 0.5 10 3/uL Eosinophils 0.3 10 3/uL Basophils 0.1 10 3/uL Neutrophil % 59.3 % Lymphocyte % 26.7 % Monocyte % 8.4 % Eosinophil % 4.2 % Basophils % 1.1 % NRBC % 0 % IgA 114 mg/dL Problem List: 1. Multiple myeloma, subtype unknown, initially diagnosed in early 2017. He had severe back pain and vertebral compression fractures at diagnosis. 2. During treatment he underwent L2 kyphoplasty. 3. From April 2018 through mid 2019 he was given replacement IVIG for hypogammaglobulinemia and recurrent infections. 4. He has chronic back pain associated with vertebral compression fractures. 5. 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 6. Type 2 diabetes. 7. Androgen deficiency. 8. GERD. 10. B12 deficiency. 11. He has a history of chronic cath related thrombosis, for which he is on anticoagulation with apixaban. 12. He has a history of C. difficile colitis. Problems Addressed with this Encounter and Plan: 1. Patient with multiple myeloma, subtype unknown, initially diagnosed in early 2016. His myeloma has been in remission following treatment with RVd x 1-1/2 cycles followed by VDT-PACE induction, 2 melphalan-based stem cell transplants, and VDT-PACE consolidation. He had poor tolerance for maintenance treatment with carfilzomib, Revlimid, and dexamethasone, and he was subsequently transitioned to expectant management. His evaluation at [facility] in August 2021 showed continued stringent remission with MRD negative bone marrow. During follow-up he has continued to have very limited activity, mainly due to chronic back pain associated with his vertebral compression fractions. He also has ongoing problems associated with treatment related neuropathy. His overall clinical status, though, remains stable. Thus far there has been no evidence of recurrence/progression of the myeloma. He continues expectant management. He will return for lab studies in 2 months and for a follow-up visit in 4 months. 2. He has multiple vertebral compression fractures associated with the myeloma. He has undergone kyphoplasty at L2. He has chronic back. It is managed at a tolerable level with OxyContin 30 mg every 12 hours together with immediate release oxycodone 10 mg as needed for breakthrough pain. Those medications will be continued at the same dosages. 3. He continues chronic anticoagulation with apixaban for catheter related thrombosis. Signed By: Peter Honeycutt M.D. <<Signature on File>>
== END 2021-12-16 11:25 | disposition home or self-care (01) ==
PROVIDERS: PCP Internal Medicine; Visit Provider Internal Medicine Medical Oncology
DX: C90.01 Multiple myeloma in remission (principal); E11.9 Type 2 diabetes mellitus without complications; K21.9 Gastro-esophageal reflux disease without esophagitis; E53.8 Deficiency of other specified B group vitamins; I82.91 Chronic embolism and thrombosis of unspecified vein; M48.50XA Collapsed vertebra, not elsewhere classified, site unspecified, initial encounter for fracture; G62.9 Polyneuropathy, unspecified; Z79.01 Long term (current) use of anticoagulants; Z79.899 Other long term (current) drug therapy
CPT/HCPCS: 36591; 80053; 82784; 83615; 84155; 84165; 85025; 99214

== ENCOUNTER 2022-01-21 10:15 | Outpatient (CLI) | payer MEDICARE, BC, SELFPAY ==
[2022-01-24 14:52] LABS: KAPPA LIGHT CHAIN, FREE, SERUM 20.9 mg/L (3.3-19.4); KAPPA/LAMBDA LIGHT CHAINS FREE 0.84 (0.26-1.65); LAMBDA LIGHT CHAIN, FREE, SERU 24.9 mg/L (5.7-26.3)
== END 2022-01-21 10:16 | disposition home or self-care (01) ==
PROVIDERS: PCP Internal Medicine; Visit Provider Internal Medicine Medical Oncology
DX: C90.01 Multiple myeloma in remission (principal)
CPT/HCPCS: 36591; 83883

== ENCOUNTER → 2022-03-21 11:28 | Outpatient (BNVA) | payer MEDICARE, BC, SELFPAY | PROVIDERS: PCP Internal Medicine; Visit Provider Internal Medicine Cardiovascular Disease | DX: I25.10 Atherosclerotic heart disease of native coronary artery without angina pectoris (principal); E11.65 Type 2 diabetes mellitus with hyperglycemia; R03.0 Elevated blood-pressure reading, without diagnosis of hypertension; E78.5 Hyperlipidemia, unspecified; G47.33 Obstructive sleep apnea (adult) (pediatric); C90.01 Multiple myeloma in remission; Z79.84 Long term (current) use of oral hypoglycemic drugs | CPT/HCPCS: 99214 ==

== ENCOUNTER 2022-03-24 14:10 | Oncology outpatient (recurring) (ONCR) | payer MEDICARE, BC, SELFPAY | END 2022-04-14 23:59 | disposition home or self-care (01) | PROVIDERS: PCP Internal Medicine; Visit Provider Internal Medicine Medical Oncology | DX: Z45.2 Encounter for adjustment and management of vascular access device (principal) | CPT/HCPCS: 96523 ==

== ENCOUNTER 2022-04-25 11:32 | Oncology outpatient (recurring) (ONCR) | payer MEDICARE, BC, SELFPAY ==
[2022-04-25 12:49] LABS: Basophils # 0.1 10^3/uL (0.0-0.1); Basophils % 0.9 %; Eosinophils # 0.2 10^3/uL (0.0-0.8); Eosinophils % 3.2 %; Hematocrit 38.2 % (42.0-52.0); Lymphocytes % 30.2 %; Mean Corpuscular Hemoglobin 29.8 pg (28.0-34.0); Mean Corpuscular Volume 87.6 fl (80-94); Mean Platelet Volume 8.7 fL (7.4-10.4); Monocytes # 0.5 10^3/uL (0.2-0.9); Monocytes % 7.6 %; Neutrophils # 3.81 10^3/uL (1.8-7.7); Neutrophils % 57.6 %; Nucleated Red Blood Cells % 0 %; Platelet Count 277 10^3/cmm (130-400); Red Blood Count 4.36 10^6/uL (4.1-5.3); Red Cell Distribution Width 13.8 % (12.1-15.1); White Blood Count 6.6 10^3/uL (4.0-10.0)
[2022-04-25 13:30] LABS: Alanine Aminotransferase 16 U/L (0-41); Alkaline Phosphatase 91 IU/L (40-130); Aspartate Amino Transferase 24 U/L (0-40); Blood Urea Nitrogen 17 mg/dL (8-23); Calcium 8.7 mg/dL (8.5-10.5); Carbon Dioxide 26 mmol/L (22-29); Chloride 101 mmol/L (98-107); Globulin 2.5 g/dL (1.3-4.6); Glomerular Filtration Rate 76.2 mL/min (90-130); Glucose 216 mg/dL (65-115); Osmolality Calculated 294 mOsm/kg (285-295); Sodium 138 mmol/L (136-145); Total Bilirubin 0.4 mg/dL (0.15-1.2); Total Protein 6.5 g/dL (6.6-8.7)
[2022-04-25 13:32] LABS: Anion Gap 16.2 (5-19)
[2022-04-25 13:33] LABS: Potassium 5.2 mmol/L (3.5-5.1)
[2022-04-25 14:20] LABS: Phosphorus 4.1 mg/dL (2.5-4.5); Uric Acid 5.4 mg/dL (3.4-7.0)
[2022-04-25 14:26] LABS: Estmated Average Glucose 203; Hemoglobin A1C 8.7 % (4.0-6.0)
== END 2022-05-15 23:59 | disposition home or self-care (01) ==
PROVIDERS: Internal Medicine Hematology & Oncology; PCP Internal Medicine; Visit Provider Internal Medicine Medical Oncology
DX: C90.01 Multiple myeloma in remission (principal); M48.56XD Collapsed vertebra, not elsewhere classified, lumbar region, subsequent encounter for fracture with routine healing; G89.29 Other chronic pain; M54.50 Low back pain, unspecified; E11.65 Type 2 diabetes mellitus with hyperglycemia; Z79.891 Long term (current) use of opiate analgesic; Z79.899 Other long term (current) drug therapy; Z79.4 Long term (current) use of insulin; Z92.21 Personal history of antineoplastic chemotherapy; Z92.25 Personal history of immunosuppression therapy
CPT/HCPCS: 36591; 80053; 83036; 83735; 84100; 84550; 85025; 99214

== ENCOUNTER 2022-05-23 14:44 | Oncology outpatient (recurring) (ONCR) | payer MEDICARE, BC, SELFPAY ==
[2022-05-23 15:00] VITALS: BP 120/90; PULSE 91; RESP 16; TEMP 36.9; O2SAT 97
== END 2022-06-15 23:59 | disposition home or self-care (01) ==
LOC: ONCMED 14:44
PROVIDERS: PCP Internal Medicine; Visit Provider Internal Medicine Medical Oncology
DX: Z45.2 Encounter for adjustment and management of vascular access device (principal); C90.01 Multiple myeloma in remission
CPT/HCPCS: 96523

== ENCOUNTER → 2022-06-08 15:26 | Outpatient (BNVA) | payer MEDICARE, BC, SELFPAY | PROVIDERS: PCP Internal Medicine; Visit Provider Specialist | DX: E11.41 Type 2 diabetes mellitus with diabetic mononeuropathy (principal); Z79.84 Long term (current) use of oral hypoglycemic drugs | CPT/HCPCS: 99213; 99214 ==

== ENCOUNTER 2022-06-21 11:22 | Oncology outpatient (recurring) (ONCR) | payer MEDICARE, BC, SELFPAY ==
[2022-06-21 12:14] LABS: Basophils # 0.1 10^3/uL (0.0-0.1); Basophils % 0.8 %; Eosinophils # 0.2 10^3/uL (0.0-0.8); Eosinophils % 3.3 %; Hematocrit 39.4 % (42.0-52.0); Hemoglobin 13.2 g/dL (11.7-16.6); Lymphocytes # 1.9 10^3/uL (0.8-4.8); Lymphocytes % 28.5 %; Mean Corpuscular HGB Conc 33.5 g/dL (30.0-36.0); Mean Corpuscular Hemoglobin 29.9 pg (28.0-34.0); Mean Corpuscular Volume 89.3 fl (80-94); Mean Platelet Volume 8.6 fL (7.4-10.4); Monocytes # 0.5 10^3/uL (0.2-0.9); Monocytes % 7.5 %; Neutrophils # 3.96 10^3/uL (1.8-7.7); Neutrophils % 59.4 %; Nucleated Red Blood Cells % 0 %; Platelet Count 272 10^3/cmm (130-400); Red Blood Count 4.41 10^6/uL (4.1-5.3); Red Cell Distribution Width 13.9 % (12.1-15.1); White Blood Count 6.7 10^3/uL (4.0-10.0)
[2022-06-21 12:40] LABS: Alanine Aminotransferase 13 U/L (0-41); Albumin Level 4.2 g/dL (3.5-5.2); Alkaline Phosphatase 90 U/L (40-130); Anion Gap 13.3 (5-19); Aspartate Amino Transferase 20 U/L (0-40); Blood Urea Nitrogen 17 mg/dL (8-23); Calcium 8.7 mg/dL (8.5-10.5); Carbon Dioxide 26 mmol/L (22-29); Chloride 99 mmol/L (98-107); Globulin 2.3 g/dL (1.3-4.6); Glomerular Filtration Rate 98.6 mL/min (90-130); Glucose 184 mg/dL (65-115); Osmolality Calculated 284 mOsm/kg (285-295); Potassium 4.3 mmol/L (3.5-5.1); Sodium 134 mmol/L (136-145); Total Bilirubin 0.5 mg/dL (0.15-1.2); Total Protein 6.5 g/dL (6.6-8.7)
[2022-06-21 12:57] LABS: Vitamin B12 361 pg/mL (232-1245)
== END 2022-07-15 23:59 | disposition home or self-care (01) ==
LOC: ONCMED 11:23
PROVIDERS: Nurse Practitioner; Specialist; PCP Internal Medicine; Visit Provider Internal Medicine Medical Oncology
DX: C90.01 Multiple myeloma in remission (principal); G62.9 Polyneuropathy, unspecified
CPT/HCPCS: 36591; 80053; 82607; 83520; 85025

== ENCOUNTER 2022-08-15 10:43 | Oncology outpatient (recurring) (ONCR) | payer MEDICARE, BC, SELFPAY ==
[2022-08-15 11:13] LABS: Basophils # 0.1 10^3/uL (0.0-0.1); Eosinophils # 0.2 10^3/uL (0.0-0.8); Eosinophils % 2.9 %; Hematocrit 41.2 % (42.0-52.0); Hemoglobin 13.8 g/dL (11.7-16.6); Lymphocytes # 1.6 10^3/uL (0.8-4.8); Lymphocytes % 26.8 %; Mean Corpuscular HGB Conc 33.5 g/dL (30.0-36.0); Mean Corpuscular Volume 89.6 fl (80-94); Mean Platelet Volume 8.6 fL (7.4-10.4); Monocytes # 0.4 10^3/uL (0.2-0.9); Monocytes % 7.1 %; Neutrophils # 3.65 10^3/uL (1.8-7.7); Neutrophils % 61.9 %; Nucleated Red Blood Cells % 0 %; Platelet Count 270 10^3/cmm (130-400); Red Cell Distribution Width 13.7 % (12.1-15.1); White Blood Count 5.9 10^3/uL (4.0-10.0)
[2022-08-15 11:37] LABS: Estmated Average Glucose 192; Hemoglobin A1C 8.3 % (4.0-6.0)
[2022-08-15 11:38] LABS: Alanine Aminotransferase 13 U/L (0-41); Albumin Level 4.1 g/dL (3.5-5.2); Alkaline Phosphatase 94 U/L (40-130); Anion Gap 16.1 (5-19); Aspartate Amino Transferase 17 U/L (0-40); Blood Urea Nitrogen 14 mg/dL (8-23); Calcium 8.9 mg/dL (8.5-10.5); Carbon Dioxide 26 mmol/L (22-29); Chloride 98 mmol/L (98-107); Globulin 2.6 g/dL (1.3-4.6); Glomerular Filtration Rate 86.1 mL/min (90-130); Glucose 241 mg/dL (65-115); Osmolality Calculated 290 mOsm/kg (285-295); Potassium 4.1 mmol/L (3.5-5.1); Sodium 136 mmol/L (136-145); Total Bilirubin 0.5 mg/dL (0.15-1.2); Total Protein 6.7 g/dL (6.6-8.7)
[2022-08-16 09:33] LABS: Magnesium 1.7 mg/dL (1.7-2.3); Phosphorus 3.3 mg/dL (2.5-4.5); Uric Acid 6.2 mg/dL (3.4-7.0)
== END 2022-08-15 23:59 | disposition home or self-care (01) ==
PROVIDERS: Internal Medicine Hematology & Oncology; PCP Internal Medicine; Visit Provider Internal Medicine Medical Oncology
DX: C90.01 Multiple myeloma in remission (principal); M54.9 Dorsalgia, unspecified; G89.29 Other chronic pain; Z92.21 Personal history of antineoplastic chemotherapy; E11.65 Type 2 diabetes mellitus with hyperglycemia
CPT/HCPCS: 36591; 80053; 83036; 83735; 84100; 84550; 85025; 99214

== ENCOUNTER 2022-09-12 14:22 | Oncology outpatient (recurring) (ONCR) | payer MEDICARE, BC, SELFPAY ==
[2022-09-12 14:39] VITALS: BP 127/88; PULSE 96; RESP 16; TEMP 36.4; O2SAT 99
== END 2022-09-14 23:59 | disposition home or self-care (01) ==
PROVIDERS: PCP Internal Medicine; Visit Provider Internal Medicine Medical Oncology
DX: Z45.2 Encounter for adjustment and management of vascular access device (principal)
CPT/HCPCS: 96523

== ENCOUNTER → 2022-09-20 14:07 | Outpatient (BNVA) | payer MEDICARE, BC, SELFPAY | PROVIDERS: PCP Internal Medicine; Visit Provider Nurse Practitioner Family | DX: I25.10 Atherosclerotic heart disease of native coronary artery without angina pectoris (principal) | CPT/HCPCS: 93005; 99214 ==

== ENCOUNTER 2022-10-11 13:02 | Oncology outpatient (recurring) (ONCR) | payer MEDICARE, BC, SELFPAY | END 2022-10-15 23:59 | disposition home or self-care (01) | LOC: ONCMED 13:03 | PROVIDERS: PCP Internal Medicine; Visit Provider Internal Medicine Medical Oncology | DX: Z45.2 Encounter for adjustment and management of vascular access device (principal); Z95.828 Presence of other vascular implants and grafts | CPT/HCPCS: 96523 ==

== ENCOUNTER 2022-10-14 12:26 | Outpatient (CLI) | payer MEDICARE, BC, SELFPAY ==
--- NOTE | 2022-10-14 13:30 | USCV_ITS ---
Chris Byrne Age: 62 Gender: M : 1960 Exam Date: 10/14/2022 12:58 Ordering Phys: Barby Burch Technologist: CT Exam Location: [facility] [place] Indication: rt carotid bruit Risk Factors: Previous Vascular Surgery: Right Brachial BP: / Left Brachial BP: / Right Left Velocity (cm/s) Spectral Plaque Velocity (cm/s) Spectral Plaque Syst/Diast Broadening Syst/Diast Broadening 73.50/ 26.50 Prox CCA 59.80 / 22.50 72.60/ 24.80 Mid CCA 66.80 / 26.40 80.30/ 29.10 Distal CCA 68.90 / 29.30 57.50/ 24.40 Prox ICA 56.00 / 27.70 52.20/ 25.80 Mid ICA 59.00 / 30.10 78.00/ 31.70 Distal ICA 51.60 / 23.50 74.90 ECA 70.60 0.97 ICA/CCA 0.86 Antegrade Vertebral Antegrade 25.60/ 12.40 cm/s 30.90/ 17.10 cm/s Tri Subclavian Tri 61.40 132.8 0 FINDINGS no stenosis CONCLUSIONS Right ICA stenosis <50%. Left ICA stenosis <50%. Normal antegrade Doppler flow noted in the right vertebral artery. Normal antegrade Doppler flow noted in the left vertebral artery. Brian Maher MD (Electronically Signed) Final Date: 14 October 2022 15:14 S
== END 2022-10-14 12:27 | disposition home or self-care (01) ==
LOC: RAD 12:30
PROVIDERS: PCP Internal Medicine; Visit Provider Nurse Practitioner Family
DX: R09.89 Other specified symptoms and signs involving the circulatory and respiratory systems (principal); I65.23 Occlusion and stenosis of bilateral carotid arteries
CPT/HCPCS: 93880

== ENCOUNTER 2022-10-14 12:26 | Outpatient (CLI) | payer MEDICARE, BC, SELFPAY ==
--- NOTE | 2022-10-14 12:45 | USCV_ITS ---
Chris Byrne Age: 62 Gender: M : 1960 Exam Date: 10/14/2022 13:22 Ordering Phys: Barby Burch Technologist: Rene Crisostomo [place] [facility] [place]: syncope BP: 140 / 80 HR: 86 Rhythm: Sinus Technical Quality: Adequate MEASUREMENTS (Male / Female) Normal Values 2D ECHO LV Diastolic Diameter PLAX 4.0 cm 4.2 - 5.9 / 3.9 - 5.3 cm LV Systolic Diameter PLAX 2.9 cm IVS Diastolic Thickness 1.0 cm 0.6 - 1.0 / 0.6 - 0.9 cm IVS Systolic Thickness 1.6 cm LVPW Diastolic Thickness 1.2 cm 0.6 - 1.0 / 0.6 - 0.9 cm LVPW Systolic Thickness 1.5 cm LVOT Diameter 2.1 cm LV Ejection Fraction 2D Teich 43.5 % LV Ejection Fraction MOD 2C 58.1 % LV Ejection Fraction 2C AL 59.4 % LA Diameter 3.4 cm M-MODE Aortic Annulus Diameter 2.9 cm LA Ao Ratio MM 1.1 DOPPLER AV Peak Velocity 140.0 cm/s LVOT Peak Velocity 94.0 cm/s AV Area Cont Eq vti 2.6 cm squared AV Area Cont Eq pk 2.3 cm squared MV Area PHT 2.8 cm squared Mitral E to A Ratio 0.8 MV E' Velocity 37.0 cm/s Mitral E to MV E' Ratio 7.5 Mitral E to LV E' Lateral Ratio 7.0 Mitral E to LV E' Septal Ratio 8.3 TR Peak Velocity 111.7 cm/s TR Peak Gradient 5.0 mmHg TV Peak E Velocity 78.0 cm/s Right Atrial Pressure 3.0 mmHg Pulmonary Artery Systolic Pressu 8.0 mmHg FINDINGS Left Ventricle Normal left ventricular size and systolic function, EF 59 %. No regional wall motion abnormalities. Right Ventricle The right ventricle is normal in size and function. Right Atrium The right atrium is normal in size. Left Atrium The left atrium is normal in size. Mitral Valve No gross abnormalities noted Aortic Valve No gross abnormalities noted Tricuspid Valve No gross abnormalities noted Pulmonic Valve No gross abnormalities noted Pericardium Normal pericardium without effusion. Aorta Normal ascending aorta dimension. IVC The inferior vena cava appears normal. CONCLUSIONS Normal left ventricular size and systolic function, EF 59 %. No regional wall motion abnormalities. Normal cardiac chamber sizes No significant stenotic or regurgitant lesions No intracardiac masses No pericardial effusion No similar previous studies are available for comparison Dr Argelia Morales MD [facility] (Electronically Signed) Final Date: 14 October 2022 17:00 S
== END 2022-10-14 12:27 | disposition home or self-care (01) ==
LOC: RAD 12:30
PROVIDERS: PCP Internal Medicine; Visit Provider Nurse Practitioner Family
DX: R55 Syncope and collapse (principal); R09.89 Other specified symptoms and signs involving the circulatory and respiratory systems; I65.23 Occlusion and stenosis of bilateral carotid arteries
CPT/HCPCS: 93306; 93880

== ENCOUNTER 2022-11-08 13:07 | Oncology outpatient (recurring) (ONCR) | payer MEDICARE, BC, SELFPAY ==
[2022-11-08 13:22] VITALS: BP 123/87; PULSE 87; RESP 16; TEMP 35.6; O2SAT 97
== END 2022-11-15 23:59 | disposition home or self-care (01) ==
PROVIDERS: PCP Internal Medicine; Visit Provider Internal Medicine Medical Oncology
DX: Z45.2 Encounter for adjustment and management of vascular access device (principal)
CPT/HCPCS: 96523

== ENCOUNTER → 2022-12-07 15:34 | Outpatient (BNVA) | payer MEDICARE, BC, SELFPAY | PROVIDERS: PCP Internal Medicine; Visit Provider Specialist | DX: E11.40 Type 2 diabetes mellitus with diabetic neuropathy, unspecified (principal); Z87.81 Personal history of (healed) traumatic fracture; C90.01 Multiple myeloma in remission; I25.10 Atherosclerotic heart disease of native coronary artery without angina pectoris; Z79.01 Long term (current) use of anticoagulants; Z79.84 Long term (current) use of oral hypoglycemic drugs | CPT/HCPCS: 99213 ==

== ENCOUNTER 2022-12-13 10:55 | Oncology outpatient (recurring) (ONCR) | payer MEDICARE, BC, SELFPAY ==
[2022-12-13 11:46] LABS: Basophils # 0.1 10^3/uL (0.0-0.1); Eosinophils # 0.3 10^3/uL (0.0-0.8); Eosinophils % 3.4 %; Hematocrit 38.9 % (42.0-52.0); Hemoglobin 12.7 g/dL (11.7-16.6); Lymphocytes # 1.7 10^3/uL (0.8-4.8); Lymphocytes % 22.8 %; Mean Corpuscular HGB Conc 32.6 g/dL (30.0-36.0); Mean Corpuscular Hemoglobin 29.2 pg (28.0-34.0); Mean Corpuscular Volume 89.4 fl (80-94); Mean Platelet Volume 8.6 fL (7.4-10.4); Monocytes # 0.5 10^3/uL (0.2-0.9); Monocytes % 6.7 %; Neutrophils # 4.79 10^3/uL (1.8-7.7); Neutrophils % 65.6 %; Nucleated Red Blood Cells % 0 %; Platelet Count 287 10^3/cmm (130-400); Red Blood Count 4.35 10^6/uL (4.1-5.3); Red Cell Distribution Width 14.2 % (12.1-15.1); White Blood Count 7.3 10^3/uL (4.0-10.0)
[2022-12-13 12:00] LABS: Alanine Aminotransferase 13 U/L (0-41); Albumin Level 3.8 g/dL (3.5-5.2); Alkaline Phosphatase 89 U/L (40-130); Aspartate Amino Transferase 18 U/L (0-40); Blood Urea Nitrogen 11 mg/dL (8-23); C Reactive Protein 10.8 mg/L (0.0-4.9); Calcium 8.7 mg/dL (8.5-10.5); Carbon Dioxide 27 mmol/L (22-29); Chloride 101 mmol/L (98-107); Globulin 2.5 g/dL (1.3-4.6); Glomerular Filtration Rate 98.6 mL/min (90-130); Glucose 208 mg/dL (65-115); Immunoglobulin IGA 132 mg/dL (70-400); Immunoglobulin IGG 946 mg/dL (700-1600); Immunoglobulin IGM 25 mg/dL (40-230); Magnesium 1.8 mg/dL (1.7-2.3); Osmolality Calculated 291 mOsm/kg (285-295); Sodium 138 mmol/L (136-145); Total Bilirubin 0.5 mg/dL (0.15-1.2); Total Protein 6.3 g/dL (6.6-8.7); Uric Acid 4.9 mg/dL (3.4-7.0)
[2022-12-13 13:50] LABS: Estmated Average Glucose 177; Hemoglobin A1C 7.8 % (4.0-6.0)
[2022-12-14 10:49] LABS: PROTEIN, TOTAL 6.1 g/dL (6.1-8.1)
[2022-12-14 12:59] LABS: Beta-2-Microglobulin 1.86 mg/L (< OR = 2.51)
[2022-12-14 13:18] LABS: ALBUMIN 3.6 g/dL (3.8-4.8); ALPHA 1 GLOBULIN 0.3 g/dL (0.2-0.3); ALPHA 2 GLOBULIN 0.7 g/dL (0.5-0.9); BETA 1 GLOBULIN 0.4 g/dL (0.4-0.6); BETA 2 GLOBULIN 0.2 g/dL (0.2-0.5); GAMMA GLOBULIN 0.9 g/dL (0.8-1.7)
[2022-12-14 14:18] LABS: KAPPA/LAMBDA LIGHT CHAINS FREE 0.91 (0.26-1.65); LAMBDA LIGHT CHAIN, FREE, SERU 20.9 mg/L (5.7-26.3)
== END 2022-12-13 23:59 | disposition home or self-care (01) ==
PROVIDERS: PCP Internal Medicine; Visit Provider Internal Medicine Medical Oncology
DX: C90.01 Multiple myeloma in remission; E11.9 Type 2 diabetes mellitus without complications; G62.0 Drug-induced polyneuropathy; T45.1X5A Adverse effect of antineoplastic and immunosuppressive drugs, initial encounter; Z87.891 Personal history of nicotine dependence; M54.9 Dorsalgia, unspecified; G89.29 Other chronic pain; Z79.84 Long term (current) use of oral hypoglycemic drugs
CPT/HCPCS: 36591; 80053; 82232; 82784; 83036; 83735; 83883; 84155; 84165; 84550; 85025; 86140; 86334; 99214

== ENCOUNTER → 2023-01-03 09:53 | Outpatient (BNVA) | payer MEDICARE, BC, SELFPAY | PROVIDERS: PCP Internal Medicine; Visit Provider Podiatrist Foot & Ankle Surgery | DX: E11.8 Type 2 diabetes mellitus with unspecified complications (principal); E11.42 Type 2 diabetes mellitus with diabetic polyneuropathy; R09.89 Other specified symptoms and signs involving the circulatory and respiratory systems; M21.41 Flat foot [pes planus] (acquired), right foot; M21.42 Flat foot [pes planus] (acquired), left foot; Z79.84 Long term (current) use of oral hypoglycemic drugs | CPT/HCPCS: 93922; 93923; 99204 ==

== ENCOUNTER 2023-01-10 12:53 | Oncology outpatient (recurring) (ONCR) | payer MEDICARE, BC, SELFPAY ==
[2023-01-10 13:49] VITALS: BP 116/81; PULSE 96; RESP 16; TEMP 35.9; O2SAT 96
[2023-01-11 13:19] LABS: CREATININE, 24 HOUR URINE 1.59 g/24 h (0.50-2.15); PROTEIN, TOTAL, 24 HR UR 140 mg/24 h (<150); Protein/Creatinine Ratio 0.088 (<0.100); Protein/Creatinine Ratio 88 mg/g creat (<100)
[2023-01-12 15:59] LABS: ALBUMIN 100 %; ALPHA-1-GLOBULINS 0 %; ALPHA-2-GLOBULINS 0 %; BETA GLOBULINS 0 %; GAMMA GLOBULINS 0 %
== END 2023-01-13 23:59 | disposition home or self-care (01) ==
PROVIDERS: PCP Internal Medicine; Visit Provider Internal Medicine Medical Oncology
DX: Z45.2 Encounter for adjustment and management of vascular access device (principal); C90.01 Multiple myeloma in remission
CPT/HCPCS: 84156; 84166

== ENCOUNTER 2023-02-07 12:14 | Oncology outpatient (recurring) (ONCR) | payer MEDICARE, BC, SELFPAY ==
[2023-02-07 12:50] VITALS: BP 116/85; PULSE 108; RESP 18; TEMP 35.9; O2SAT 95
--- NOTE | 2023-02-07 13:26 | PC.NURSE ---
Right chest port accessed, flushed without issue, no blood return noted. Patient declined cathflo at this time, states if his port has issues next month then he would get cathflo then. Labs drawn peripherally from right AC.
[2023-02-07 13:38] LABS: Basophils # 0.1 10^3/uL (0.0-0.1); Basophils % 1.2 %; Eosinophils # 0.2 10^3/uL (0.0-0.8); Eosinophils % 2.7 %; Hematocrit 40.6 % (42.0-52.0); Hemoglobin 13.2 g/dL (11.7-16.6); Lymphocytes # 1.9 10^3/uL (0.8-4.8); Lymphocytes % 28.4 %; Mean Corpuscular HGB Conc 32.5 g/dL (30.0-36.0); Mean Corpuscular Hemoglobin 29.2 pg (28.0-34.0); Mean Corpuscular Volume 89.8 fl (80-94); Mean Platelet Volume 8.5 fL (7.4-10.4); Monocytes # 0.5 10^3/uL (0.2-0.9); Neutrophils # 3.99 10^3/uL (1.8-7.7); Neutrophils % 59.4 %; Nucleated Red Blood Cells % 0 %; Platelet Count 289 10^3/cmm (130-400); Red Blood Count 4.52 10^6/uL (4.1-5.3); Red Cell Distribution Width 14.1 % (12.1-15.1); White Blood Count 6.7 10^3/uL (4.0-10.0)
[2023-02-07 13:58] LABS: Alanine Aminotransferase 16 U/L (0-41); Albumin Level 4.1 g/dL (3.5-5.2); Alkaline Phosphatase 85 U/L (40-130); Anion Gap 15.2 (5-19); Aspartate Amino Transferase 28 U/L (0-40); Blood Urea Nitrogen 15 mg/dL (8-23); Calcium 8.4 mg/dL (8.5-10.5); Carbon Dioxide 28 mmol/L (22-29); Chloride 102 mmol/L (98-107); Globulin 2.5 g/dL (1.3-4.6); Glomerular Filtration Rate 98.6 mL/min (90-130); Glucose 228 mg/dL (65-115); Osmolality Calculated 298 mOsm/kg (285-295); Potassium 5.2 mmol/L (3.5-5.1); Sodium 140 mmol/L (136-145); Total Bilirubin 0.4 mg/dL (0.15-1.2); Total Protein 6.6 g/dL (6.6-8.7)
[2023-02-08 15:11] LABS: KAPPA/LAMBDA LIGHT CHAINS FREE 0.67 (0.26-1.65); LAMBDA LIGHT CHAIN, FREE, SERU 31.2 mg/L (5.7-26.3)
[2023-02-08 16:33] LABS: PROTEIN, TOTAL 6.4 g/dL (6.1-8.1)
[2023-02-09 15:06] LABS: ALBUMIN 3.9 g/dL (3.8-4.8); ALPHA 1 GLOBULIN 0.3 g/dL (0.2-0.3); ALPHA 2 GLOBULIN 0.7 g/dL (0.5-0.9); BETA 1 GLOBULIN 0.4 g/dL (0.4-0.6); BETA 2 GLOBULIN 0.2 g/dL (0.2-0.5); GAMMA GLOBULIN 0.9 g/dL (0.8-1.7)
== END 2023-02-12 23:59 | disposition home or self-care (01) ==
LOC: ONCMED 12:14
PROVIDERS: PCP Internal Medicine; Visit Provider Internal Medicine Medical Oncology
DX: C90.01 Multiple myeloma in remission
CPT/HCPCS: 36415; 80053; 83883; 84155; 84165; 85025

== ENCOUNTER 2023-03-14 12:37 | Oncology outpatient (recurring) (ONCR) | payer MEDICARE, BC, SELFPAY | END 2023-03-15 23:59 | disposition home or self-care (01) | PROVIDERS: PCP Internal Medicine; Visit Provider Internal Medicine Medical Oncology | DX: Z45.2 Encounter for adjustment and management of vascular access device (principal) | CPT/HCPCS: 96523; J1642 ==

== ENCOUNTER → 2023-03-29 13:25 | Outpatient (BNVA) | payer MEDICARE, BC, SELFPAY | PROVIDERS: PCP Internal Medicine; Visit Provider Nurse Practitioner Family | DX: L57.0 Actinic keratosis (principal); L85.3 Xerosis cutis; L57.8 Other skin changes due to chronic exposure to nonionizing radiation; L81.4 Other melanin hyperpigmentation; D22.5 Melanocytic nevi of trunk; Z71.89 Other specified counseling; Z85.828 Personal history of other malignant neoplasm of skin | CPT/HCPCS: 17000; 17003; 99213 ==

== ENCOUNTER 2023-04-04 11:50 | Oncology outpatient (recurring) (ONCR) | payer MEDICARE, BC, SELFPAY ==
[2023-04-04 12:11] VITALS: BP 134/83; PULSE 96; RESP 18; TEMP 36.3; O2SAT 96
[2023-04-04 12:23] LABS: Basophils # 0.1 10^3/uL (0.0-0.1); Basophils % 0.8 %; Eosinophils # 0.1 10^3/uL (0.0-0.8); Eosinophils % 1.9 %; Hematocrit 40.2 % (42.0-52.0); Hemoglobin 13.1 g/dL (11.7-16.6); Lymphocytes # 1.9 10^3/uL (0.8-4.8); Lymphocytes % 25.8 %; Mean Corpuscular HGB Conc 32.6 g/dL (30.0-36.0); Mean Corpuscular Hemoglobin 29.1 pg (28.0-34.0); Mean Corpuscular Volume 89.3 fl (80-94); Mean Platelet Volume 8.5 fL (7.4-10.4); Monocytes # 0.5 10^3/uL (0.2-0.9); Monocytes % 6.9 %; Neutrophils # 4.65 10^3/uL (1.8-7.7); Neutrophils % 64.3 %; Nucleated Red Blood Cells % 0 %; Platelet Count 267 10^3/cmm (130-400); Red Cell Distribution Width 14.4 % (12.1-15.1); White Blood Count 7.2 10^3/uL (4.0-10.0)
[2023-04-04 12:39] LABS: Alanine Aminotransferase 16 U/L (0-41); Albumin Level 3.8 g/dL (3.5-5.2); Alkaline Phosphatase 86 U/L (40-130); Anion Gap 16.5 (5-19); Aspartate Amino Transferase 21 U/L (0-40); Blood Urea Nitrogen 14 mg/dL (8-23); Carbon Dioxide 26 mmol/L (22-29); Chloride 101 mmol/L (98-107); Creatinine Clr Calc Pharmacy 97.0498; Globulin 2.7 g/dL (1.3-4.6); Glomerular Filtration Rate 76.2 mL/min (90-130); Glucose 201 mg/dL (65-115); Osmolality Calculated 294 mOsm/kg (285-295); Potassium 4.5 mmol/L (3.5-5.1); Sodium 139 mmol/L (136-145); Total Bilirubin 0.2 mg/dL (0.15-1.2); Total Protein 6.5 g/dL (6.6-8.7)
[2023-04-04 12:42] LABS: Estmated Average Glucose 180; Hemoglobin A1C 7.9 % (4.0-6.0)
[2023-04-04 15:15] LABS: Immunoglobulin IGA 141 mg/dL (70-400); Immunoglobulin IGG 1003 mg/dL (700-1600); Immunoglobulin IGM 32 mg/dL (40-230)
[2023-04-06 12:46] LABS: KAPPA LIGHT CHAIN, FREE, SERUM 19.6 mg/L (3.3-19.4); LAMBDA LIGHT CHAIN, FREE, SERU 28.2 mg/L (5.7-26.3)
[2023-04-06 13:55] LABS: PROTEIN, TOTAL 6.4 g/dL (6.1-8.1)
[2023-04-06 15:09] LABS: ALBUMIN 3.7 g/dL (3.8-4.8); ALPHA 1 GLOBULIN 0.3 g/dL (0.2-0.3); ALPHA 2 GLOBULIN 0.7 g/dL (0.5-0.9); BETA 1 GLOBULIN 0.4 g/dL (0.4-0.6); BETA 2 GLOBULIN 0.3 g/dL (0.2-0.5)
== END 2023-04-14 23:59 | disposition home or self-care (01) ==
PROVIDERS: Nurse Practitioner Family; PCP Internal Medicine; Visit Provider Internal Medicine Medical Oncology
DX: C90.01 Multiple myeloma in remission; R53.1 Weakness; R53.83 Other fatigue; M48.50XA Collapsed vertebra, not elsewhere classified, site unspecified, initial encounter for fracture; E11.9 Type 2 diabetes mellitus without complications
CPT/HCPCS: 36591; 80053; 82784; 83036; 83883; 84155; 84165; 85025; 99214; J1642

== ENCOUNTER 2023-05-04 10:31 | Oncology outpatient (recurring) (ONCR) | payer MEDICARE, BC, SELFPAY ==
[2023-05-04 10:45] VITALS: BP 108/71; PULSE 96; RESP 18; TEMP 36.1; O2SAT 96
== END 2023-05-15 23:59 | disposition home or self-care (01) ==
LOC: ONCMED 10:32
PROVIDERS: PCP Internal Medicine; Visit Provider Internal Medicine Medical Oncology
DX: Z45.2 Encounter for adjustment and management of vascular access device (principal); C90.01 Multiple myeloma in remission; G62.9 Polyneuropathy, unspecified
CPT/HCPCS: 96523; J1642

== ENCOUNTER 2023-05-05 15:02 | Emergency (ER) | payer MEDICARE, BC, SELFPAY ==
--- NOTE | 2023-05-05 15:07 | ED_ITS ---
HPI - Fall General: Chief Complaint: Fall Stated Complaint: fall down stairs Time Seen by Provider: 05/05/23 15:07 History of Present Illness: Mr. Byrne is a 63-year-old gentleman on anticoagulation presented to the emergency department for fall with head injury. He reports being at his baseline health and was moving a box down stairs when he fell from the top of the stairs forward. He reports stumbling approximately 15 steps. He did hit his head and mostly left side of his body including left arm. Denies loss of consciousness. Moderate intensity pain worse with palpation and movement. No other specific changes in health, exacerbating, or alleviating factors identifi ed. 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 Possible old inferior wall myocardial infarction. Possible old septal UT Chronic back pain Dyslipidemia (high LDL; low HDL) Fatty liver GERD (gastroesophageal reflux disease) History of nonmelanoma skin cancer History of vertebral compression fracture Hypogonadism Multiple myeloma in remission Pulmonary nodule Type 2 diabetes mellitus Vitamin B 12 deficiency Surgical History Coronary stent patent H/O kyphoplasty H/O wrist surgery Hx of Achilles tendon repair Family History Sister CAD (coronary artery disease) Mother Cancer Father Dementia Other Diabetes Family history of premature coronary artery disease Denies family history of Clotting disorder Chronic kidney disease (CKD) Suicide Anesthesia complication Bleeding disorder Lung disease Stroke Social History Smoking and tobacco status: never smoked Quit status (tobacco): not considering quitting Second hand smoke exposure: No Smoking risk assessment/counseling performed?: Yes Alcohol intake: never Counseling given: No Substance/Drug Use: never Counseling given: No Lives independently: Yes Household members: spouse Marital status: Current occupational status: disabled Do you think of yourself as: Straight/Heterosexual Current gender identity: Male Physical Exam Const: COMMON NORMALS: alert GENERAL APPEARANCE: cooperative and well developed HENMT: COMMON NORMALS: normocephalic HEAD & SCALP: normocephalic OTHER: Laceration on scalp with bleeding controlled. No العراقي signs or raccoon eyes. No hemotympanum. No otorrhea or rhinorrhea. Jaw alignment normal. Dentition baseline. No obvious bony step-offs. No septal hematoma. No evidence of ocular entrapment. Eye: COMMON NORMALS: conjunctivae normal CONJUNCTIVA: Yes conjunctivae normal SCLERA: sclerae normal Neck/C-Spine: COMMON NORMALS: supple GENERAL: Yes trachea midline Chest: OTHER: Left chest wall tenderness without obvious deformity Resp: COMMON NORMALS: normal respiratory effort EFFORT & INSPECTION: Yes able to speak in complete sentences Cardio: COMMON NORMALS: regular rate and regular rhythm RATE: regular rate RHYTHM: regular rhythm GI: COMMON NORMALS: Soft to palpation PALPATION: Yes Soft to palpation and Yes Tenderness to palpation present (GI) Extremity: GENERAL: Yes normal exam except as noted and No edema Neuro: COMMON NORMALS: moves all extremities SENSORIUM/ORIENTATION: Yes alert and No Orientation impaired Psych: COMMON NORMALS: mental status grossly normal and Normal thought process present THOUGHT PROCESS: Normal thought process present Procedures Laceration Laceration 1: Site: scalp Size (cm): 3 Description: irregular and clean Depth: simple, single layer Local Anesthetic: lidocaine 1% and with epi Amount of anesthesia used (mL): 3 Skin layer closed with: other (Edelmira) Number of sutures: 3 Course Vital Signs: Vital signs: Vital Signs Temperature 97.6 F 05/05/23 15:09 Pulse Rate 90 05/05/23 18:55 Respiratory Rate 16 05/05/23 15:09 Blood Pressure 131/88 05/05/23 18:55 Pulse Oximetry 97 05/05/23 18:55 Oxygen Delivery Me thod Room Air 05/05/23 15:09 MDM - Fall Medical Decision Making 63-year-old gentleman presenting with fall from stairs with primarily left-sided pain. He does have evidence of head strike. Head to toe exam performed. Labs without significant hematologic or metabolic abnormalities to explain symptoms. Imaging ordered as appropriate based on history and clinical exam. No acute internal injuries. Patient does have radial head fracture and suspected triquetral fracture. Laceration repaired with edelmira and came together well. During ED course patient treated with analgesia and Tdap updated. Splint and sling placed. Plan for outpatient orthopedic follow-up. The results of ED evaluation were discussed with the patient including prescriptions and/or symptomatic cares (if applicable) including appropriate and responsible use, followup plan, and return precautions. The patient verbalized understanding and felt safe for discharge. Medical Records I reviewed the patient's medical records. Lab Data I reviewed the patient's lab results. 05/05/23 15:32 05/05/23 15:32 Radiology Impressions Cervical Spine CT 05/05/23 15:[address]: [address] evidence of acute cervical spine traumatic injury. 2. Additional findings, as above. Chest/Abdomen/Pelvis CT 05/05/23 15:22 IMPRESSION: 1. Mild basilar atelectasis. 2. Nonspecific right pulmonary nodules as described. Follow-up according to Fleischner society guidelines is recommended. 3. No acute finding. IMPRESSION: 1. Fatty liver 2. No acute findings in the abdomen or pelvis. Elbow X-Ray 05/05/23 15:22 IMPRESSION: Nondisplaced radial head fracture. Forearm X-Ray 05/05/23 15:22 IMPRESSION: No acute findings. ADDENDUM: 05/05/23 1638 Radial head fracture better seen on corresponding elbow radiograph. Head CT 05/05/23 15:[address]: 1[address] evidence of acute intracranial pathology. 2. Additional findings, as above. Humerus X-Ray 05/05/23 15:22 IMPRESSION: No acute findings. Wrist X-Ray 05/05/23 15:22 IMPRESSION: Findings suggestive of a triquetral avulsion fracture of the wrist. This appears age indeterminate, correlate for point tenderness on the dorsal wrist. Laboratory Results WBC 8.7 10^3/uL (4.0-10.0) 05/05/23 15:32 RBC 4.21 10^6/uL (4.1-5.3) 05/05/23 15:32 Hgb 12.4 g/dL (11.7-16.6) 05/05/23 15:32 Hct 39.1 % (42.0-52.0) L 05/05/23 15:32 MCV 92.9 fl (80-94) 05/05/23 15:32 MCH 29.5 pg (28.0-34.0) 05/05/23 15:32 MCHC 31.7 g/dL (30.0-36.0) 05/05/23 15:32 RDW 14.6 % (12.1-15.1) 05/05/23 15:32 Plt Count 240 10^3/cmm (130-400) 05/05/23 15:32 MPV 8.8 fL (7.4-10.4) 05/05/23 15:32 Neut % (Auto) 74.6 % 05/05/23 15:32 Lymph % (Auto) 16.1 % 05/05/23 15:32 Lewis % (Auto) 6.8 % 05/05/23 15:32 Eos % (Auto) 1.5 % 05/05/23 15:32 Baso % (Auto) 0.7 % 05/05/23 15:32 Neut # (Auto) 6.48 10^3/uL (1.8-7.7) 05/05/23 15:32 Lymph # (Auto) 1.4 10^3/uL (0.8-4.8) 05/05/23 15:32 Lewis # (Auto) 0.6 10^3/uL (0.2-0.9) 05/05/23 15:32 Eos # (Auto) 0.1 10^3/uL (0.0-0.8) 05/05/23 15:32 Baso # (Auto) 0.1 10^3/uL (0.0-0.1) 05/05/23 15:32 Nucleated RBC % (auto) 0 % 05/05/23 15:32 Nucleated RBCs # 0.0 /100WBC 05/05/23 15:32 Sodium 138 mmol/L (136-145) 05/05/23 15:32 Potassium 4.5 mmol/L (3.5-5.1) 05/05/23 15:32 Chloride 102 mmol/L (98-107) 05/05/23 15:32 Carbon Dioxide 24 mmol/L (22-29) 05/05/23 15:32 Anion Gap 16.5 (5-19) 05/05/23 15:32 BUN 17 mg/dL (8-23) 05/05/23 15:32 Creatinine 1.0 mg/dL (0.7-1.2) 05/05/23 15:32 GFR Calculation 76.0 mL/min (90-130) L 05/05/23 15:32 Glucose 131 mg/dL (65-115) H 05/05/23 15:32 Calculated Osmolality 289 mOsm/kg (285-295) 05/05/23 15:32 Calcium 8.8 mg/dL (8.5-10.5) 05/05/23 15:32 Total Bilirubin 0.5 mg/dL (0.15-1.2) 05/05/23 15:32 AST 31 U/L (0-40) 05/05/23 15:32 ALT 16 U/L (0-41) 05/05/23 15:32 Alkaline Phosphatase 86 U/L (40-130) 05/05/23 15:32 Total Protein 6.8 g/dL (6.6-8.7) 05/05/23 15:32 Albumin 4.1 g/dL (3.5-5.2) 05/05/23 15:32 Globulin 2.7 g/dL (1.3-4.6) 05/05/23 15:32 Discharge Plan Discharge Patient Disposition: Home Clinical Impression: Fall down stairs, Laceration of scalp, Fracture of head of left radius Condition: Stable Prescriptions: No Action loratadine [Claritin] 10 mg tablet 10 mg PO DAILY docusate sodium [Stool Softener] 100 mg capsule 100 mg PO BID nitroglycerin 0.4 mg tablet, sublingual 0.4 mg sublingual Q5M PRN (Reason: chest pain) 30 Days Qty: 30 3RF Rx Instructions: until response; do not exceed 3 doses per episode glimepiride 4 mg tablet 4 mg PO BID Qty: 180 3RF (DME) Diabetic shoes with 3 sets of insoles See Rx Instructions .Route .MEDSUPPLY Qty: 1 0RF Rx Instructions: As directed (DME) WRIST BRACE See Rx Instructions .Route .MEDSUPPLY Qty: 1 0RF Rx Instructions: DIAGNOSIS FRACTURE TRIQUETRIUM /RADIAL HEAD FRACTURE Eliquis 5 mg tablet 5 mg PO BID Qty: 180 3RF metformin 750 mg tablet extended release 24 hr 1,500 mg PO DAILY Qty: 180 3RF Rx Instructions: Take after the largest meal. Take one daily for the first week then increase to 2 tabs thereafter. lorazepam 0.5 mg tablet 0.5 mg PO BID PRN (Reason: anxiety) Qty: 60 3RF gabapentin 300 mg capsule See Rx Instructions .ROUTE .COMPLEX Qty: 150 2RF Dose Instruction: TAKE ONE CAPSULE BY MOUTH AT 8:00AM AND 3:00PM AND TAKE THREE CAPSULES AT 9:00PM Rx Instructions: TAKE ONE CAPSULE BY MOUTH AT 8:00AM AND 3:00PM AND TAKE THREE CAPSULES AT 9:00PM oxycodone 10 mg tablet 10 mg PO BID PRN (Reason: pain) 30 Days Qty: 60 0RF oxycodone [OxyContin] 30 mg tablet,oral only,ext.rel.12 hr 30 mg PO BID 30 Days Qty: 60 0RF cyclobenzaprine 10 mg tablet 10 mg PO TID PRN (Reason: Spasms) carvedilol 6.25 mg tablet 6.25 mg PO BID atorvastatin 20 mg tablet 20 mg PO DAILY acyclovir 400 mg tablet 40 mg PO BID Discharge Orders: Discharge ED (Routine); Ordered 05/05/23 Ordered By: Tj Solares Referrals: Otf Mejía MD [Primary Care Provider] - Discharge Diet: Usual diet Discharge Activity: Increase activity as tolerated Patient Instructions: Scalp Laceration, Elbow Fracture (ED), Staple Care (ED), Opioid Safety Activity Restrictions/Additional Instructions: Thank you for visiting the emergency department. You were seen and evaluated for fall with multiple injuries. Internal injuries were noted to be a left elbow fracture. No other internal injuries were identified. Most likely cause of your pain will be due to soft tissue contusions and abrasions. Lease continue your pain medication regimen. I will message case management for follow-up with orthopedics. Please also follow-up with your primary care provider. Return for uncontrolled pain, anything else as discussed, or anything else that you are concerned about and feel needs emergency department evaluation. Coding Level of Care Code ED Speech Language Therapist for Kei Ramon
[2023-05-05 15:09] VITALS: BP 149/95; PULSE 78; RESP 16; TEMP 36.4; O2SAT 94
--- NOTE | 2023-05-05 15:22 | XRR_ITS ---
PROCEDURE INFORMATION: Exam: XR Left Elbow Exam date and time: 05/05/2023 3:41 PM Age: 63 years old Clinical indication: Injury or trauma; Fall; Blunt trauma (contusions or hematomas); Elbow; Left; Additional info: Fall, pain TECHNIQUE: Imaging protocol: Radiologic exam of the left elbow. Views: 3 or more views. COMPARISON: CR XR finger LT min 2V [id number] 07/07/2020 1:54 PM FINDINGS: Bones/joints: Comminuted, nondisplaced radial head fracture noted. The rest of the osseous structures of the elbow are intact. Soft tissues: Normal. XR/XR elbow LT min 3V* [id number] IMPRESSION: Nondisplaced radial head fracture.
--- NOTE | 2023-05-05 15:22 | XRR_ITS ---
PROCEDURE INFORMATION: Exam: XR Left Forearm Exam date and time: 05/05/2023 3:41 PM Age: 63 years old Clinical indication: Injury or trauma; Fall; Blunt trauma (contusions or hematomas); Arm, lower; Left; Additional info: Fall, pain TECHNIQUE: Imaging protocol: Radiologic exam of the left forearm. Views: 2 views. COMPARISON: CR XR finger LT min 2V [id number] 07/07/2020 1:54 PM FINDINGS: Bones/joints: Radius and ulna are intact. Negative for fracture. Soft tissues: Normal. XR/XR forearm LT 2V [id number] IMPRESSION: No acute findings.
--- NOTE | 2023-05-05 15:22 | CTR_ITS ---
PROCEDURE INFORMATION: Exam: CT Head Without Contrast Exam date and time: 05/05/2023 4:32 PM Age: 63 years old Clinical indication: Injury or trauma; Fall; Blunt trauma (contusions or hematomas); Without loss of consciousness; Additional info: Fall down stairs, head injury, anticoagulation TECHNIQUE: Imaging protocol: Computed tomography of the head without contrast. Axial, coronal and sagittal reformatted images were created and reviewed. Radiation optimization: All CT scans at this facility use at least one of these dose optimization techniques: automated exposure control; mA and/or kV adjustment per patient size (includes targeted exams where dose is matched to clinical indication); or iterative reconstruction. REPORTING DATA: Count of CT and Cardiac NM exams in prior 12 months: This patient has received 0 known CTs and 0 known cardiac nuclear medicine studies in the 12 months prior to the current study. COMPARISON: No relevant prior studies available. RADIATION DOSE METRICS: Total DLP (mGy-cm): 1150.2 FINDINGS: Brain: Patchy areas of hypoattenuation in the periventricular and subcortical white matter, consistent with chronic small vessel ischemic disease. Focal, well-circumscribed hypodensities in the basal ganglia, consistent with chronic lacunar infarcts. No CT evidence of acute intracranial hemorrhage or acute territorial infarction. No significant mass effect or midline shift. Basal cisterns patent. Cerebral ventricles: Prominence of the cortical sulci, cisterns and ventricular system, consistent with cerebral and cerebellar volume loss. Paranasal sinuses: Mild ethmoid mucosal thickening. No air-fluid levels. Mastoid air cells: Grossly unremarkable. Bones/joints: No acute osseous abnormality. Soft tissues: Grossly unremarkable. Vasculature: Calcific atherosclerotic disease in the cavernous internal carotid arteries, as well as the vertebro-basilar system. CT/CT head wo con* [id number] IMPRESSION: 1. No CT evidence of acute intracranial pathology. 2. Additional findings, as above.
--- NOTE | 2023-05-05 15:22 | CTR_ITS ---
PROCEDURE INFORMATION: Exam: CT Cervical Spine Without Contrast Exam date and time: 05/05/2023 4:32 PM Age: 63 years old Clinical indication: Injury or trauma; Fall; Blunt trauma; Additional info: Fall down stairs, head injury, anticoagulation TECHNIQUE: Imaging protocol: Computed tomography of the cervical spine without contrast. Axial, coronal and sagittal reformatted images were created and reviewed. Radiation optimization: All CT scans at this facility use at least one of these dose optimization techniques: automated exposure control; mA and/or kV adjustment per patient size (includes targeted exams where dose is matched to clinical indication); or iterative reconstruction. REPORTING DATA: Count of CT and Cardiac NM exams in prior 12 months: This patient has received 0 known CTs and 0 known cardiac nuclear medicine studies in the 12 months prior to the current study. COMPARISON: MR thoracic spine wo/w [id number] 12/07/2021 9:13 AM RADIATION DOSE METRICS: Total DLP (mGy-cm): 1533.2 FINDINGS: Bones/joints: Osteopenia. Mild straightening of the normal cervical lordosis. No CT evidence of acute fracture, dislocation or subluxation. Mild anterolisthesis of C4 on C5. Alignment otherwise anatomic. Vertebral body heights maintained. Mild multilevel degenerative changes, characterized by disc space narrowing, osteophytosis and uncovertebral and facet joint hypertrophy. Mild multilevel spinal canal and neural foraminal narrowing. Lungs: Grossly unremarkable. Soft tissues: Grossly unremarkable. CT/CT cervical spin wo con* [id number] IMPRESSION: 1. No CT evidence of acute cervical spine traumatic injury. 2. Additional findings, as above.
--- NOTE | 2023-05-05 15:22 | CTR_ITS ---
PROCEDURE INFORMATION: Exam: CT Chest With Contrast; Diagnostic Exam date and time: 05/05/2023 4:37 PM Age: 63 years old Clinical indication: Injury or trauma; Fall; Generalized; Blunt trauma (contusions or hematomas); Additional info: Fall down stairs, head injury, anticoagulation TECHNIQUE: Imaging protocol: Diagnostic computed tomography of the chest with contrast. Radiation optimization: All CT scans at this facility use at least one of these dose optimization techniques: automated exposure control; mA and/or kV adjustment per patient size (includes targeted exams where dose is matched to clinical indication); or iterative reconstruction. Contrast material: OMNIPAQUE 350; Contrast volume: 100 ml; Contrast route: INTRAVENOUS (IV); REPORTING DATA: Count of CT and Cardiac NM exams in prior 12 months: This patient has received 0 known CTs and 0 known cardiac nuclear medicine studies in the 12 months prior to the current study. COMPARISON: CT cervical spin wo con* [id number] 05/05/2023 4:32 PM RADIATION DOSE METRICS: Total DLP (mGy-cm): 0.01 FINDINGS: Tubes, catheters and devices: There is an infusion port catheter in place with its tip in the superior vena cava. Lungs: There is some mild dependent atelectasis at the lung bases. There is a 3 mm sized noncalcified pulmonary nodule left pulmonary apex series 4, image 9, superior segment right lower lobe measuring 4 mm image number 28 series 4 and 5 mm nodule middle lobe image 31 series 4. For patients at low risk (minimal or absent history of smoking and of other known risk factors), no routine follow-up is indicated. For patients at high risk (history of smoking or of other known risk factors), consider optional CT Chest at 12 months. (Reference: Erickson) Pleural spaces: Unremarkable. No pneumothorax. No pleural effusion. Heart: Heart is within normal limits of size. Coronary arteries: There is severe atherosclerotic calcification of the coronary arteries. Mediastinal space: There is no evidence of mediastinal fluid, masses, or gas. Lymph nodes: There is no evidence of lymphadenopathy. Vasculature: There is no thoracic aortic aneurysm or dissection. Bones/joints: The thoracic spine demonstrates moderate degenerative changes at multiple levels. No acute fracture is demonstrated. Soft tissues: Unremarkable. REFERENCES: Erickson Niak, et al. Guidelines for Management of Incidental Pulmonary Nodules Detected on CT Images: From the Fleischner Society 2017. Radiology. 2017;284(1):228-243. PROCEDURE INFORMATION: Exam: CT Abdomen And Pelvis With Contrast Exam date and time: 05/05/2023 4:37 PM Age: 63 years old Clinical indication: Injury or trauma; Fall; Generalized; Blunt trauma (contusions or hematomas); Additional info: Fall down stairs, head injury, anticoagulation TECHNIQUE: Imaging protocol: Computed tomography of the abdomen and pelvis with contrast. Radiation optimization: All CT scans at this facility use at least one of these dose optimization techniques: automated exposure control; mA and/or kV adjustment per patient size (includes targeted exams where dose is matched to clinical indication); or iterative reconstruction. Contrast material: OMNIPAQUE 350; Contrast volume: 100 ml; Contrast route: INTRAVENOUS (IV); REPORTING DATA: Count of CT and Cardiac NM exams in prior 12 months: This patient has received 0 known CTs and 0 known cardiac nuclear medicine studies in the 12 months prior to the current study. COMPARISON: MR thoracic spine wo/w [id number] 12/07/2021 9:13 AM RADIATION DOSE METRICS: Total DLP (mGy-cm): 1641.79 FINDINGS: Limitations: Study somewhat limited due to streak artifact created by the patient being scanned with the arms at the sides. Liver: There is a diffuse decrease in hepatic parenchymal density, consistent with mild fatty infiltration. There is no focal abnormality within the liver. Gallbladder and bile ducts: The gallbladder is normal. Pancreas: The pancreas is normal. Spleen: The spleen is normal. Adrenal glands: The adrenal glands are normal. Kidneys and ureters: The kidneys are normal. There is no evidence of hydronephrosis. There is no evidence of renal or ureteral calcifications. Stomach and bowel: Moderate diverticulosis is present in the distal colon. There is no evidence of colitis/diverticulitis. There is no evidence of intestinal obstruction. Appendix: Not identified Intraperitoneal space: There is no evidence of free intraperitoneal fluid. Vasculature: The aorta demonstrates mild atherosclerotic calcification. Lymph nodes: There is no evidence of lymphadenopathy. There is no evidence of lymphadenopathy. Urinary bladder: Unremarkable as visualized. Reproductive: Unremarkable as visualized. Bones/joints: The lumbar spine demonstrates moderate degenerative changes at multiple levels. There are findings of osteopenia throughout. There is chronic compression deformity at L2 status post vertebroplasty. No acute fracture is demonstrated. Soft tissues: There is a small left inguinal hernia containing only fat. CT/CT chest abdpel w/*[id number] IMPRESSION: 1. Mild basilar atelectasis. 2. Nonspecific right pulmonary nodules as described. Follow-up according to Fleischner society guidelines is recommended. 3. No acute finding. IMPRESSION: 1. Fatty liver 2. No acute findings in the abdomen or pelvis.
--- NOTE | 2023-05-05 15:22 | XRR_ITS ---
PROCEDURE INFORMATION: Exam: XR Left Humerus Exam date and time: 05/05/2023 3:41 PM Age: 63 years old Clinical indication: Injury or trauma; Fall; Blunt trauma (contusions or hematomas); Arm, upper; Left; Additional info: Fall, pain TECHNIQUE: Imaging protocol: Radiologic exam of the left humerus. Views: 2 or more views. COMPARISON: No relevant prior studies available. FINDINGS: Bones/joints: Left humerus is intact. Negative for fracture. Soft tissues: Normal. XR/[place] [id number] IMPRESSION: No acute findings.
--- NOTE | 2023-05-05 15:22 | XRR_ITS ---
PROCEDURE INFORMATION: Exam: XR Left Wrist Exam date and time: 05/05/2023 3:41 PM Age: 63 years old Clinical indication: Injury or trauma; Fall; Blunt trauma (contusions or hematomas); Wrist; Left; Additional info: Fall, pain TECHNIQUE: Imaging protocol: Radiologic exam of the left wrist. Views: 3 or more views. COMPARISON: CR XR finger LT min 2V [id number] 07/07/2020 1:54 PM FINDINGS: Bones/joints: Findings suggestive of a triquetral avulsion fracture on lateral view of the wrist. The rest of the osseous structures of the wrist are intact. Soft tissues: Normal. XR/XR wrist LT min 3V* [id number] IMPRESSION: Findings suggestive of a triquetral avulsion fracture of the wrist. This appears age indeterminate, correlate for point tenderness on the dorsal wrist.
[2023-05-05] MEDS: morphine 4 mg/mL SDV 1 mL IVP ×2 (15:30→17:49)
[2023-05-05] MEDS: tetanus-dipt-pertussis 0.5 mL SDV IM (15:30)
[2023-05-05 15:55] LABS: Basophils # 0.1 10^3/uL (0.0-0.1); Basophils % 0.7 %; Eosinophils # 0.1 10^3/uL (0.0-0.8); Eosinophils % 1.5 %; Hematocrit 39.1 % (42.0-52.0); Hemoglobin 12.4 g/dL (11.7-16.6); Lymphocytes # 1.4 10^3/uL (0.8-4.8); Lymphocytes % 16.1 %; Mean Corpuscular HGB Conc 31.7 g/dL (30.0-36.0); Mean Corpuscular Hemoglobin 29.5 pg (28.0-34.0); Mean Corpuscular Volume 92.9 fl (80-94); Mean Platelet Volume 8.8 fL (7.4-10.4); Monocytes # 0.6 10^3/uL (0.2-0.9); Monocytes % 6.8 %; Neutrophils # 6.48 10^3/uL (1.8-7.7); Neutrophils % 74.6 %; Nucleated Red Blood Cells % 0 %; Platelet Count 240 10^3/cmm (130-400); Red Blood Count 4.21 10^6/uL (4.1-5.3); Red Cell Distribution Width 14.6 % (12.1-15.1); White Blood Count 8.7 10^3/uL (4.0-10.0)
[2023-05-05 15:56] VITALS: BP 146/94; PULSE 87; O2SAT 98
[2023-05-05 16:12] LABS: Alanine Aminotransferase 16 U/L (0-41); Albumin Level 4.1 g/dL (3.5-5.2); Alkaline Phosphatase 86 U/L (40-130); Anion Gap 16.5 (5-19); Aspartate Amino Transferase 31 U/L (0-40); Blood Urea Nitrogen 17 mg/dL (8-23); Calcium 8.8 mg/dL (8.5-10.5); Carbon Dioxide 24 mmol/L (22-29); Chloride 102 mmol/L (98-107); Globulin 2.7 g/dL (1.3-4.6); Glucose 131 mg/dL (65-115); Osmolality Calculated 289 mOsm/kg (285-295); Potassium 4.5 mmol/L (3.5-5.1); Sodium 138 mmol/L (136-145); Total Bilirubin 0.5 mg/dL (0.15-1.2); Total Protein 6.8 g/dL (6.6-8.7)
[2023-05-05] MEDS: iohexol 350 mg/mL 500 mL Btl (per mL) IV (16:34)
[2023-05-05 16:50] VITALS: BP 147/103; PULSE 91; O2SAT 100
[2023-05-05 17:32] VITALS: BP 165/107; PULSE 92; O2SAT 96
[2023-05-05] MEDS: lidocaine-epi 1% 20 mL INJ INJECTION (17:51)
[2023-05-05 18:07] VITALS: BP 148/117; PULSE 90; O2SAT 97
[2023-05-05 18:55] VITALS: BP 131/88; PULSE 90; O2SAT 97
--- NOTE | 2023-05-08 14:24 | DCPLANNER ---
Addendum entered by Marley Motley 05/11/23 07:32: Patient had a follow up appointment scheduled with ortho - patient did attend appointment Addendum entered by Marley Motley 05/08/23 16:19: Patient has a follow up appointment scheduled for Tuesday, May 09, 2023 at 1:[address] Jacobson at ortho. Original Note: financial accounting manager had message to schedule a follow up appointment for patient with ortho. financial accounting manager sent patients information to the front office staff at ortho. Patients information will be printed and reviewed. Clinic will call patient with appointment information.
== END 2023-05-05 18:57 | disposition home or self-care (01) ==
PROVIDERS: Emergency Provider Emergency Medicine; PCP Internal Medicine
DX: S52.125A Nondisplaced fracture of head of left radius, initial encounter for closed fracture (principal); S01.01XA Laceration without foreign body of scalp, initial encounter; Y92.009 Unspecified place in unspecified non-institutional (private) residence as the place of occurrence of the external cause; Z23 Encounter for immunization; R07.89 Other chest pain
CPT/HCPCS: 12002; 36415; 70450; 71260; 72125; 73060; 73080; 73090; 73110; 74177; 80053; 85025; 90715; 96374; 96376; 99285; J2270; Q9967

== ENCOUNTER → 2023-05-09 13:41 | Outpatient (BNVA) | payer MEDICARE, BC, SELFPAY | PROVIDERS: PCP Internal Medicine; Referring Provider Emergency Medicine; Visit Provider Student in an Organized Health Care Education/Training Program | DX: S52.122A Displaced fracture of head of left radius, initial encounter for closed fracture (principal); W10.8XXA Fall (on) (from) other stairs and steps, initial encounter; S62.112A Displaced fracture of triquetrum [cuneiform] bone, left wrist, initial encounter for closed fracture | CPT/HCPCS: 24650; 25630; 26605; 73080; 73110; 99204 ==

== ENCOUNTER → 2023-05-16 13:31 | Outpatient (BNVA) | payer MEDICARE, BC, SELFPAY | PROVIDERS: PCP Internal Medicine; Visit Provider Student in an Organized Health Care Education/Training Program | DX: S62.112A Displaced fracture of triquetrum [cuneiform] bone, left wrist, initial encounter for closed fracture; S52.122A Displaced fracture of head of left radius, initial encounter for closed fracture; W10.9XXA Fall (on) (from) unspecified stairs and steps, initial encounter | CPT/HCPCS: 97760; 99213; L3908 ==

== ENCOUNTER → 2023-05-16 13:54 | Outpatient (BNVA) | payer MEDICARE, BC, SELFPAY | PROVIDERS: PCP Internal Medicine; Visit Provider Student in an Organized Health Care Education/Training Program | DX: S62.112A Displaced fracture of triquetrum [cuneiform] bone, left wrist, initial encounter for closed fracture; S52.122A Displaced fracture of head of left radius, initial encounter for closed fracture; W10.9XXA Fall (on) (from) unspecified stairs and steps, initial encounter | CPT/HCPCS: 73080; 73110; 97760; 99213; L3908 ==

== ENCOUNTER 2023-05-30 13:42 | Oncology outpatient (recurring) (ONCR) | payer MEDICARE, BC, SELFPAY ==
[2023-05-30 13:49] VITALS: BP 129/87; PULSE 90; RESP 18; TEMP 36.2; O2SAT 97
[2023-05-30 14:02] LABS: Basophils # 0.1 10^3/uL (0.0-0.1); Basophils % 0.8 %; Eosinophils # 0.2 10^3/uL (0.0-0.8); Eosinophils % 2.5 %; Hematocrit 38.7 % (42.0-52.0); Hemoglobin 12.7 g/dL (11.7-16.6); Lymphocytes # 1.7 10^3/uL (0.8-4.8); Lymphocytes % 28.3 %; Mean Corpuscular HGB Conc 32.8 g/dL (30.0-36.0); Mean Corpuscular Hemoglobin 29.2 pg (28.0-34.0); Monocytes # 0.4 10^3/uL (0.2-0.9); Monocytes % 6.9 %; Neutrophils # 3.62 10^3/uL (1.8-7.7); Neutrophils % 61.2 %; Nucleated Red Blood Cells % 0 %; Platelet Count 264 10^3/cmm (130-400); Red Blood Count 4.35 10^6/uL (4.1-5.3); Red Cell Distribution Width 14.2 % (12.1-15.1); White Blood Count 5.9 10^3/uL (4.0-10.0)
[2023-05-30 14:32] LABS: Alanine Aminotransferase 12 U/L (0-41); Alkaline Phosphatase 98 U/L (40-130); Anion Gap 14.7 (5-19); Aspartate Amino Transferase 27 U/L (0-40); Blood Urea Nitrogen 17 mg/dL (8-23); Calcium 8.8 mg/dL (8.5-10.5); Carbon Dioxide 27 mmol/L (22-29); Chloride 100 mmol/L (98-107); Globulin 2.6 g/dL (1.3-4.6); Glomerular Filtration Rate 85.8 mL/min (90-130); Glucose 224 mg/dL (65-115); Immunoglobulin IGA 139 mg/dL (70-400); Immunoglobulin IGG 1025 mg/dL (700-1600); Immunoglobulin IGM 29 mg/dL (40-230); Magnesium 1.8 mg/dL (1.7-2.3); Osmolality Calculated 293 mOsm/kg (285-295); Phosphorus 3.7 mg/dL (2.5-4.5); Potassium 4.7 mmol/L (3.5-5.1); Sodium 137 mmol/L (136-145); Total Bilirubin 0.4 mg/dL (0.15-1.2); Total Protein 6.6 g/dL (6.6-8.7); Uric Acid 5.9 mg/dL (3.4-7.0)
[2023-05-31 14:45] LABS: ALBUMIN 3.6 g/dL (3.8-4.8); ALPHA 1 GLOBULIN 0.3 g/dL (0.2-0.3); ALPHA 2 GLOBULIN 0.7 g/dL (0.5-0.9); BETA 1 GLOBULIN 0.4 g/dL (0.4-0.6); BETA 2 GLOBULIN 0.2 g/dL (0.2-0.5); Beta-2-Microglobulin 2.08 mg/L (< OR = 2.51); KAPPA/LAMBDA LIGHT CHAINS FREE 0.77 (0.26-1.65); LAMBDA LIGHT CHAIN, FREE, SERU 23.5 mg/L (5.7-26.3); PROTEIN, TOTAL 6.3 g/dL (6.1-8.1)
== END 2023-06-15 23:59 | disposition home or self-care (01) ==
PROVIDERS: Visit Provider Internal Medicine Medical Oncology
DX: C90.01 Multiple myeloma in remission (principal)
CPT/HCPCS: 36591; 80053; 82232; 82784; 83735; 83883; 84100; 84155; 84165; 84550; 85025; 86334; J1642

== ENCOUNTER 2023-06-06 12:38 | Outpatient (RCR) | payer MEDICARE, BC, SELFPAY | END 2023-06-15 23:59 | disposition home or self-care (01) | LOC: SOT 12:38 | PROVIDERS: PCP Internal Medicine; Visit Provider Student in an Organized Health Care Education/Training Program | DX: S62.113D Displaced fracture of triquetrum [cuneiform] bone, unspecified wrist, subsequent encounter for fracture with routine healing (principal); X58.XXXD Exposure to other specified factors, subsequent encounter | CPT/HCPCS: 97110; 97165 ==